=== PATIENT | male | born 1970 | race Caucasian/White ===

== ENCOUNTER 2024-07-02 08:51 | Emergency (ER) | payer OTHER, SELFPAY ==
[2024-07-02] VITALS (22 sets, daily range): BP systolic 114–145; BP diastolic 64–87; PULSE 49–77; RESP 16–18; TEMP 35.7–36.7; O2SAT 95–100
--- NOTE | 2024-07-02 09:00 | DI.US_ITS ---
Exam(s) US LOWER EXTREMITY VENOUS LT EXAM: US LOWER EXTREMITY VENOUS LT CLINICAL HISTORY: h/o DVT, redness, swelling, warmth (knee to foot) TECHNIQUE: Left lower extremity venous ultrasound performed using grayscale, color-flow, and spectra l Doppler analysis. COMPARISON: No exams were available for comparison FINDINGS: The left common femoral, femoral and popliteal veins demonstrate normal compressibility, augmentation , and color Doppler. The posterior tibial and peroneal veins are patent. The saphenofemoral junction is unremarkable. There is no evidence of a Bliss cyst. There is edema in the soft tissues of the l ower leg. IMPRESSION: No evidence of a left lower extremity DVT. DATA REPOSITORY:
--- NOTE | 2024-07-02 09:15 | ED.GENADUL_ITS ---
Discharge Plan Disposition Patient Disposition: Home Discharge Details Clinical Impression: Cellulitis Primary Care Provider: Alee Mclain ED Provider: Yun Menchaca Home Meds and New Rx's Prescriptions: New amoxicillin 875 mg tablet 875 mg PO BID Qty: 10 0RF doxycycline hyclate 100 mg capsule 100 mg PO BID Qty: 10 0RF No Action Anoro Ellipta 62.5-25 mcg/actuation blister with device 1 inh inhalation DAILY pantoprazole 40 mg tablet,delayed release (DR/EC) 40 mg PO DAILY acetaminophen 325 mg capsule 650 mg PO BID PRN buprenorphine-naloxone 2-0.5 mg film 2 film sublingual DAILY Rx Instructions: place 1 strip/tab under (each) side of tongue buprenorphine-naloxone 8-2 mg film 2 film sublingual DAILY Rx Instructions: place 1 strip/tab under (each) side of tongue amlodipine 10 mg tablet 10 mg PO DAILY metoprolol succinate 100 mg tablet extended release 24 hr 100 mg PO DAILY dabigatran etexilate [Pradaxa] 150 mg capsule 150 mg PO BID montelukast 10 mg tablet 10 mg PO DAILY lisinopril 30 mg tablet 30 mg PO DAILY albuterol sulfate 90 mcg/actuation HFA aerosol inhaler 1 inh inhalation 6XD PRN Discharge Instructions Additional Instructions: Please follow-up with your primary care provider/medical provider within the next 2 to 3 days for reassessment to make sure you are skin infection is healing up well. Take antibiotics as prescribed for the full course. Please note this may cause antibiotic associated diarrhea, so please try taking with probiotics such as yogurt or supplements. Elevate your leg above heart level to help with swelling and discomfort. Tylenol 650 mg every 6 hours may also be used for discomfort. Wash your legs daily with antibacterial soap and water apply a thin layer of bacitracin or triple antibiotic ointment. Avoid scratching, as this may open up skin and further contribute to infection Return to emergency care if develop new signs of worsening infection such as fever/chills, general feeling of unwellness, worsening swelling/redness/pain despite treatment, numbness to your foot, or if you are very worried and need to be rechecked again immediately HPI General Date/Time Provider Initiated Documentation: 07/02/24 08:55 . HPI Narrative: Saroj is a 54 year old male who presents to the ED today from [facility] for e valuation of L lower leg swelling/tenderness/warmth since yesterday afternoon. He does admit to scratching the skin on his legs a lot due to dry water in the facility, but denies recent trauma or inciting event. Denies fever/chills, general unwellness, nausea/vomiting, chest pain, shortness of breath, change in bowel or bladder function. 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 Physical exam remarkable for significant swelling, warmth, and tenderness from just below knee to the foot. Distal pulses intact, brisk cap refill. Multiple excoriations noted on bilateral lower legs. Calf measurement 48.5 (L) versus 44.0 (R). Full painless range of motion of knee. Range of motion to ankle is limited due to swelling. Patient is alert and oriented, easy work of breathing, no acute distress. DDx includes but is not limited to cellulitis, DVT despite anticoagulation. No red flags concerning for acute bony abnormality or neurological compromise. I independently interpreted the following tests: CBC and CMP unremarkable. Ultrasound of lower extremity performed, no DVT noted, tissue edema noted, consistent with clinical picture History and presentation consistent with uncomplicated cellulitis. Will treat with doxycycline and amoxicillin to cover for strep and staph coverage due to incarceration. Recommend close follow-up with medical staff for reevaluation. While in the emergency department Saroj received Tylenol for discomfort Reviewed discharge instructions with patient, including importance of elevation, antibiotic use, wound care, and avoidance of scratching. Educated on red flags indicating need for return to emergency care. Related Data Home Medications ?Medication ?Instructions ?Recorded ?Confirmed acetaminophen 325 mg capsule 650 mg PO BID PRN 07/02/24 07/02/24 albuterol sulfate 90 mcg/actuation 1 inh inhalation 6XD PRN 07/02/24 07/02/24 aerosol inhaler amlodipine 10 mg tablet 10 mg PO DAILY 07/02/24 07/02/24 amoxicillin 875 mg tablet 875 mg PO BID #10 tabs 07/02/24 buprenorphine 2 mg-naloxone 0.5 mg 2 film sublingual DAILY 07/02/24 07/02/24 sublingual film buprenorphine 8 mg-naloxone 2 mg 2 film sublingual DAILY 04/23/25 04/23/25 sublingual film dabigatran etexilate 150 mg 150 mg PO BID 07/02/24 07/02/24 capsule (Pradaxa) doxycycline hyclate 100 mg capsule 100 mg PO BID #10 caps 07/02/24 lisinopril 30 mg tablet 30 mg PO DAILY 07/02/24 07/02/24 metoprolol succinate 100 mg 100 mg PO DAILY 07/02/24 07/02/24 tablet,extended release 24 hr montelukast 10 mg tablet 10 mg PO DAILY 07/02/24 07/02/24 pantoprazole 40 mg tablet,delayed 40 mg PO DAILY 07/02/24 07/02/24 release umeclidinium 62.5 mcg-vilanterol 1 inh inhalation DAILY 07/02/24 07/02/24 25 mcg/actuation powdr for inhalation (Anoro Ellipta) Previous Rx's ?Medication ?Instructions ?Recorded amoxicillin 875 mg tablet 875 mg PO BID #10 tabs 07/02/24 doxycycline hyclate 100 mg capsule 100 mg PO BID #10 caps 07/02/24 Allergies Allergy/AdvReac Type Severity Reaction Status Date / Time codeine Allergy Intermediate Hives Unverified 07/02/24 09:04 sulfur dioxide Allergy Intermediate Hives Unverified 07/02/24 09:04 General Stated Complaint: RashLesion CARLOS A: 3 Review of Systems Narrative: see HPI Exam Const General: cooperative, healthy appearing, comfortable, no acute distress and well developed Nutritional Appearance: average body habitus Orientation: alert and oriented x3 Resp Effort & Inspection: normal respiratory effort and able to speak in complete sentences Skin General skin exam: excoriation (to bilat shins) Neuro General: patient alert, patient awake, tone normal, moves all extremities and no focal motor deficits Sensory Exam: no sensory deficits noted Extrem Right lower extremity: normal to inspection Left lower extremity: full ROM, lower leg (warmth, erythema, and swelling to lower leg from knee to foot) Details: no ecchymosis and foot Details: vascular exam Details: dorsalis pedis pulse present Course Vital Signs Vital signs: Vital Signs Temperature 36.7 C 07/02/24 08:59 Pulse 66 07/02/24 08:59 Respiratory Rate 16 07/02/24 08:59 Blood Pressure 139/77 07/02/24 08:59 Pulse Oximetry 96 07/02/24 08:59 Temperature 36.7 C 07/02/24 08:59 Temperature Source Tympanic 07/02/24 08:59 Pulse 66 07/02/24 08:59 Respiratory Rate 16 07/02/24 08:59 Blood Pressure 139/77 07/02/24 08:59 Blood Pressure Position Supine 07/02/24 08:59 Pulse Oximetry 96 07/02/24 08:59 Oxygen Delivery Method Room Air 07/02/24 08:59 Oxygen Flow Rate 0 07/02/24 08:59 Pain Level 10 07/02/24 08:59 Medical Decision Making Quality:SDOH Health Related Social Needs: No Data to Display PFSH All Active Problems (Updated 07/02/24 @ 12:14 by Yun Martínez) Cellulitis (Acute) Social History Smoking/Tobacco Use Status: Former Tobacco Use Quit Date: 11/15/23 Tobacco: How many years used: 30 Smoking risk assessment performed?: Yes Alcohol Intake: former Drug use: Never Substance use type: does not use Housing: other
[2024-07-02] MEDS: Acetaminophen 325 MG TAB 650 MG PO (09:36)
[2024-07-02 10:58] LABS: HCT 40.3 % (40.0-50.0); HGB 13.8 g/dL (13.5-17.5); Lymphocytes % 20.8 %; MCH 30.1 pg (27.0-33.0); MCHC 34.2 % (32.0-36.0); MCV 88 fL (80-95); MPV 10.3 fL (8.0-11.0); Platelet Count 239 10^3/uL (130-400); RBC 4.59 10^6/uL (4.36-5.78); RDW 12.7 % (11.8-14.1); RDW-SD 40.8 fL; WBC 9.62 10^3/uL (4.4-10.8)
[2024-07-02 10:59] LABS: Abs Immature Grans 0.02 10^3/uL (0.0-0.06); Absolute Basophil Count 0.09 10^3/uL (0.0-0.2); Absolute Eosinophil Count 0.27 10^3/uL (0.0-0.7); Absolute Monocyte Count 1.18 10^3/uL (0.1-0.8); Absolute Neutrophil Count 6.06 10^3/uL (1.2-6.7); Basophils % 0.9 %; Eosinophils % 2.8 %; Immature Grans % 0.2 %; Monocytes % 12.3 %
[2024-07-02] MEDS: Amoxicillin 875 MG TAB PO (11:12)
[2024-07-02] MEDS: Doxycycline Hyclate 100 MG CAP PO (11:12)
[2024-07-02 11:38] LABS: ALT 16 U/L (16-63); AST 16 U/L (15-37); Albumin 3.6 g/dL (3.4-5.0); Alkaline Phosphatase 88 U/L (46-116); Anion Gap 9.1 mmol/L (3-11); BUN 11 mg/dL (7-18); Bilirubin, Total 0.6 mg/dL (0.2-1.0); CO2 28.9 mmol/L (21.0-32.0); CREATININE 1.1 mg/dL (0.70-1.30); Calcium 9.4 mg/dL (8.5-10.1); Chloride 104 mmol/L (98-107); Estimated GFR 80.77 (mL/min/1.73m2); Glucose 102 mg/dL (74-106); Sodium 142 mmol/L (136-145); Total Protein 7.5 g/dL (6.4-8.2)
[2024-07-02] MEDS: Bacitracin 1 PACKET (12:26)
== END 2024-07-02 12:25 | disposition home or self-care (01) ==
PROVIDERS: Emergency Provider Nurse Practitioner Family; PCP Nurse Practitioner Adult Health
DX: L03.116 Cellulitis of left lower limb (principal)
CPT/HCPCS: 99283; 99284; 36415; 80053; 85025; 93971

== ENCOUNTER 2024-08-18 19:08 | Inpatient (IN) | payer MEDICAID, SELFPAY ==
[2024-08-18 19:39] VITALS: BP 117/77; PULSE 114; RESP 20; TEMP 38.2; O2SAT 97
--- NOTE | 2024-08-18 20:00 | DI.CT_ITS ---
Exam(s) CT LOWER EXTREMITY LT W EXAM: CT LOWER EXTREMITY LT W CLINICAL HISTORY: EVAL FOR INFECTION / ABSCESS. TECHNIQUE: Imaging Protocol: Axial computed tomography images with coronal and sagittal reformatted images were created and reviewed. CONTRAST MATERIAL: Intravenous: Omnipaque 350 Contrast volume:structured data in ml Contrast route:I V - Oral: yes / no COMPARISON: No exams were available for comparison FINDINGS: SOFT TISSUES: There is diffuse soft tissue edema in the subcutaneous tissues involving most of the lo wer leg dorsal proximal foot. There is no gas in the soft tissues. No formed abscess evident. Ther e is a small knee joint effusion noted. No radiopaque foreign bodies. OSSEOUS: No fractures. No osseous lesions. No evidence of osteomyelitis. IMPRESSION: Diffuse subcutaneous edema involving most of the lower leg and proximal dorsal foot. No soft tissue gas. No formed abscess evident. Small knee joint effusion noted. No significant osseous findings. RADIATION DOSE DELIVERED: 703.11mGy.cm Total DLP DATA REPOSITORY: All CT scans at this facility are submitted to the National Radiology Data Registry (NRDR) Dose Index Registry (DIR) with the [employer] (A[employer]). RADIATION OPTIMIZATION: All CT scans at this facility use at least one of these dose optimization te chniques: automated exposure control; mA and/or kV adjustment per patient size (includes targeted exa ms where dose is matched to clinical indication); or iterative reconstruction.
[2024-08-18 20:42] LABS: Lactate 2.2 mmol/L (<or=2.0)
[2024-08-18 20:46] LABS: Abs Immature Grans 0.31 10^3/uL (0.0-0.06); Absolute Eosinophil Count 0.05 10^3/uL (0.0-0.7); Absolute Lymphocyte Count 0.43 10^3/uL (1.2-3.4); Absolute Monocyte Count 0.36 10^3/uL (0.1-0.8); Basophils % 0.3 %; Eosinophils % 0.3 %; HCT 37.8 % (40.0-50.0); HGB 13.1 g/dL (13.5-17.5); Immature Grans % 1.8 %; Lymphocytes % 2.5 %; MCH 30.4 pg (27.0-33.0); MCHC 34.7 % (32.0-36.0); MCV 88 fL (80-95); MPV 10.6 fL (8.0-11.0); Monocytes % 2.1 %; Platelet Count 176 10^3/uL (130-400); RBC 4.31 10^6/uL (4.36-5.78); RDW 13.8 % (11.8-14.1); RDW-SD 44.6 fL; WBC 17.19 10^3/uL (4.4-10.8)
[2024-08-18 20:47] LABS: Absolute Basophil Count 0.05 10^3/uL (0.0-0.2); Absolute Neutrophil Count 15.99 10^3/uL (1.2-6.7); ESR 26 mm/hr (0-20)
[2024-08-18] MEDS: PIPERACILLIN/TAZO 4.5 GM in Normal Saline 100 ML IVPB (20:53)
[2024-08-18] MEDS: Ondansetron 4 MG/2 ML VIAL IVP (20:53)
[2024-08-18 21:09] LABS: ALT 59 U/L (16-63); AST 25 U/L (15-37); Albumin 3.4 g/dL (3.4-5.0); Alkaline Phosphatase 68 U/L (46-116); Anion Gap 9.6 mmol/L (3-11); BUN 19 mg/dL (7-18); Bilirubin, Total 0.5 mg/dL (0.2-1.0); CO2 25.4 mmol/L (21.0-32.0); CREATININE 1.5 mg/dL (0.70-1.30); Chloride 104 mmol/L (98-107); Creatine Kinase 348 U/L (39-308); Estimated GFR 55.67 (mL/min/1.73m2); Glucose 114 mg/dL (74-106); Potassium 3.4 mmol/L (3.5-5.1); Sodium 139 mmol/L (136-145); Total Protein 7.5 g/dL (6.4-8.2)
[2024-08-18] MEDS: Normal Saline - Diluent 50 ML VIAL IJ (21:14)
[2024-08-18] MEDS: Omnipaque 350 MG/ML 100 ML BTL IJ (21:18)
[2024-08-18] MEDS: Normal Saline 1,000 ML 1000 ML IV (21:36)
[2024-08-18] MEDS: VANCOMYCIN 1,500 MG in Normal Saline 250 ML 166.6666 MG IVPB (21:36)
--- NOTE | 2024-08-18 22:14 | W.ED.GENAD ---
Discharge Plan Disposition Patient Disposition: Admit to [facility] Condition: Fair Discharge Details Chief Complaint: RashLesion Clinical Impression: Cellulitis, Sepsis Primary Care Provider: Unknown,Unknown ED Provider: Rolly Alberts Home Meds and New Rx's Prescriptions: No Action umeclidinium-vilanterol [Anoro Ellipta] 62.5-25 mcg/actuation blister with device 1 inh inhalation DAILY pantoprazole 40 mg tablet,delayed release (DR/EC) 40 mg PO DAILY acetaminophen 325 mg capsule 650 mg PO BID PRN buprenorphine-naloxone 2-0.5 mg film 2 film sublingual DAILY Rx Instructions: place 1 strip/tab under (each) side of tongue buprenorphine-naloxone 8-2 mg film 2 film sublingual DAILY Rx Instructions: place 1 strip/tab under (each) side of tongue amlodipine 10 mg tablet 10 mg PO DAILY metoprolol succinate 100 mg tablet extended release 24 hr 100 mg PO DAILY montelukast 10 mg tablet 10 mg PO DAILY lisinopril 30 mg tablet 30 mg PO DAILY albuterol sulfate 90 mcg/actuation HFA aerosol inhaler 1 inh inhalation 6XD PRN HPI General Date/Time Provider Initiated Documentation: 08/18/24 19:47. Limitations to Documentation: no limitations. Information obtained by: patient and RN/MD. HPI Narrative: 54-year-old gentleman presents in custody from the local custodial. He reports that he has had 1 day of left leg pain swelling and redness. Associated with fever. He reports that the symptoms started overnight last night and have been progressively worsening throughout the day. He was given antibiotics and had his wound marked by the custodial nurse earlier today but reports persistent fever and worsening of the redness and pain in his leg. Of note the custodial nurse reports that several other inmates in his unit have had significant skin infections that have not responded to antibiotic therapy and have required hospitalization. Related Data Home Medications ?Medication ?Instructions ?Recorded ?Confirmed acetaminophen 325 mg capsule 650 mg PO BID PRN 07/02/24 08/18/24 albuterol sulfate 90 mcg/actuation 1 inh inhalation 6XD PRN 07/02/24 08/18/24 aerosol inhaler amlodipine 10 mg tablet 10 mg PO DAILY 07/02/24 08/18/24 buprenorphine 2 mg-naloxone 0.5 mg 2 film sublingual DAILY 07/02/24 08/18/24 sublingual film buprenorphine 8 mg-naloxone 2 mg 2 film sublingual DAILY 07/02/24 08/18/24 sublingual film lisinopril 30 mg tablet 30 mg PO DAILY 07/02/24 08/18/24 metoprolol succinate 100 mg 100 mg PO DAILY 07/02/24 08/18/24 tablet,extended release 24 hr montelukast 10 mg tablet 10 mg PO DAILY 07/02/24 08/18/24 pantoprazole 40 mg tablet,delayed 40 mg PO DAILY 07/02/24 08/18/24 release umeclidinium 62.5 mcg-vilanterol 1 inh inhalation DAILY 07/02/24 08/18/24 25 mcg/actuation powdr for inhalation (Anoro Ellipta) Allergies Allergy/AdvReac Type Severity Reaction Status Date / Time codeine Allergy Intermediate Hives Unverified 08/18/24 19:42 sulfur dioxide Allergy Intermediate Hives Unverified 08/18/24 19:42 General Stated Complaint: RashLesion CARLOS A: 3 Exam Narrative Exam Narrative: Review of Systems: All systems reviewed & are unremarkable except as noted in HPI and below Well-developed, no acute distress febrile NCAT Tachycardic Unlabored respiratory effort Nondistended abdomen With extensive circumferential erythema and warmth around the left calf. Wound does not extend or track above the knee. No joint involvement of the ankle or the knee. No appreciable crepitus or fluctuance noted left lower extremity There are several small lesions of folliculitis on the right lower extremity as well Course Vital Signs Vital signs: Vital Signs Temperature 38.2 C H 08/18/24 19:39 Pulse 114 H 08/18/24 19:39 Respiratory Rate 20 08/18/24 19:39 Blood Pressure 117/77 08/18/24 19:39 Pulse Oximetry 97 08/18/24 19:39 Temperature 38.2 C H 08/18/24 19:39 Pulse 114 H 08/18/24 19:39 Respiratory Rate 20 08/18/24 19:39 Blood Pressure 117/77 08/18/24 19:39 Blood Pressure Position Sitting 08/18/24 19:39 Pulse Oximetry 97 08/18/24 19:39 Oxygen Delivery Method Room Air 08/18/24 19:39 Oxygen Flow Rate 0 08/18/24 19:39 Lab/Test Results Lab/Test Results: 08/18/24 20:18 Blood Blood Culture - Pending 08/18/24 21:54 Blood Blood Culture - Pending Laboratory Tests Range/Units 08/18/24 20:18 WBC (4.4-10.8) 10^3/uL 17.19 H RBC (4.36-5.78) 10^6/uL 4.31 L Hgb (13.5-17.5) g/dL 13.1 L Hct (40.0-50.0) % 37.8 L MCV (80-95) fL 88 MCH (27.0-33.0) pg 30.4 MCHC (32.0-36.0) % 34.7 RDW (11.8-14.1) % 13.8 Plt Count (130-400) 10^3/uL 176 MPV (8.0-11.0) fL 10.6 Immature Gran % % 1.8 Neutrophils % % 93.0 Lymphocytes % % 2.5 Monocytes % % 2.1 Eosinophils % % 0.3 Basophils % % 0.3 Nucleated RBC % (0.0-0.3) % 0.0 Absolute Neutrophils (1.2-6.7) 10^3/uL 15.99 H Absolute Lymphocytes (1.2-3.4) 10^3/uL 0.43 L Absolute Monocytes (0.1-0.8) 10^3/uL 0.36 Absolute Eosinophils (0.0-0.7) 10^3/uL 0.05 Absolute Basophils (0.0-0.2) 10^3/uL 0.05 ESR (0-20) mm/hr 26 H VBG Lactate (<or=2.0) mmol/L 2.2 H* Sodium (136-145) mmol/L 139 Potassium (3.5-5.1) mmol/L 3.4 L Chloride (98-107) mmol/L 104 Carbon Dioxide (21.0-32.0) mmol/L 25.4 Anion Gap (3-11) mmol/L 9.6 BUN (7-18) mg/dL 19 H Creatinine (0.70-1.30) mg/dL 1.5 H Est GFR (CKD-EPI 2020) (mL/min/1.73m2) 55.67 Glucose (74-106) mg/dL 114 H Calcium (8.5-10.1) mg/dL 9.0 Total Bilirubin (0.2-1.0) mg/dL 0.5 AST (15-37) U/L 25 ALT (16-63) U/L 59 Alkaline Phosphatase (46-116) U/L 68 Creatine Kinase (39-308) U/L 348 H C-Reactive Protein (<or=0.5) mg/dL 16.70 H Total Protein (6.4-8.2) g/dL 7.5 Albumin (3.4-5.0) g/dL 3.4 Medical Decision Making Emergent evaluation of left lower extremity skin color changes. In the setting of fever, tachycardia and extensive cellulitis I am concerned for possible sepsis deep space infection or myositis. Patient has received doxycycline and IM Rocephin today at the custodial but has had worsening of his symptoms. He arrives persistently febrile and tachycardic. Plan for labs cultures inflammatory markers and will start broad-spectrum antibiotics. Lab work was reviewed and notable for significant leukocytosis. There is no significant anemia. The patient does have an elevated lactic acid at 2.2 as well as elevated ESR and CRP. Renal function is slightly elevated at 1.5. Patient has been resuscitated with IV fluids in addition to the broad-spectrum antibiotics. A CT image lower extremity was obtained to evaluate for any deep space infection tracking or abscess. I have discussed with the hospitalist for admission for continued IV antibiotic therapy. the CT had not been completed when I discussed with the hospitalist for admission. Quality:SDAK Health Related Social Needs: No Data to Display PFSH All Active Problems (Updated 08/18/24 @ 22:19 by Rolly Alberts MD) Sepsis (Acute) Cellulitis (Acute) Social History Smoking/Tobacco Use Status: Former Tobacco Use Quit Date: 11/15/23 Tobacco: How many years used: 30 Smoking risk assessment performed?: Yes Alcohol Intake: former Drug use: Never Substance use type: does not use Housing: other
--- NOTE | 2024-08-18 22:39 | W.PM.HP.N ---
Date of service: 08/18/24 Time of Service: 22:39 Assessment and Plan Assessment and plan (1) Cellulitis: Status: Acute Assessment and plan: Rapid onset non-purlulent infection with some tracking up leg, most c/w strep. Started on pip/tazo and vanco, continue this for now pending blood cultures. given h/o DVT will get LE doppler in AM on that side CT LE read pending, but no clear complicated infection/abscess. (2) Severe sepsis: Status: Acute Assessment and plan: Fever, elevated WBC, HR, lactate, and HODAN c/w severe sepsis. BP has been stable. Give another liter of fluid, abx as above. (3) Hypertension: Assessment and plan: Continue outpatient therapy (4) Opioid use disorder, moderate, dependence: Assessment and plan: Continue suboxone (5) GERD (gastroesophageal reflux disease): Assessment and plan: continue PPI (6) COPD (chronic obstructive pulmonary disease): Assessment and plan: Not active, continue LAMA and albuterol prn (7) DVT prophylaxis: Status: Acute Assessment and plan: enoxaparin History of Present Illness History of Present Illness Chief Complaint: leg pain/swelling, fever Narrative: 54-year-old gentleman with history of HTN, opioid use disorder on burprenorphine, HTN, and COPD who presented in custody from the local [facility] with 1 day of worsening left leg pain swelling and redness and fevers despite starting on IM ceftriaxone and doxycycline in the [facility] earlier today. He woke up in the [facility] with shaking chills and fever, about 2:30am. He felt so bad he couldn't get up in the morning to get his medication, started to vomit. He noted his left lower leg was red and hot and tender. He has had infections multiple times in his legs, left more than right, and has had a DVT in that leg last year. He was take to the [facility] and given a shot of IM cefriaxone and doxycycline and antiemetic. Despite this, his symtpoms worsened and he was taken to the ED. He is fatigued, not much appetite, but has been drinking and keeping fluids down. Of note, another inmate from the facility was recently hospitalized with multi-resistant MRSA. Review of Systems All systems reviewed & are unremarkable except as noted in HPI and below PFSH All Active Problems (Updated 08/19/24 @ 00:24 by Saroj Echols) Severe sepsis (Acute) DVT prophylaxis (Acute) Cellulitis (Acute) Medical History (Updated 08/19/24 @ 00:24 by Saroj Echols) H/O pyloric stenosis GERD (gastroesophageal reflux disease) COPD (chronic obstructive pulmonary disease) Opioid use disorder, moderate, dependence on buprenorphine/naloxone Hypertension Surgical History (Updated 08/19/24 @ 00:18 by Saroj Echols) H/O pyloromyotomy as Family History (Updated 08/19/24 @ 00:19 by Saroj Echols) Father Heart disease Cancer Mother Cancer Lung Social History (Updated 08/19/24 @ 00:19 by Saroj Echols) Smoking/Tobacco Use Status: Former Tobacco Use Quit Date: 11/15/23 Tobacco: How many years used: 30 Smoking risk assessment performed?: Yes Alcohol Intake: former Drug use: Never Substance use type: does not use Details: no h/o IVDU Housing: other Additional Social history: currently encarcerated Meds Allergies and Home Medications Allergies Allergy/AdvReac Type Severity Reaction Status Date / Time codeine Allergy Intermediate Hives Unverified 08/18/24 19:42 sulfur dioxide Allergy Intermediate Hives Unverified 08/18/24 19:42 Home Medications ?Medication ?Instructions ?Recorded ?Confirmed ?Type acetaminophen 325 mg capsule 650 mg PO BID PRN 07/02/24 08/18/24 History albuterol sulfate 90 mcg/actuation 1 inh inhalation 6XD PRN 07/02/24 08/18/24 History aerosol inhaler amlodipine 10 mg tablet 10 mg PO DAILY 07/02/24 08/18/24 History buprenorphine 2 mg-naloxone 0.5 mg 2 film sublingual DAILY 07/02/24 08/18/24 History sublingual film buprenorphine 8 mg-naloxone 2 mg 2 film sublingual DAILY 07/02/24 08/18/24 History sublingual film lisinopril 30 mg tablet 30 mg PO DAILY 07/02/24 08/18/24 History metoprolol succinate 100 mg 100 mg PO DAILY 07/02/24 08/18/24 History tablet,extended release 24 hr montelukast 10 mg tablet 10 mg PO DAILY 07/02/24 08/18/24 History pantoprazole 40 mg tablet,delayed 40 mg PO DAILY 07/02/24 08/18/24 History release umeclidinium 62.5 mcg-vilanterol 1 inh inhalation DAILY 07/02/24 08/18/24 History 25 mcg/actuation powdr for inhalation (Anoro Ellipta) Exam Narrative Exam Narrative: GEN: Alert and oriented x 4, appears fatigued but not toxix, cooperative, gives linear history. No acute distress at rest. HEENT: Head atraumatic. Conjunctiva clear, no icterus. PEERL, EOMI. no rhinorrhea. MMM, OP benign. Neck is supple with no masses or lymphadenopathy, trachea midline LUNGS: CTAB with normal effort CV: RRR with 1/6 systolic murmur only at LUSB, no radiation. no gallops, or rubs. ABD: active bowel sounds, soft, nontender and nondistended. No masses. EXT: no cyanosis, clubbing. 1+ marya ankle/foot edema (seperate from cellulitis below) MSK: No joint redness or swelling. See skin. Lymph: +left axillary LAD NEURO: CN 2-12 grossly intact. Normal movement of 4 extremities. Normal speech and coordination. No tremor SKIN: Clammy. Left lower leg from just below knee to ankle with red tender circumferential rash, with some seeping from scabbed excoriations, serosanguinous. Some slightly red tender area in medial thigh. PSYCH: normal mood and affect, nl thought process Results Labs 08/18/24 20:18 08/18/24 20:18 Labs: Laboratory Results - last 24 hr 08/18/24 20:18 WBC 17.19 H RBC 4.31 L Hgb 13.1 L Hct 37.8 L MCV 88 MCH 30.4 MCHC 34.7 RDW 13.8 Plt Count 176 MPV 10.6 Immature Gran % 1.8 Neutrophils % 93.0 Lymphocytes % 2.5 Monocytes % 2.1 Eosinophils % 0.3 Basophils % 0.3 Nucleated RBC % 0.0 Absolute Neutrophils 15.99 H Absolute Lymphocytes 0.43 L Absolute Monocytes 0.36 Absolute Eosinophils 0.05 Absolute Basophils 0.05 ESR 26 H VBG Lactate 2.2 H* Sodium 139 Potassium 3.4 L Chloride 104 Carbon Dioxide 25.4 Anion Gap 9.6 BUN 19 H Creatinine 1.5 H Est GFR (CKD-EPI 2020) 55.67 Glucose 114 H Calcium 9.0 Total Bilirubin 0.5 AST 25 ALT 59 Alkaline Phosphatase 68 Creatine Kinase 348 H C-Reactive Protein 16.70 H Total Protein 7.5 Albumin 3.4 Last Vital Signs Temp 38.2 C H 08/18/24 19:39 Pulse 114 H 08/18/24 19:39 Resp 20 08/18/24 19:39 BP 117/77 08/18/24 19:39 Pulse Ox 97 08/18/24 19:39 Time Spent Time spent with Patient: 55-74 minutes Time was spent: preparing to see the patient(eg.review tests), obtaining and/or reviewing separately otained hiistory, ordering medications,tests, procedures, referring, communicating with other health healthcare liaison, indepentently interpreting results, counseling the patient and care coordination
[2024-08-19] VITALS (10 sets, daily range): BP systolic 116–151; BP diastolic 60–80; PULSE 79–105; RESP 15–18; TEMP 36.7–39.7; O2SAT 95–98
--- NOTE | 2024-08-19 00:06 | W.PC.ACHO ---
Registration Status: Primary Language: Preferred Language: ED Information & Data Chief Complaint RashLesion 08/18/24 22:19 Triage Note Woke up late last night with 08/18/24 19:39 chills, noticed large, red, tender rash on lower left leg. Pain in inner thigh. Hx of DVT. Fever Most Recent Vital Signs Temperature 38.2 C H 08/18/24 19:39 Pulse 114 H 08/18/24 19:39 Respiratory Rate 20 08/18/24 19:39 Blood Pressure 117/77 08/18/24 19:39 Blood Pressure Position Sitting 08/18/24 19:39 Pulse Oximetry 97 08/18/24 19:39 Oxygen Delivery Method Room Air 08/18/24 19:39 Oxygen Flow Rate 0 08/18/24 19:39 Allergies codeine Allergy (Intermediate, Unverified 08/18/24 19:42) Hives sulfur dioxide Allergy (Intermediate, Unverified 08/18/24 19:42) Hives Active Medications Generic Name Dose Route Start Last Admin Trade Name Brijesh PRN Reason Stop Dose Admin Iohexol 100 ml 08/18/24 21:30 08/18/24 21:18 Omnipaque 350 Mg/Ml 100 Ml Btl IJ 09/17/24 23:59 100 ml DIRECTED SAMEER Administration Sodium Chloride 50 ml 08/18/24 21:15 08/18/24 21:14 Normal Saline - Diluent 50 Ml Vial IJ 50 ml .FOR DI USE SAMEER Administration IV IV Catheter Type [Left Forearm Saline Lock ] IV Catheter Gauge [Left 18 Forearm] Diet Orders Category Date Time Status Regular/Normal [DIET] Nutrition 08/19/24 Breakfast Ordered Diagnostics 08/18/24 Range/Units 20:18 WBC 17.19 H (4.4-10.8) 10^3/uL RBC 4.31 L (4.36-5.78) 10^6/uL Hgb 13.1 L (13.5-17.5) g/dL Hct 37.8 L (40.0-50.0) % MCV 88 (80-95) fL MCH 30.4 (27.0-33.0) pg MCHC 34.7 (32.0-36.0) % RDW 13.8 (11.8-14.1) % Plt Count 176 (130-400) 10^3/uL MPV 10.6 (8.0-11.0) fL Immature Gran % 1.8 % Neutrophils % 93.0 % Lymphocytes % 2.5 % Monocytes % 2.1 % Eosinophils % 0.3 % Basophils % 0.3 % Nucleated RBC % 0.0 (0.0-0.3) % Absolute Neutrophils 15.99 H (1.2-6.7) 10^3/uL Absolute Lymphocytes 0.43 L (1.2-3.4) 10^3/uL Absolute Monocytes 0.36 (0.1-0.8) 10^3/uL Absolute Eosinophils 0.05 (0.0-0.7) 10^3/uL Absolute Basophils 0.05 (0.0-0.2) 10^3/uL ESR 26 H (0-20) mm/hr VBG Lactate 2.2 H* (<or=2.0) mmol/L Sodium 139 (136-145) mmol/L Potassium 3.4 L (3.5-5.1) mmol/L Chloride 104 (98-107) mmol/L Carbon Dioxide 25.4 (21.0-32.0) mmol/L Anion Gap 9.6 (3-11) mmol/L BUN 19 H (7-18) mg/dL Creatinine 1.5 H (0.70-1.30) mg/dL Est GFR (CKD-EPI 2020) 55.67 (mL/min/1.73m2) Glucose 114 H (74-106) mg/dL Calcium 9.0 (8.5-10.1) mg/dL Total Bilirubin 0.5 (0.2-1.0) mg/dL AST 25 (15-37) U/L ALT 59 (16-63) U/L Alkaline Phosphatase 68 (46-116) U/L Creatine Kinase 348 H (39-308) U/L C-Reactive Protein 16.70 H (<or=0.5) mg/dL Total Protein 7.5 (6.4-8.2) g/dL Albumin 3.4 (3.4-5.0) g/dL 08/18/24 22:19 Blood Culture - Pending Blood 08/18/24 20:18 Blood Culture - Pending Blood Intake and Output - 24 Hour Total 08/18/24 19:08 thru 08/18/24 21:38 Intake Total 100 Balance 100 Weight 114.759 kg Intake: IV 100 Falls Risk Assessment History of Falls No History 08/18/24 19:43 Contributing Factors No Factors 08/18/24 19:43 Ambulatory Aids Independent 08/18/24 19:43 Tubes/Lines None 08/18/24 19:43 Gait Evaluation No gait disturbance 08/18/24 19:43 Cognition No cognitive impairment 08/18/24 19:43 Fall Total Score 0 08/18/24 19:43 Level of Risk Standard/Low Risk 08/18/24 19:43 Problems Sepsis (Acute) Cellulitis (Acute) v v v v v v v v v Sending and/or Receiving Nurses: Please use comment section below to note any information pertinent to the patient hand-off not included above. Information / Comments: From correctional facility with guard, woke up with chills, fever at facility, hx of DVT. LLE to inner thigh redness. Zosyn and Vanco given in ER. #18 LFA Report received from: Cherise Nguyen RN from ED
[2024-08-19] MEDS: ACETAMINOPHEN 1,000 MG/100 ML BAG 400 MG IVPB (00:12)
--- NOTE | 2024-08-19 00:58 | DI.VRAD_ITS ---
PROCEDURE INFORMATION: Exam: CT Left Lower Extremity With Contrast Exam date and time: 08/18/2024 9:13 PM Age: 54 years old Clinical indication: Pain; Other: Eval for infection/ abscess TECHNIQUE: Imaging protocol: CT of the left lower extremity with intravenous contrast was performed. Contrast material: OMNIPAQUE 350; Contrast volume: 100 ml; Contrast route: INTRAVENOUS (IV); COMPARISON: US LOWER EXTREMITY VENOUS LT 07/02/2024 9:30 AM FINDINGS: Bones/joints: Small volume knee joint effusion. Soft tissues: There is diffuse subcutaneous edema involving most of the lower leg and proximal dorsal foot as well as the pretibial/prepatellar subcutaneous tissue. No soft tissue gas or abscess. Vasculature: No vascular thrombosis. IMPRESSION: 1. Small volume knee joint effusion. 2. There is diffuse subcutaneous edema involving most of the lower leg and proximal dorsal foot as well as the pretibial/prepatellar subcutaneous tissue. No soft tissue gas or abscess. Dictated and Authenticated by: Clarke Foster MD. Orderin Lexus Valentin MD
[2024-08-19] MEDS: Lactated Ringers 1,000 ML 1000 ML IV (01:26)
[2024-08-19 01:34] LABS: MRSA PCR Positive (Negative)
[2024-08-19] MEDS: Normal Saline Flush 10 ML SYR IVP ×7 (02:19→21:40)
[2024-08-19] MEDS: PIPERACILLIN/TAZO 4.5 GM in Normal Saline 100 ML IVPB ×4 (02:45→20:17)
[2024-08-19] MEDS: Normal Saline 500 ML IV (04:29)
[2024-08-19] MEDS: Acetaminophen 325 MG TAB 650 MG PO ×3 (05:58→17:57)
--- NOTE | 2024-08-19 07:00 | DI.US_ITS ---
Exam(s) US LOWER EXTREMITY VENOUS LT EXAM: US LOWER EXTREMITY VENOUS LT CLINICAL HISTORY: left leg swelling/pain, cellulitis, but h/o DVT TECHNIQUE: Grayscale, color, and doppler imaging of the deep venous system of the left lower extremi ty was performed. COMPARISON: US US LOWER EXTREMITY VENOUS LT from 07/02/2024 FINDINGS: There is no evidence of intraluminal thrombus and there is normal compression and augmentation demons trated within the common femoral vein, femoral vein, and popliteal vein. In the ipsilateral calf the interrogated veins also exhibit normal compression/ augmentation properti es. The ipsilateral saphenofemoral junction is patent. There are slightly prominent lymph nodes in the left groin region which appear reactive. Largest of these measures 3.8 x 1.8 x 2.6 cm. IMPRESSION: 1. No evidence of DVT in the left lower extremity. 2. Reactive appearing lymph nodes noted in the left groin. No abnormal fluid collection. DATA REPOSITORY:
[2024-08-19] MEDS: amLODIPine 10 MG TAB PO (08:00)
[2024-08-19] MEDS: Buprenorphine/Naloxone 8 mg/2 mg FILM 2 EACH SL (08:00)
[2024-08-19] MEDS: Lisinopril 10 MG TAB 30 MG PO (08:00)
[2024-08-19] MEDS: Buprenorphine/Naloxone 2 mg/0.5 mg FILM 2 EACH SL (08:00)
[2024-08-19] MEDS: Pantoprazole 40 MG TABCR PO (08:01)
[2024-08-19] MEDS: Metoprolol CR 100 MG TABCR PO (08:01)
[2024-08-19] MEDS: Enoxaparin 40 MG/0.4 ML SYR SC (08:03)
[2024-08-19 08:04] LABS: HCT 34.9 % (40.0-50.0); HGB 11.9 g/dL (13.5-17.5); MCH 30.4 pg (27.0-33.0); MCHC 34.1 % (32.0-36.0); MCV 89 fL (80-95); MPV 10.5 fL (8.0-11.0); Platelet Count 133 10^3/uL (130-400); RBC 3.91 10^6/uL (4.36-5.78); RDW 14.1 % (11.8-14.1); RDW-SD 45.6 fL; WBC 13.22 10^3/uL (4.4-10.8)
[2024-08-19] MEDS: Montelukast 10 MG TAB PO (08:04)
[2024-08-19 08:12] LABS: Anion Gap 9.8 mmol/L (3-11); BUN 18 mg/dL (7-18); CO2 24.2 mmol/L (21.0-32.0); CREATININE 1.3 mg/dL (0.70-1.30); Calcium 8.1 mg/dL (8.5-10.1); Chloride 105 mmol/L (98-107); Glucose 111 mg/dL (74-106); Potassium 3.1 mmol/L (3.5-5.1); Sodium 139 mmol/L (136-145)
[2024-08-19] MEDS: Tiotropium/Olodaterol 10 PUFF INHALER 2 PUFF IH (08:14)
--- NOTE | 2024-08-19 09:36 | PDOC.CMIN ---
Date of service: 08/19/24 Time of Service: 09:36 Care Management Initial Assmt Initial Assessment Reason for Hospitalization: cellulitis Functional Status/Living Situation Patient Presentation: Saroj was sitting up in bed on shackles accompanied by a first officer and flight instructor. He was ppolite and agreeable to conversation. Saroj is originally from [facility]. He is and has 2 daughters that live locally and that he is close to. He is a contractor/builder by occupation. Saroj is independent at baseline and does not need to use a walker or cane. Saroj was admitted with cellulitis and sepsis and is receiving IV antibiotics. Town of Residence: [facility] Resides with: Other (in group home) Employment Status: Unemployed Instrumental Activities of Daily Living (ADLs): Independent Medications Medication Management: No Issues/Barriers identified Advance Directives Advance Directives: Do you have an Advance Directive: N 07/02/24 08:56 AD On File at [facility]: N 11/03/15 09:34 Date Asked 08/18/24 08/18/24 19:10 AD Date Reviewed COLST On File at [facility] COLST Date Scanned Code Status Resuscitation Status Full Code Portal Pt does not currently have a portal and education provided: Yes Insurance Coverage/Financial Issues Insurance: self pay Care Team Visit Care Team Role Provider Type Kulwinder Pope MD MD [facility] STAFF PHYSICIAN Unknown Unknown Primary Care Provider STAFF PHYSICIAN Rolly Alberts MD Emergency Provider [facility] STAFF PHYSICIAN Saroj Echols Admit Provider [facility] STAFF PHYSICIAN Attending Provider Discharge Potential Discharge Needs: Other (return to corrections) Anticipated Barriers to Discharge: None Identified Patient/Family Education Needs: Review discharge instructions, discuss Ask Me Three Transportation: Facility Transport Plan: Anticipate Saroj will return to the [facility] when medically stable. He will follow up with facility providers and plan of care and transport with corrections staff. Social Determinants of Health Screening Will the Patient Participate in the Screening?: Unable to obtain Comments: currently in a correctional facility Health Related Social Needs Health related social needs details: currently in correctional facility PFSH All Active Problems (Updated 08/19/24 @ 00:24 by Saroj Echols) Severe sepsis (Acute) DVT prophylaxis (Acute) Cellulitis (Acute) Medical History (Updated 08/19/24 @ 00:24 by Saroj Echols) H/O pyloric stenosis GERD (gastroesophageal reflux disease) COPD (chronic obstructive pulmonary disease) Opioid use disorder, moderate, dependence on buprenorphine/naloxone Hypertension Surgical History (Updated 08/19/24 @ 00:18 by Saroj Echols) H/O pyloromyotomy as infant Family History (Updated 08/19/24 @ 00:19 by Saroj Echols) Father Heart disease Cancer Mother Cancer Lung Social History (Updated 08/19/24 @ 00:19 by Saroj Echols) Smoking/Tobacco Use Status: Former Tobacco Use Quit Date: 11/15/23 Tobacco: How many years used: 30 Smoking risk assessment performed?: Yes Alcohol Intake: former Drug use: Never Substance use type: does not use Details: no h/o IVDU Housing: other Additional Social history: currently encarcerated
[2024-08-19 09:48] LABS: Absolute Monocyte Count 0.13 10^3/uL (0.1-0.8); Absolute Neutrophil Count 12.69 10^3/uL (1.2-6.7); Bands % 13 %
[2024-08-19 09:49] LABS: Diff Comment Manual Differential; RBC Morphology Normal
--- NOTE | 2024-08-19 10:07 | PGE_ITS ---
Date of Service Date of service: 08/19/24 Time of Service: 10:07 Assessment and Plan Assessment and plan (1) Severe sepsis: Status: Acute Assessment and plan: -patient met criteria for severe sepsis with temp 100.8oF, WBC 17.9, HR 114bpm, LLE cellulitis as source of infection, and an initial lactatic acid of 2.2 -repeat LA was not obtained -s/p 2L IVFs -treatment for cellulitis as noted below (2) Cellulitis: Status: Acute Assessment and plan: -Rapid onset non-purlulent infection with some tracking up leg, most c/w strep. -Started on pip/tazo and vanco, continue this for now pending blood cultures. -given h/o DVT but LLE US negative -CT LE showed no gas or abscess, just diffuse subcu eema (3) Hypertension: Assessment and plan: -Continue outpatient therapy (4) Opioid use disorder, moderate, dependence: Assessment and plan: -Continue suboxone (5) GERD (gastroesophageal reflux disease): Assessment and plan: -continue PPI (6) COPD (chronic obstructive pulmonary disease): Assessment and plan: -without acute exacerbation -continue LAMA and albuterol prn (7) DVT prophylaxis: Status: Acute Assessment and plan: enoxaparin Subjective Subjective Interval history since last seen: Patient states that he is overall feeling better but is experiencing some intermittent nausea. Otherwise he has no other complaints or concerns at this time. Exam Narrative Exam Narrative: Well-appearing gentleman sitting up at the edge of the bed in handcuffs as he is in state custody with presence of guard, no acute distress, ANO x 4, heart regular rhythm, lungs good auscultation bilaterally, abdomen soft, nontender, nondistended, area of demarcation with improved erythema, without drainage, fluctuance Objective Last Vital Signs Temp 98.6 F 08/19/24 09:52 Pulse 90 08/19/24 09:52 Resp 18 08/19/24 09:52 BP 135/80 08/19/24 09:52 Pulse Ox 96 08/19/24 09:52 Laboratory Results - last 24 hr 08/18/24 08/19/24 08/19/24 20:18 00:07 07:44 WBC 17.19 H 13.22 H RBC 4.31 L 3.91 L Hgb 13.1 L 11.9 L Hct 37.8 L 34.9 L MCV 88 89 MCH 30.4 30.4 MCHC 34.7 34.1 RDW 13.8 14.1 Plt Count 176 133 MPV 10.6 10.5 Immature Gran % 1.8 0.0 Neutrophils % 93.0 83.0 Band Neutrophils % 13 Lymphocytes % 2.5 3.0 Monocytes % 2.1 1.0 Eosinophils % 0.3 0.0 Basophils % 0.3 0.0 Nucleated RBC % 0.0 0.0 Absolute Neutrophils 15.99 H 12.69 H Absolute Lymphocytes 0.43 L 0.40 L Absolute Monocytes 0.36 0.13 Absolute Eosinophils 0.05 0.00 Absolute Basophils 0.05 0.00 RBC Morphology Normal ESR 26 H VBG Lactate 2.2 H* Sodium 139 139 Potassium 3.4 L 3.1 L Chloride 104 105 Carbon Dioxide 25.4 24.2 Anion Gap 9.6 9.8 BUN 19 H 18 Creatinine 1.5 H 1.3 Est GFR (CKD-EPI 2020) 55.67 66.10 Glucose 114 H 111 H Calcium 9.0 8.1 L Total Bilirubin 0.5 AST 25 ALT 59 Alkaline Phosphatase 68 Creatine Kinase 348 H C-Reactive Protein 16.70 H Total Protein 7.5 Albumin 3.4 MRSA (TEM-PCR) Positive A Time Spent with Patient Time Spent with Patient: >50 minutes Time was spent: preparing to see the patient(eg.review tests), obtaining and/or reviewing separately otained hiistory, ordering medications,tests, procedures, referring, communicating with other health nurse healthcare manager, indepentently interpreting results, counseling the patient and care coordination
[2024-08-19] MEDS: Ondansetron O.D.T. 4 MG TABEF PO (10:24)
[2024-08-19 10:30] LABS: Vancomycin, Trough 5.7 ug/mL (10.0-20.0)
[2024-08-19] MEDS: VANCOMYCIN/WATER (PEG) 1 GM/200 ML BAG IVPB (10:30)
[2024-08-19 15:16] LABS: Vancomycin, Random 17.2 ug/mL
[2024-08-19] MEDS: VANCOMYCIN/WATER (PEG) 750 MG/150 ML BAG 150 MG IVPB ×2 (16:06→21:40)
[2024-08-19] MEDS: Ibuprofen 600 MG TAB PO (21:40)
[2024-08-20] MEDS: Normal Saline Flush 10 ML SYR IVP ×8 (02:34→21:39)
[2024-08-20] MEDS: PIPERACILLIN/TAZO 4.5 GM in Normal Saline 100 ML IVPB ×4 (02:35→19:58)
[2024-08-20 03:26] VITALS: BP 126/80; PULSE 72; RESP 16; TEMP 36.6; O2SAT 98
[2024-08-20] MEDS: VANCOMYCIN/WATER (PEG) 750 MG/150 ML BAG 150 MG IVPB ×4 (03:37→21:38)
[2024-08-20] MEDS: Acetaminophen 325 MG TAB 650 MG PO ×4 (06:09→23:59)
[2024-08-20 06:29] LABS: HCT 34.1 % (40.0-50.0); HGB 11.2 g/dL (13.5-17.5); MCH 28.6 pg (27.0-33.0); MCHC 32.8 % (32.0-36.0); MCV 87 fL (80-95); MPV 10.5 fL (8.0-11.0); Platelet Count 127 10^3/uL (130-400); RBC 3.92 10^6/uL (4.36-5.78); RDW 13.6 % (11.8-14.1); RDW-SD 43.3 fL; WBC 10.63 10^3/uL (4.4-10.8)
[2024-08-20 07:30] VITALS: BP 131/78; PULSE 66; RESP 16; TEMP 37.2; O2SAT 96
[2024-08-20] MEDS: Lisinopril 10 MG TAB 30 MG PO (08:19)
[2024-08-20] MEDS: Metoprolol CR 100 MG TABCR PO (08:20)
[2024-08-20] MEDS: amLODIPine 10 MG TAB PO (08:20)
[2024-08-20] MEDS: Pantoprazole 40 MG TABCR PO (08:20)
[2024-08-20] MEDS: Montelukast 10 MG TAB PO (08:21)
[2024-08-20] MEDS: Buprenorphine/Naloxone 2 mg/0.5 mg FILM 2 EACH SL (08:21)
[2024-08-20] MEDS: Buprenorphine/Naloxone 8 mg/2 mg FILM 2 EACH SL (08:22)
[2024-08-20] MEDS: Enoxaparin 40 MG/0.4 ML SYR SC (08:22)
[2024-08-20] MEDS: Tiotropium/Olodaterol 10 PUFF INHALER 2 PUFF IH (08:40)
--- NOTE | 2024-08-20 09:15 | PDOC.CMPRO ---
Date of service: 08/20/24 Time of Service: 09:16 Care Management Progress Note Progress Note Text Progress Note Text: Saroj continues to be treated for cellulitis of his LLE. He had fever again last evening (39.7) but has been afebrile so far today. Saroj's vital signs are stable and his WBC has returned to normal. If he continues to improve, he will likely be ready for discharge tomorrow, per provider. CM will follow. Discharge Potential Discharge Needs: Other (return to corrections) Anticipated Barriers to Discharge: None Identified Patient/Family Education Needs: Review discharge instructions, discuss Ask Me Three Transportation: Facility Transport Plan: Anticipate Saroj will return to the [facility] when medically stable. He will follow up with facility providers and plan of care and transport with corrections staff. CM will continue to support discharge planning efforts. Social Determinants of Health Screening Will the Patient Participate in the Screening?: Unable to obtain Comments: currently in a correctional facility Health Related Social Needs Health related social needs details: currently in correctional facility
--- NOTE | 2024-08-20 09:59 | PGE_ITS ---
Date of Service Date of service: 08/20/24 Time of Service: 09:59 Assessment and Plan Assessment and plan (1) Severe sepsis: Status: Acute Assessment and plan: -patient met criteria for severe sepsis with temp 100.8oF, WBC 17.9, HR 114bpm, LLE cellulitis as source of infection, and an initial lactatic acid of 2.2 -repeat LA was not obtained -s/p 2L IVFs -treatment for cellulitis as noted below (2) Cellulitis: Status: Acute Assessment and plan: -Rapid onset non-purlulent infection with some tracking up leg, most c/w strep. -Started on pip/tazo and vanco, continue this for now pending blood cultures. -continued to have fevers 08/19, last 103.5oF at 19:39 08/19 -given h/o DVT but LLE US negative -CT LE showed no gas or abscess, just diffuse subcu edema -plan to monitor until afebrile for 24hrs prior to transitioning to PO abx and discharge (3) Hypertension: Assessment and plan: -Continue outpatient therapy (4) Opioid use disorder, moderate, dependence: Assessment and plan: -Continue suboxone (5) GERD (gastroesophageal reflux disease): Assessment and plan: -continue PPI (6) COPD (chronic obstructive pulmonary disease): Assessment and plan: -without acute exacerbation -continue LAMA and albuterol prn (7) DVT prophylaxis: Status: Acute Assessment and plan: enoxaparin Subjective Subjective Interval history since last seen: Patient states that he is feeling better as compared to yesterday and last night where he continued to have fevers up to 103.5oF. Otherwise he has no other complaints or concerns at this time. Exam Narrative Exam Narrative: Well-appearing gentleman sitting up at the edge of the bed in handcuffs as he is in state custody with presence of guard, no acute distress, ANO x 4, heart regular rhythm, lungs good auscultation bilaterally, abdomen soft, nontender, nondistended, area of demarcation with improved erythema as compared to previous day and remains without drainage, fluctuance Objective Last Vital Signs Temp 99.0 F 08/20/24 07:30 Pulse 66 08/20/24 07:30 Resp 16 08/20/24 07:30 BP 131/78 08/20/24 07:30 Pulse Ox 96 08/20/24 07:30 Laboratory Results - last 24 hr 08/19/24 08/19/24 08/20/24 09:00 14:15 06:16 WBC 10.63 RBC 3.92 L Hgb 11.2 L Hct 34.1 L MCV 87 MCH 28.6 MCHC 32.8 RDW 13.6 Plt Count 127 L MPV 10.5 Vancomycin Trough 5.7 L Random Vancomycin 17.2 Time Spent with Patient Time Spent with Patient: >50 minutes Time was spent: preparing to see the patient(eg.review tests), obtaining and/or reviewing separately otained hiistory, ordering medications,tests, procedures, referring, communicating with other health early breastfeeding care specialist, indepentently interpreting results, counseling the patient and care coordination
[2024-08-20] MEDS: Normal Saline 100 ML (10:46)
[2024-08-20 11:00] VITALS: BP 121/72; PULSE 64; RESP 16; TEMP 36.2; O2SAT 95
--- NOTE | 2024-08-20 15:24 | PHA.REVIEW2 ---
Pharmacy Admission Review Admission Clinical Review Admission Pharmacy Review: Severe sepsis (Acute) DVT prophylaxis (Acute) Cellulitis (Acute) codeine Allergy (Intermediate, Unverified 08/18/24 19:42) Hives sulfur dioxide Allergy (Intermediate, Unverified 08/18/24 19:42) Hives Resuscitation Status Full Code Height 6 ft Weight 120.429 kg Comments Comments/Follow Ups: Watch VS, K+, plts, labs, for culture results and for med changes (additional BM meds if needed) Pharmacy Admission Review Renal Dosing Renal Dosing: BUN 18 mg/dL (7-18) 08/19/24 07:44 Creatinine 1.3 mg/dL (0.70-1.30) 08/19/24 07:44 Medications needing adjustments: Reviewed (Crcl ~96.5 mL/min current meds are okay) Anticoagulation Anticoagulation: Hgb 11.2 g/dL (13.5-17.5) L 08/20/24 06:16 Hct 34.1 % (40.0-50.0) L 08/20/24 06:16 Plt Count 127 10^3/uL (130-400) L 08/20/24 06:16 Creatinine 1.3 mg/dL (0.70-1.30) 08/19/24 07:44 DVT Prophylaxis: Reviewed Medications: Enoxaparin Opiate Usage Evaluate Pain Scale/Pains Meds: Reviewed Scheduled Bowel Reg ordered if on Opiates?: No (has PRN meds ordered) Relevant Labs Relevant Labs: ESR 26 mm/hr (0-20) H 08/18/24 20:18 Sodium 139 mmol/L (136-145) 08/19/24 07:44 Potassium 3.1 mmol/L (3.5-5.1) L 08/19/24 07:44 Chloride 105 mmol/L (98-107) 08/19/24 07:44 C-Reactive Protein 16.70 mg/dL (<or=0.5) H 08/18/24 20:18 Electrolytes, C-Reactive P, ESR: Intervened (K+ was low yesterday, no replacement has been ordered, will mention to provider) DM Control DM Control: Glucose 111 mg/dL (74-106) H 08/19/24 07:44 DM Control: Reviewed (No DM noted medical history, no A1c on file.) Cardiac Review BP, HR, EF%: Reviewed (BP has been within normal limits most of admission so far, HR was elevated earlier this admission but has been within normal limits today) QTc Review QTc: N/A IV to PO Switch IV Medications: Reviewed Home Meds Home Med List reviewed: Reviewed Relevent Home Meds Not ordered & why?: umeclidinium-vilanterol (has tiotropium/olodaterol subbed for this while here) Current Meds Current Medication Order Review: Intervened (Discontinued duplicate med orders. ) Pharmacy Antibiotic Review Pharmacy Antibiotic Activity: C/S review and Reviewed, no change Comments: Blood cultures have no growth at 24 hours. Vanco and cefepime continue for sepsis/cellulitis (day 2). Vanco serum level 15.3 today, continuing current dose. New estimated AUC 547 (target AUC is 400-600 for sepsis). Comments Comments/Follow Ups: Watch VS, K+, plts, labs, for culture results and for med changes (additional BM meds if needed)
[2024-08-20 15:50] LABS: CREATININE 1.2 mg/dL (0.70-1.30); Estimated GFR 72.76 (mL/min/1.73m2)
[2024-08-20 15:54] VITALS: BP 119/73; PULSE 67; RESP 23; TEMP 36.7
[2024-08-20 15:56] LABS: Vancomycin, Trough 15.3 ug/mL (10.0-20.0)
[2024-08-20] MEDS: Ibuprofen 600 MG TAB PO (17:10)
[2024-08-20 19:13] VITALS: BP 126/74; PULSE 67; RESP 20; TEMP 36.6; O2SAT 98
[2024-08-20 22:44] VITALS: BP 129/80; PULSE 64; RESP 20; TEMP 37.1; O2SAT 97
[2024-08-21] MEDS: PIPERACILLIN/TAZO 4.5 GM in Normal Saline 100 ML IVPB ×2 (01:42→07:39)
[2024-08-21] MEDS: Normal Saline Flush 10 ML SYR IVP ×2 (01:42→08:50)
[2024-08-21 02:24] VITALS: BP 118/78; PULSE 64; RESP 20; TEMP 36.8; O2SAT 97
[2024-08-21] MEDS: VANCOMYCIN/WATER (PEG) 750 MG/150 ML BAG 150 MG IVPB ×2 (03:39→09:31)
[2024-08-21 07:19] LABS: HCT 32.6 % (40.0-50.0); HGB 11.2 g/dL (13.5-17.5); MCH 29.6 pg (27.0-33.0); MCHC 34.4 % (32.0-36.0); MCV 86 fL (80-95); MPV 11.5 fL (8.0-11.0); Platelet Count 137 10^3/uL (130-400); RBC 3.78 10^6/uL (4.36-5.78); RDW 13.7 % (11.8-14.1); RDW-SD 43.5 fL; WBC 7.49 10^3/uL (4.4-10.8)
[2024-08-21 07:22] VITALS: BP 133/76; PULSE 75; RESP 16; TEMP 37.2; O2SAT 96
[2024-08-21] MEDS: Ibuprofen 600 MG TAB PO (07:39)
[2024-08-21] MEDS: Pantoprazole 40 MG TABCR PO (07:39)
[2024-08-21] MEDS: Tiotropium/Olodaterol 10 PUFF INHALER 2 PUFF IH (08:14)
[2024-08-21] MEDS: Enoxaparin 40 MG/0.4 ML SYR SC (08:35)
[2024-08-21] MEDS: Metoprolol CR 100 MG TABCR PO (08:36)
[2024-08-21] MEDS: amLODIPine 10 MG TAB PO (08:36)
[2024-08-21] MEDS: Buprenorphine/Naloxone 2 mg/0.5 mg FILM 2 EACH SL (08:37)
[2024-08-21] MEDS: Lisinopril 10 MG TAB 30 MG PO (08:37)
[2024-08-21] MEDS: Buprenorphine/Naloxone 8 mg/2 mg FILM 2 EACH SL (08:37)
[2024-08-21] MEDS: Montelukast 10 MG TAB PO (08:37)
--- NOTE | 2024-08-21 10:03 | DSE_ITS ---
Date of service: 08/21/24 Time of Service: 10:03 DS: Diagnosis Discharge Diagnosis (1) Severe sepsis: Status: Acute (2) Cellulitis: Status: Acute (3) DVT prophylaxis: Status: Acute Discharge Plan Disposition Patient Disposition: [facility] Condition: Good Discharge Details Reason For Visit: Cellulitis, severe sepsis Admit Date/Time: 08/18/24 22:35 Admit Provider: Saroj Echols Attending Provider: Saroj Echols Primary Care Provider: Unknown,Unknown Hospital Course Hospital Course: Patient initially presented with signs and symptoms consistent with severe sepsis secondary to a left lower extremity cellulitis. Patient met severe sepsis criteria with initial temperature of 100.8 ?F, WBC of 17.9, heart rate of 114 bpm, and a lactic acid of 2.2. Patient was treated vancomycin and cefepime as he is incarcerated and is at high risk for MRSA. Patient continued to have fevers with last fever on the evening of 08/19/2024 but has since been afebrile. Given the patient has been afebrile and has had improvement of his cellulitis, it is determined that he is stable for discharge with a prescription being sent for recommendation of 3 times daily 400 mg clindamycin for an additional 12 days. Home Meds and New Rx's Prescriptions: New clindamycin HCl [Cleocin HCl] 150 mg capsule 450 mg PO TID 12 Days Qty: 108 0RF Continued umeclidinium-vilanterol [Anoro Ellipta] 62.5-25 mcg/actuation blister with device 1 inh inhalation DAILY pantoprazole 40 mg tablet,delayed release (DR/EC) 40 mg PO DAILY acetaminophen 325 mg capsule 650 mg PO BID PRN buprenorphine-naloxone 2-0.5 mg film 2 film sublingual DAILY Rx Instructions: place 1 strip/tab under (each) side of tongue buprenorphine-naloxone 8-2 mg film 2 film sublingual DAILY Rx Instructions: place 1 strip/tab under (each) side of tongue amlodipine 10 mg tablet 10 mg PO DAILY metoprolol succinate 100 mg tablet extended release 24 hr 100 mg PO DAILY montelukast 10 mg tablet 10 mg PO DAILY lisinopril 30 mg tablet 30 mg PO DAILY albuterol sulfate 90 mcg/actuation HFA aerosol inhaler 1 inh inhalation 6XD PRN Discharge Instructions Stand Alone Forms: Nursing Discharge Form Activity:: Activity as Tolerated Equipment/Supplies:: No Equipment Needed Diet:: As Tolerated Discharge Orders Discharge Orders: Discharge Order (Routine); Ordered 08/21/24 Ordered By: Kulwinder Pope Discharge Data Discharge Date/Time-TO BE ENTERED AT DEPARTURE: 08/21/24 11:26 DS: Summary Time Spent with Patient providing and/or coordinating discharge services: Greater than 30 minutes Status at Discharge Functional status at discharge: independent ambulation Overall status at discharge: patient is back to baseline Mental Status: mental status grossly normal Speech and Movement: speech and movement normal Mood: congruent mood Affect: normal affect Quality:SDOH Health Related Social Needs: Health related social needs details [facility] Health related social needs details: currently in correctional facility Exam Narrative Exam Narrative: Well-appearing gentleman sitting up at the edge of the bed in handcuffs as he is in state custody with presence of guard, no acute distress, ANO x 4, heart regular rhythm, lungs good auscultation bilaterally, abdomen soft, nontender, nondistended, area of demarcation with improved erythema as compared to previous day and remains without drainage, fluctuance Psych Mental Status: mental status grossly normal Speech and Movement: speech and movement normal Mood: congruent mood Affect: normal affect DS: Data Vitals/I&O Vitals and I&O: Vital Signs Temperature 99.0 F 08/21/24 07:22 Temperature Source Temporal Artery Scan 08/21/24 07:22 Pulse 75 08/21/24 07:22 Pulse Rhythm Regular 08/19/24 00:45 Respiratory Rate 16 08/21/24 07:22 Respiratory Effort Normal, Non-Labored 08/19/24 00:45 Respiratory Depth Normal 08/19/24 00:45 Respiratory Pattern Normal 08/19/24 00:45 Blood Pressure 133/76 08/21/24 07:22 Blood Pressure Mean 95 08/21/24 07:22 Blood Pressure Position Sitting 08/18/24 19:39 Pulse Oximetry 96 08/21/24 07:22 Oxygen Delivery Method Room Air 08/21/24 07:22 Oxygen Flow Rate 0 08/21/24 07:22 Pain Level 4 08/21/24 08:53 Comment RN notified 08/21/24 07:22 Intake & Output 08/20/24 08/21/24 08/21/24 17:59 05:59 17:59 Intake Total 2319.998 / 2319.998 1499.996 / 3819.994 540 / 540 Balance 2319.998 / 2319.998 1499.996 / 3819.994 540 / 540 Weight 265 lb 8 oz 262 lb 5.601 oz Intake: IV 1019.998 / 2199.505 8790.996 / 2519.994 100 / 100 Oral 1300 / 1300 440 / 440 Other: Urine Color Yellow Yellow Urine Appearance Clear Urine Odor None Normal Comment Pt voids ind. in toilet. Data Completed and Pending Labs on day of discharge: Labs from last 24 hours 08/21/24 08/20/24 06:03 15:30 WBC 7.49 RBC 3.78 L Hgb 11.2 L Hct 32.6 L MCV 86 MCH 29.6 MCHC 34.4 RDW 13.7 Plt Count 137 MPV 11.5 H Creatinine 1.2 Est GFR (CKD-EPI 2020) 72.76 Vancomycin Trough 15.3 Preliminary micro results at discharge 08/18/24 22:19 Blood Blood Culture - Preliminary NO GROWTH 48 HOURS 08/18/24 20:18 Blood Blood Culture - Preliminary NO GROWTH 48 HOURS PFSH All Active Problems (Updated 08/19/24 @ 00:24 by Saroj Echols) Severe sepsis (Acute) DVT prophylaxis (Acute) Cellulitis (Acute) Medical History (Updated 08/19/24 @ 00:24 by Saroj Echols) H/O pyloric stenosis GERD (gastroesophageal reflux disease) COPD (chronic obstructive pulmonary disease) Opioid use disorder, moderate, dependence on buprenorphine/naloxone Hypertension Surgical History (Updated 08/19/24 @ 00:18 by Saroj Echols) H/O pyloromyotomy as infant Family History (Updated 08/19/24 @ 00:19 by Saroj Echols) Father Heart disease Cancer Mother Cancer Lung Social History (Updated 08/19/24 @ 00:19 by Saroj Echols) Smoking/Tobacco Use Status: Former Tobacco Use Quit Date: 11/15/23 Tobacco: How many years used: 30 Smoking risk assessment performed?: Yes Alcohol Intake: former Drug use: Never Substance use type: does not use Details: no h/o IVDU Housing: other Additional Social history: currently encarcerated Time Spent with Patient Time Spent with Patient: <45 minutes Time was spent: preparing to see the patient(eg.review tests), obtaining and/or reviewing separately otained hiistory, ordering medications,tests, procedures, referring, communicating with other health career resource specialist, indepentently int erpreting results, counseling the patient and care coordination
--- NOTE | 2024-08-21 10:49 | CMDISCH_ITS ---
Date of service: 08/21/24 Time of Service: 10:49 LACE Index Scoring Tool Questions: Length of Stay (in days): 3 Was the patient admitted via the E.D.?: Yes Comorbidities: Chronic Pulmonary Disease E.D. Visits: 2 Answers: Total Score: 10 Risk of Readmission: High Risk Care Management Discharge Plan Reason for Hospitalization: cellulitis Discharge Plan: Saroj will be discharged back to [facility] accompanied by corrections officers. He will follow up with the facility providers and plan of care. Saroj has been prescribed Clindamycin 450 mg PO tid for an additional 12 days to complete treatment for the cellulitis. Patient/Family Education Needs: Review of discharge instructions, limitations, follow up plan and discuss Ask Me Three SDOH Health Related Social Needs: Health related social needs details currently in [facility] Health related social needs details: currently in [facility] facility
== END 2024-08-21 11:26 | DRG 872 ==
LOC: ER 23:33 → MS 08-19 00:47
PROVIDERS: Admitting Provider Family Medicine; Emergency Provider Emergency Medicine; Responsible Provider Family Medicine; Visit Provider Family Medicine
DX: A41.9 Sepsis, unspecified organism (principal); F11.20 Opioid dependence, uncomplicated; L03.116 Cellulitis of left lower limb; D68.59 Other primary thrombophilia; R65.20 Severe sepsis without septic shock; I10 Essential (primary) hypertension; K21.9 Gastro-esophageal reflux disease without esophagitis; J44.9 Chronic obstructive pulmonary disease, unspecified; Z86.718 Personal history of other venous thrombosis and embolism; Z87.891 Personal history of nicotine dependence; Z79.899 Other long term (current) drug therapy; Z88.2 Allergy status to sulfonamides
CPT/HCPCS: 00123; 36415; 80048; 80053; 82550; 85027; 85652; 87040; 87389; 87641; 94640; 96365; 96366; 96367; 96375; 99238; 99239; 99285; J1650; 73701; 80202; 82565; 83036; 83605; 83735; 85025; 86140; 93970; 93971; 94664; 99222; 99223; 99232; 99233; J0131; J0692; J1938; J2270; J2405; J2543; J3370; J3372; J3373; J3480; J3490

== ENCOUNTER 2024-08-22 11:11 | Inpatient (IN) | payer MEDICAID, SELFPAY ==
[2024-08-22] VITALS (20 sets, daily range): BP systolic 122–152; BP diastolic 65–117; PULSE 71–99; RESP 12–22; TEMP 36.1–39.9; O2SAT 96–100
[2024-08-22 12:02] LABS: Lactate 1.1 mmol/L (<or=2.0)
[2024-08-22 12:03] LABS: Abs Immature Grans 0.13 10^3/uL (0.0-0.06); Absolute Basophil Count 0.04 10^3/uL (0.0-0.2); Absolute Eosinophil Count 0.12 10^3/uL (0.0-0.7); Absolute Lymphocyte Count 1.23 10^3/uL (1.2-3.4); Absolute Neutrophil Count 6.92 10^3/uL (1.2-6.7); Basophils % 0.4 %; Eosinophils % 1.3 %; HCT 34.5 % (40.0-50.0); HGB 11.6 g/dL (13.5-17.5); Immature Grans % 1.4 %; Lymphocytes % 13.3 %; MCH 29.4 pg (27.0-33.0); MCHC 33.6 % (32.0-36.0); MCV 87 fL (80-95); MPV 10.3 fL (8.0-11.0); Monocytes % 8.7 %; Neutrophils % 74.9 %; Platelet Count 171 10^3/uL (130-400); RBC 3.95 10^6/uL (4.36-5.78); RDW-SD 45.1 fL; WBC 9.24 10^3/uL (4.4-10.8)
[2024-08-22 12:04] LABS: ESR 33 mm/hr (0-20)
[2024-08-22 12:21] LABS: ALT 24 U/L (16-63); AST 27 U/L (15-37); Albumin 2.6 g/dL (3.4-5.0); Alkaline Phosphatase 94 U/L (46-116); Anion Gap 8.2 mmol/L (3-11); BUN 12 mg/dL (7-18); Bilirubin, Total 0.6 mg/dL (0.2-1.0); C-Reactive Protein 16.35 mg/dL (<or=0.5); CO2 30.8 mmol/L (21.0-32.0); CREATININE 1.2 mg/dL (0.70-1.30); Calcium 8.9 mg/dL (8.5-10.1); Chloride 102 mmol/L (98-107); Estimated GFR 72.76 (mL/min/1.73m2); Glucose 116 mg/dL (74-106); Potassium 3.1 mmol/L (3.5-5.1); Sodium 141 mmol/L (136-145); Total Protein 7.4 g/dL (6.4-8.2)
--- NOTE | 2024-08-22 12:37 | W.PM.HP.N ---
Date of service: 08/22/24 Time of Service: 12:37 Assessment and Plan Assessment and plan (1) Cellulitis: Status: Resolved Assessment and plan: -Rapid worsening of cellulitis within 24 hours of discharge - Patient had been on Vanco and Zosyn prior to discharge and was reportedly taking the p.o. clindamycin that was prescribed - Will go back to vancomycin and Zosyn - Follow-up blood culture results - On this admission though, patient does not meet criteria for sepsis as he does not have a leukocytosis, tachycardia or tachypnea, though did have a reported fever of 103 ?F at the detention prior to presentation. - During this hospitalization though, it is recommended that once it is determined patient is ready for p.o. antibiotic regimen that he be observed for an additional 24 hours prior to discharge (2) Hypertension: Assessment and plan: -Continue outpatient therapy (3) Opioid use disorder, moderate, dependence: Assessment and plan: -Continue suboxone (4) GERD (gastroesophageal reflux disease): Assessment and plan: -continue PPI (5) COPD (chronic obstructive pulmonary disease): Assessment and plan: -without acute exacerbation -continue LAMA and albuterol prn (6) DVT prophylaxis: Status: Resolved Assessment and plan: enoxaparin History of Present Illness History of Present Illness Chief Complaint: worsening cellulitis Narrative: 54-year-old incarcerated gentleman with a past medical history of hypertension, opiate use disorder on Suboxone, hypertension, GERD, COPD presents back to the emergency department after being discharged 08/21/2024 with worsening left lower extremity cellulitis. During previous hospitalization patient was treated for severe sepsis secondary to cellulitis. He was febrile, tachycardic had leukocytosis all of which significantly improved while on vancomycin and cefepime. Patient has documented allergy to sulfa medications and was discharged on p.o. clindamycin. However, after only missing about 1 dose of what would have been IV Vanco and cefepime upon returning to detention, he reported worsening of redness swelling and pain of his left lower extremity including streaking up his left thigh. He also said he had fever prior to arrival for which he was given Tylenol. In the emergency department the patient was noted as having normal vital signs, normal CBC and CMP but did continue to have elevated CRP of 16 which is similar to previous presentation. He was also noted as having worsening redness and swelling of his left lower extremity with streaks up his leg. Emergency room provider also reached out to detention in which the patient is incarcerated and stated that they had been giving his 450 mg p.o. clindamycin as prescribed and they believe the patient was taking the medication as recommended. At which time emergency room PA initiated vancomycin and cefepime paged hospitalist for admission for patient with failed outpatient p.o. therapy for cellulitis. Review of Systems All systems reviewed & are unremarkable except as noted in HPI and below PFSH Medical History H/O pyloric stenosis GERD (gastroesophageal reflux disease) COPD (chronic obstructive pulmonary disease) Opioid use disorder, moderate, dependence on buprenorphine/naloxone Hypertension Surgical History H/O pyloromyotomy as infant Family History Father Heart disease Cancer Mother Cancer Lung Social History Smoking/Tobacco Use Status: Former Tobacco Use Quit Date: 11/15/23 Tobacco: How many years used: 30 Smoking risk assessment performed?: Yes Alcohol Intake: former Drug use: Never Substance use type: does not use Details: no h/o IVDU Housing: other Additional Social history: currently encarcerated Meds Allergies and Home Medications Allergies Allergy/AdvReac Type Severity Reaction Status Date / Time codeine Allergy Intermediate Hives Verified 08/22/24 13:00 sulfur dioxide Allergy Intermediate Hives Verified 08/22/24 13:00 Home Medications ?Medication ?Instructions ?Recorded ?Confirmed ?Type acetaminophen 325 mg capsule 650 mg PO BID PRN 07/02/24 08/22/24 History albuterol sulfate 90 mcg/actuation 1 inh inhalation 6XD PRN 07/02/24 08/22/24 History aerosol inhaler amlodipine 10 mg tablet 10 mg PO DAILY 07/02/24 08/22/24 History buprenorphine 2 mg-naloxone 0.5 mg 2 film sublingual DAILY 07/02/24 08/22/24 History sublingual film buprenorphine 8 mg-naloxone 2 mg 2 film sublingual DAILY 07/02/24 08/22/24 History sublingual film lisinopril 30 mg tablet 30 mg PO DAILY 07/02/24 08/22/24 History metoprolol succinate 100 mg 100 mg PO DAILY 07/02/24 08/22/24 History tablet,extended release 24 hr montelukast 10 mg tablet 10 mg PO DAILY 07/02/24 08/22/24 History pantoprazole 40 mg tablet,delayed 40 mg PO DAILY 07/02/24 08/22/24 History release umeclidinium 62.5 mcg-vilanterol 1 inh inhalation DAILY 07/02/24 08/22/24 History 25 mcg/actuation powdr for inhalation (Anoro Ellipta) clindamycin HCl 150 mg capsule 450 mg (3 x 150 mg) PO TID 12 days 08/21/24 08/22/24 Rx (Cleocin HCl) #108 caps dabigatran etexilate 150 mg 150 mg PO BID 08/22/24 08/22/24 History capsule (Pradaxa) emollient combination no.119 1 applic topical BID 08/22/24 08/22/24 History (Eucerin Advanced Repair topical cream) ondansetron 4 mg disintegrating 4 mg PO BID PRN 08/22/24 08/22/24 History tablet Exam Narrative Exam Narrative: Well-appearing gentleman laying in bed in no acute distress, ANO x 4, heart regular rhythm, lungs good auscultation bilaterally, abdomen soft, nontender, nondistended, left lower extremity with significantly worsened erythema extending past previously drawn borders and now tracking up into the upper inner thigh but without any localized palpable areas of fluctuance Results Labs 08/22/24 11:51 08/22/24 11:51 Labs: Laboratory Results - last 24 hr 08/22/24 08/22/24 11:49 11:51 WBC 9.24 RBC 3.95 L Hgb 11.6 L Hct 34.5 L MCV 87 MCH 29.4 MCHC 33.6 RDW 14.0 Plt Count 171 MPV 10.3 Immature Gran % 1.4 Neutrophils % 74.9 Lymphocytes % 13.3 Monocytes % 8.7 Eosinophils % 1.3 Basophils % 0.4 Nucleated RBC % 0.0 Absolute Neutrophils 6.92 H Absolute Lymphocytes 1.23 Absolute Monocytes 0.80 Absolute Eosinophils 0.12 Absolute Basophils 0.04 ESR 33 H VBG Lactate 1.1 Sodium 141 Potassium 3.1 L Chloride 102 Carbon Dioxide 30.8 Anion Gap 8.2 BUN 12 Creatinine 1.2 Est GFR (CKD-EPI 2020) 72.76 Glucose 116 H Calcium 8.9 Total Bilirubin 0.6 AST 27 ALT 24 Alkaline Phosphatase 94 C-Reactive Protein 16.35 H Total Protein 7.4 Albumin 2.6 L Last Vital Signs Temp 98.2 F 08/22/24 11:14 Pulse 85 08/22/24 12:31 Resp 22 08/22/24 11:14 BP 142/87 H 08/22/24 12:31 Pulse Ox 97 08/22/24 12:31 Time Spent Time spent with Patient: >75 minutes Time was spent: preparing to see the patient(eg.review tests), obtaining and/or reviewing separately otained hiistory, ordering medications,tests, procedures, referring, communicating with other health manager care, indepentently interpreting results, counseling the patient and care coordination
--- NOTE | 2024-08-22 12:39 | ED.GENADUL_ITS ---
Discharge Plan Disposition Patient Disposition: Admit to [facility] Condition: Serious Discharge Details Admit Date/Time: 08/22/24 12:37 Admit Provider: Kulwinder Pope Attending Provider: Kulwinder Pope Primary Care Provider: Unknown,Unknown ED Provider: Zbigniew Perdomo Discharge Data Discharge Date/Time-TO BE ENTERED AT DEPARTURE: 08/22/24 13:16 HPI General Mode of arrival: ambulatory . Date/Time Provider Initiated Documentation: 08/22/24 11:27 . Limitations to Documentation: no limitations . Information obtained by: patient and police . History of Present Illness 54 year old M presents to the emergency department with the chief complaint of Left leg cellulitis, described as moderate, with intensity rated at 7. Quality is described as aching, and is localized to the left and lower extremity. Patient reports no radiation. Patient started experiencing this day(s) (5) and it has been other (Worsening). No relieving factors improve symptom(s), No exacerbating factors reported . Patient notes fever/chills. Patient did receive the following treatments prior to arrival, other (Oral clindamycin) Related Data Home Medications ?Medication ?Instructions ?Recorded ?Confirmed acetaminophen 325 mg capsule 650 mg PO BID PRN 5 08/22/24 albuterol sulfate 90 mcg/actuation 1 inh inhalation 6X D PRN 07/02/24 08/22/24 aerosol inhaler amlodipine 10 mg tablet 10 mg PO DAILY 07/02/2408/10 buprenorphine 2 mg-naloxone 0.5 mg 2 film sublingual D AILY 07/02/24 08/22/24 sublingual film buprenorphine 8 mg-naloxone 2 mg 2 film sublingual THAI LY 07/02/24 08/22/24 sublingual film lisinopril 30 mg tablet 30 mg PO DAILY 07/02/2408/10 metoprolol succinate 100 mg 100 mg PO DAILY 07/02/24 0 08/22/24 tablet,extended release 24 hr montelukast 10 mg tablet 10 mg PO DAILY 07/02/2408/10 pantoprazole 40 mg tablet,delayed 40 mg PO DAILY 07/0208/22/24 release umeclidinium 62.5 mcg-vilanterol 1 inh inhalation BIBIANA Y 07/02/24 08/22/24 25 mcg/actuation powdr for inhalation (Anoro Ellipta) clindamycin HCl 150 mg capsule 450 mg (3 x 150 mg) PO TID 12 days 08/21/24 08/22/24 (Cleocin HCl) #108 caps dabigatran etexilate 150 mg 150 mg PO BID 08/22/24 capsule (Pradaxa) emollient combination no.119 1 applic topical BID 08/1008/22/24 (Eucerin Advanced Repair topical cream) ondansetron 4 mg disintegrating 4 mg PO BID PRN 08/22/24 tablet Previous Rx's ?Medication ?Instructions ?Recorded clindamycin HCl 150 mg capsule 450 mg (3 x 150 mg) PO TID 12 days 08/21/24 (Cleocin HCl) #108 caps Allergies Allergy/AdvReac Type Severity Reaction Status Date / Time codeine Allergy Intermediate Hives Verified 08/22/24 13:00 sulfur dioxide Allergy Intermediate Hives Verified 08/22/24 13:00 General Stated Complaint: Cellulitis CARLOS A: 3 Review of Systems Constitutional Constitutional: Reports chills, Reports fatigue, Reports fever(s) and Denies weakness Cardiovascular Cardiovascular: Denies chest pain and Denies dyspnea Respiratory Respiratory: Denies dyspnea Gastrointestinal Gastrointestinal: Denies abdominal pain, Reports nausea and Denies vomiting Musculoskeletal Musculoskeletal: Denies back pain, Denies numbness and Denies tingling Integumentary/Breasts Skin/Breast: Reports rash Neurologic Neurologic: Denies numbness, Denies tingling and Denies weakness Endocrine Endocrine: Reports fatigue Hematologic/Lymphatic Hematologic/Lymphatic: Denies easy bleeding Exam Const General: cooperative, healthy appearing and no acute distress Orientation: alert, awake and oriented x3 HENMT Head: normal to inspection, normocephalic and atraumatic Face and sinus: normal facial exam Mouth: moist mucous membranes Eyes General: appearance normal, both eyes and all related structures Conjunctivae: conjunctivae normal Neck Neck: normal visual inspection, full ROM, no meningeal signs, trachea midline and supple Resp Effort & Inspection: normal respiratory effort and able to speak in complete sentences Auscultation: clear to auscultation bilaterally Cardio Rate: regular rate Rhythm: regular rhythm GI Palpation: soft and nontender Back/Spine/Pelvis Back: no CVA tenderness and No back tenderness Skin Rashes: rashes noted Neuro General: patient alert, patient awake, moves all extremities and no focal motor deficits Cognition: normal cognition Speech: speech normal Gait: normal gait Motor: muscle tone normal throughout Sensory Exam: no sensory deficits noted Extrem General: full ROM and capillary refill normal Other: There is circumferential extensive erythema, warmth, tenderness about the left leg, which does extend to the dorsum of the foot. There are multiple prior fading boundary markers and the erythema is either fat or extending past all of them. Now there are 2 additional areas of erythema up above the knee along the medial leg extending almost to the groin. There does not appear to be any obvious joint involvement or septic joint. No crepitus, induration, fluctuance. No drainage. Psych Appearance: grossly normal Mental Status: mental status grossly normal Course Vital Signs Vital signs: Vital Signs Temperature 36.8 C 08/22/24 11:14 Pulse 95 H 08/22/24 11:14 Respiratory Rate 22 08/22/24 11:14 Blood Pressure 152/91 H 08/22/24 11:14 Pulse Oximetry 98 08/22/24 11:14 Temperature 36.8 C 08/22/24 11:14 Temperature Source Oral 08/22/24 11:14 Pulse 85 08/22/24 12:31 Respiratory Rate 22 08/22/24 11:14 Blood Pressure 142/87 H 08/22/24 12:31 Blood Pressure Mean 104 08/22/24 12:31 Blood Pressure Position Sitting 08/22/24 11:14 Pulse Oximetry 97 08/22/24 12:31 Oxygen Delivery Method Room Air 08/22/24 11:14 Oxygen Flow Rate 0 08/22/24 11:14 Pain Level 4 08/22/24 11:14 Lab/Test Results Lab/Test Results: 08/22/24 12:20 Blood Blood Culture - Pending 08/22/24 11:51 Blood Blood Culture - Pending Laboratory Tests Range/Units 08/22/24 08/22/24 11:49 11:51 WBC (4.4-10.8) 10^3/uL 9.24 RBC (4.36-5.78) 10^6/uL 3.95 L Hgb (13.5-17.5) g/dL 11.6 L Hct (40.0-50.0) % 34.5 L MCV (80-95) fL 87 MCH (27.0-33.0) pg 29.4 MCHC (32.0-36.0) % 33.6 RDW (11.8-14.1) % 14.0 Plt Count (130-400) 10^3/uL 171 MPV (8.0-11.0) fL 10.3 Immature Gran % % 1.4 Neutrophils % % 74.9 Lymphocytes % % 13.3 Monocytes % % 8.7 Eosinophils % % 1.3 Basophils % % 0.4 Nucleated RBC % (0.0-0.3) % 0.0 Absolute Neutrophils (1.2-6.7) 10^3/uL 6.92 H Absolute Lymphocytes (1.2-3.4) 10^3/uL 1.23 Absolute Monocytes (0.1-0.8) 10^3/uL 0.80 Absolute Eosinophils (0.0-0.7) 10^3/uL 0.12 Absolute Basophils (0.0-0.2) 10^3/uL 0.04 ESR (0-20) mm/hr 33 H VBG Lactate (<or=2.0) mmol/L 1.1 Sodium (136-145) mmol/L 141 Potassium (3.5-5.1) mmol/L 3.1 L Chloride (98-107) mmol/L 102 Carbon Dioxide (21.0-32.0) mmol/L 30.8 Anion Gap (3-11) mmol/L 8.2 BUN (7-18) mg/dL 12 Creatinine (0.70-1.30) mg/dL 1.2 Est GFR (CKD-EPI 2020) (mL/min/1.73m2) 72.76 Glucose (74-106) mg/dL 116 H Calcium (8.5-10.1) mg/dL 8.9 Total Bilirubin (0.2-1.0) mg/dL 0.6 AST (15-37) U/L 27 ALT (16-63) U/L 24 Alkaline Phosphatase (46-116) U/L 94 C-Reactive Protein (<or=0.5) mg/dL 16.35 H Total Protein (6.4-8.2) g/dL 7.4 Albumin (3.4-5.0) g/dL 2.6 L Medical Decision Making 54-year-old gentleman who resides at the local senior care was admitted on 08/18/2024 for left lower leg cellulitis treated with IV Vanco and pip/tazo subsequently discharged yesterday on oral clindamycin. Patient does states that he has been compliant with the clindamycin since discharge. He reports rapid worsening of his symptoms overnight including a fever of 103 this morning, subjective chills. The entire lower leg is now more swollen and the redness is now tracking toward his groin. He did take Tylenol this morning. Upon arrival he is uncomfortable, pulse in the 90s, he is afebrile. Plan to obtain IV access, obtain routine screening laboratory values including potential markers and blood cultures. I will involve our hospitalist team, Dr. Pope, early on as he personally evaluated and discharged the patient yesterday. Given likely readmission, I would like to discuss antibiotic choice with him. Laboratory values reveal a white blood cell count of 9.25, although normal is trending up from yesterday. ESR of 33, lactate of 1.1, CRP of 16.35. Both CRP and ESR remain elevated, white blood cell count trending upward. In the setting of what appears to be progressive worsening of his cellulitis in less than 24 hours, I do believe additional admission and antibiotics is reasonable. Case was discussed with Dr. Pope who was agreeable to admission. Recommended IV vancomycin and cefepime. He will write admission orders. Will initiate antibiotic therapy here in the ER. Lab Data Lab results reviewed: Yes I reviewed the patient's lab results. Labs: 08/22/24 12:20 Blood Blood Culture - Pending 08/22/24 11:51 Blood Blood Culture - Pending Laboratory Tests Range/Units 08/22/24 08/22/24 11:49 11:51 WBC (4.4-10.8) 10^3/uL 9.24 RBC (4.36-5.78) 10^6/uL 3.95 L Hgb (13.5-17.5) g/dL 11.6 L Hct (40.0-50.0) % 34.5 L MCV (80-95) fL 87 MCH (27.0-33.0) pg 29.4 MCHC (32.0-36.0) % 33.6 RDW (11.8-14.1) % 14.0 Plt Count (130-400) 10^3/uL 171 MPV (8.0-11.0) fL 10.3 Immature Gran % % 1.4 Neutrophils % % 74.9 Lymphocytes % % 13.3 Monocytes % % 8.7 Eosinophils % % 1.3 Basophils % % 0.4 Nucleated RBC % (0.0-0.3) % 0.0 Absolute Neutrophils (1.2-6.7) 10^3/uL 6.92 H Absolute Lymphocytes (1.2-3.4) 10^3/uL 1.23 Absolute Monocytes (0.1-0.8) 10^3/uL 0.80 Absolute Eosinophils (0.0-0.7) 10^3/uL 0.12 Absolute Basophils (0.0-0.2) 10^3/uL 0.04 ESR (0-20) mm/hr 33 H VBG Lactate (<or=2.0) mmol/L 1.1 Sodium (136-145) mmol/L 141 Potassium (3.5-5.1) mmol/L 3.1 L Chloride (98-107) mmol/L 102 Carbon Dioxide (21.0-32.0) mmol/L 30.8 Anion Gap (3-11) mmol/L 8.2 BUN (7-18) mg/dL 12 Creatinine (0.70-1.30) mg/dL 1.2 Est GFR (CKD-EPI 2020) (mL/min/1.73m2) 72.76 Glucose (74-106) mg/dL 116 H Calcium (8.5-10.1) mg/dL 8.9 Total Bilirubin (0.2-1.0) mg/dL 0.6 AST (15-37) U/L 27 ALT (16-63) U/L 24 Alkaline Phosphatase (46-116) U/L 94 C-Reactive Protein (<or=0.5) mg/dL 16.35 H Total Protein (6.4-8.2) g/dL 7.4 Albumin (3.4-5.0) g/dL 2.6 L Quality:SDOH Health Related Social Needs: Health related social needs risk of homeless material hardship Health related social needs details pt resides in senior care [facility] Medical History H/O pyloric stenosis GERD (gastroesophageal reflux disease) COPD (chronic obstructive pulmonary disease) Opioid use disorder, moderate, dependence on buprenorphine/naloxone Hypertension Surgical History H/O pyloromyotomy as infant Family History Father Heart disease Cancer Mother Cancer Lung Social History Smoking/Tobacco Use Status: Former Tobacco Use Quit Date: 11/15/23 Tobacco: How many years used: 30 Smoking risk assessment performed?: Yes Alcohol Intake: former Drug use: Never Substance use type: does not use Details: no h/o IVDU Housing: other Additional Social history: currently encarcerated
[2024-08-22] MEDS: CEFEPIME 2 GM in Normal Saline 100 ML IVPB ×2 (12:44→20:07)
--- NOTE | 2024-08-22 13:00 | W.PC.ACHO ---
Registration Status: REG ER Primary Language: Preferred Language: Amharic ED Information & Data Chief Complaint Cellulitis 08/22/24 12:39 Triage Note Pt reports left leg 08/22/24 11:14 cellulitis. Has been receiving antibx, but no improvement. Pt reports he has increased redness, swelling and pain. Reports fever and sweats, reports had a fever this morning. Received Tylenol around 0900 . Pt currently afebrile. Medical / Surgical History (Last Updated 08/19/24 @ 00:18 by Saroj Echols) H/O pyloric stenosis GERD (gastroesophageal reflux disease) COPD (chronic obstructive pulmonary disease) Opioid use disorder, moderate, dependence Hypertension (Last Updated 08/19/24 @ 00:18 by Saroj Echols) H/O pyloromyotomy Most Recent Vital Signs Temperature 36.8 C 08/22/24 11:14 Temperature Source Oral 08/22/24 11:14 Pulse 86 08/22/24 12:50 Respiratory Rate 22 08/22/24 11:14 Blood Pressure 142/87 H 08/22/24 12:31 Blood Pressure Mean 104 08/22/24 12:31 Blood Pressure Position Sitting 08/22/24 11:14 Pulse Oximetry 99 08/22/24 12:50 Oxygen Delivery Method Room Air 08/22/24 11:14 Oxygen Flow Rate 0 08/22/24 11:14 Pain Level 4 08/22/24 11:14 Allergies codeine Allergy (Intermediate, Verified 08/22/24 11:59) Hives sulfur dioxide Allergy (Intermediate, Verified 08/22/24 11:59) Hives Active Medications Generic Name Dose Route Start Last Admin Trade Name Freq PRN Reason Stop Dose Admin Cefepime HCl 2 gm/ Sodium 100 mls @ 200 mls/hr 08/22/24 12:35 08/22/24 12:44 Chloride IVPB 08/22/24 13:04 200 mls/hr NOW ONE Administration IV IV Catheter Type [Right Upper Saline Lock arm] IV Catheter Type [Left Upper Saline Lock arm] IV Catheter Gauge [Right Upper 20 arm] IV Catheter Gauge [Left Upper 20 arm] Diagnostics 08/22/24 08/22/24 Range/Units 11:51 11:49 WBC 9.24 (4.4-10.8) 10^3/uL RBC 3.95 L (4.36-5.78) 10^6/uL Hgb 11.6 L (13.5-17.5) g/dL Hct 34.5 L (40.0-50.0) % MCV 87 (80-95) fL MCH 29.4 (27.0-33.0) pg MCHC 33.6 (32.0-36.0) % RDW 14.0 (11.8-14.1) % Plt Count 171 (130-400) 10^3/uL MPV 10.3 (8.0-11.0) fL Immature Gran % 1.4 % Neutrophils % 74.9 % Lymphocytes % 13.3 % Monocytes % 8.7 % Eosinophils % 1.3 % Basophils % 0.4 % Nucleated RBC % 0.0 (0.0-0.3) % Absolute Neutrophils 6.92 H (1.2-6.7) 10^3/uL Absolute Lymphocytes 1.23 (1.2-3.4) 10^3/uL Absolute Monocytes 0.80 (0.1-0.8) 10^3/uL Absolute Eosinophils 0.12 (0.0-0.7) 10^3/uL Absolute Basophils 0.04 (0.0-0.2) 10^3/uL ESR 33 H (0-20) mm/hr VBG Lactate 1.1 (<or=2.0) mmol/L Sodium 141 (136-145) mmol/L Potassium 3.1 L (3.5-5.1) mmol/L Chloride 102 (98-107) mmol/L Carbon Dioxide 30.8 (21.0-32.0) mmol/L Anion Gap 8.2 (3-11) mmol/L BUN 12 (7-18) mg/dL Creatinine 1.2 (0.70-1.30) mg/dL Est GFR (CKD-EPI 2020) 72.76 (mL/min/1.73m2) Glucose 116 H (74-106) mg/dL Calcium 8.9 (8.5-10.1) mg/dL Total Bilirubin 0.6 (0.2-1.0) mg/dL AST 27 (15-37) U/L ALT 24 (16-63) U/L Alkaline Phosphatase 94 (46-116) U/L C-Reactive Protein 16.35 H (<or=0.5) mg/dL Total Protein 7.4 (6.4-8.2) g/dL Albumin 2.6 L (3.4-5.0) g/dL 08/22/24 12:20 Blood Culture - Pending Blood 08/22/24 11:51 Blood Culture - Pending Blood Intake and Output - 24 Hour Total 08/22/24 11:11 thru 08/22/24 12:45 Intake Total 20 Balance 20 Weight 114.759 kg Intake: IV 20 Falls Risk Assessment History of Falls No History 08/22/24 11:34 Contributing Factors Impairments 08/22/24 11:34 Ambulatory Aids Independent 08/22/24 11:34 Tubes/Lines None 08/22/24 11:34 Gait Evaluation No gait disturbance 08/22/24 11:34 Cognition No cognitive impairment 08/22/24 11:34 Fall Total Score 3 08/22/24 11:34 Level of Risk Standard/Low Risk 08/22/24 11:34 v v v v v v v v v Sending and/or Receiving Nurses: Please use comment section below to note any information pertinent to the patient hand-off not included above. Information / Comments: Report received from:gabino
--- NOTE | 2024-08-22 14:02 | INITIAL_ITS ---
Date of service: 08/22/24 Time of Service: 14:02 Care Management Initial Assmt Initial Assessment Reason for Hospitalization: Cellulitis Functional Status/Living Situation Patient Presentation: Saroj was readmitted to [facility] after presenting to the ED for worsening cellulitis. He was discharged 08/21/24, back to [facility] and was prescribed Clindamycin 450 mg PO tid for an additional 12 days to complete treatment for the cellulitis. He will likely return back to [facility], once medically cleared. CM will continue to follow. Town of Residence: [place] Resides with: Other ([facility] ) Employment Status: Unemployed Instrumental Activities of Daily Living (ADLs): Independent Medications Medication Management: No Issues/Barriers identified Advance Directives Advance Directives: Do you have an Advance Directive: N , 08:56 AD On File at [facility]: N 11/03/15, 09:34 Date Asked 08/18/24 08/18/24, 19:10 AD Date Reviewed COLST On File at [facility] COLST Date Scanned Code Status Resuscitation Status Full Code Portal Pt does not currently have a portal and education provided: Yes Insurance Coverage/Financial Issues Insurance: [facility] Facility Care Team Visit Care Team Role Provider Type Unknown Unknown Primary Care Provider STAFF PHYSICIAN YANNI Peña Emergency Provider PHYSICIANS CAPTURE MANAGER Kulwinder Pope MD Admit Provider [facility] STAFF PHYSICIAN Attending Provider Discharge Potential Discharge Needs: PCP F/U Appt Anticipated Barriers to Discharge: Medical Status Patient/Family Education Needs: Review discharge instructions, discuss Ask Me Three Transportation: Other (DOC) Plan: Anticipate, Saroj will return to the [facility] when medically stable. He will follow up with facility providers and plan of care and transport with corrections staff. CM will continue to follow. Social Determinants of Health Screening Social Determinants of health last assessed in clinic: 08/22/24 Will the Patient Participate in the Screening?: Yes Do you worry about having a steady place to live?: yes What is your living situation today?: I have housing today, but am worried about losing it Problems where you live: no known problems In the past 12 months, have you had to go without electric, gas, oil or water in your home?: choose not to answer 1. Within the past 12 months, we worried whether our food would run out before we got money to buy more.: Never true 2. Within the past 12 months, the food we bought just didn't last and we didn't have money to get more.: Never true Has lack of transportation kept you from medical appointments or from doing things needed for daily living?: choose not to answer Has anyone in your life made you feel unsafe or unsupported?: choose not to answer How hard is it for you to pay for the very basics like food, housing, medical care, and heating? Would you say it is:: Not hard at all Do you want help finding or keeping work or a job?: I do not need or want help If for any reason you need help with day-to-day activities such as bathing, preparing meals, shopping, managing finances, etc., do you get the help you need?: I don?t need any help How often do you feel lonely or isolated from those around you?: Never Do you speak a language other than Afghan at home?: No Comments: N/A-pt resides in group home Health Related Social Needs Health related social needs: housing instability, housed, with risk of homelessness (Z59.811) and material hardship(utilities) (Z59.12) Health related social needs details: pt resides in group home [facility] Medical History (Updated 08/22/24 @ 00:02 by FERNANDO SOLIS) H/O pyloric stenosis GERD (gastroesophageal reflux disease) COPD (chronic obstructive pulmonary disease) Opioid use disorder, moderate, dependence on buprenorphine/naloxone Hypertension Surgical History (Updated 08/19/24 @ 00:18 by Saroj Echols) H/O pyloromyotomy as Family History (Updated 08/19/24 @ 00:19 by Saroj Echols) Father Heart disease Cancer Mother Cancer Lung Social History (Updated 08/19/24 @ 00:19 by Saroj Echols) Smoking/Tobacco Use Status: Former Tobacco Use Quit Date: 11/15/23 Tobacco: How many years used: 30 Smoking risk assessment performed?: Yes Alcohol Intake: former Drug use: Never Substance use type: does not use Details: no h/o IVDU Housing: other Additional Social history: currently encarcerated Readmission Within the Past 30 Days Yes or No: Yes Date of First Admission Date of 1st Admission: 08/18/24 Date of this Admission Date of Admission: 08/22/24 This admission was: Through ED Office Visit Since 1st Admission Have you seen your PCP in the office since discharge?: Yes Date of PCP Appointment: Today Describe barriers for scheduling or getting an appointment: Facility provider Speicalist Appointments Have you seen any other specialist since your 1st Admission?: No I. Interview patient and/or Family Difficulty reaching your doctor or getting an office appt?: No Have you had trouble purchasing/ or taking medication?: No Describe barriers fpr purchasing or taking medication: Correctional facility How do you take your medications and set up your pills?: Daily Have you had trouble with getting meals at home?: No Were services received that you thought were set up on disch: Yes Did you call your physician beore you came to the ED?: Yes (Correctional Facility ) If the patient had a VNA ordered Did the patient have a VNA order?: No If the patient had home care service Call them to discuss the patient's admission: Correctional faciltiy ED visits How many ED visits in the past 12 months: 3
[2024-08-22] MEDS: VANCOMYCIN/WATER (PEG) 2 GM/400 ML BAG IVPB (14:42)
[2024-08-22] MEDS: Acetaminophen 325 MG TAB PO ×2 (15:31→20:19)
--- NOTE | 2024-08-22 15:35 | PHACLINREV_ITS ---
Pharmacy Admission Review Admission Clinical Review Admission Pharmacy Review: codeine Allergy (Intermediate, Verified 08/22/24 13:00) Hives sulfur dioxide Allergy (Intermediate, Verified 08/22/24 13:00) Hives Resuscitation Status Full Code Height 6 ft Weight 114 kg Comments Comments/Follow Ups: Watch BP, K+, labs, for culture results and for med changes. Pharmacy Admission Review Renal Dosing Renal Dosing: BUN 12 mg/dL (7-18) 08/22/24 11:51 Creatinine 1.2 mg/dL (0.70-1.30) 08/22/24 11:51 Medications needing adjustments: Reviewed (Crcl ~93.8 mL/min current meds are okay) Anticoagulation Anticoagulation: Hgb 11.6 g/dL (13.5-17.5) L 08/22/24 11:51 Hct 34.5 % (40.0-50.0) L 08/22/24 11:51 Plt Count 171 10^3/uL (130-400) 08/22/24 11:51 Creatinine 1.2 mg/dL (0.70-1.30) 08/22/24 11:51 Therapeutic Anticoagulation: Reviewed Medications: Dabigatran (hx DVT/PE) Opiate Usage Evaluate Pain Scale/Pains Meds: Reviewed Scheduled Bowel Reg ordered if on Opiates?: No (has PRN miralax ordered) Relevant Labs Relevant Labs: ESR 33 mm/hr (0-20) H 08/22/24 11:51 Sodium 141 mmol/L (136-145) 08/22/24 11:51 Potassium 3.1 mmol/L (3.5-5.1) L 08/22/24 11:51 Chloride 102 mmol/L (98-107) 08/22/24 11:51 C-Reactive Protein 16.35 mg/dL (<or=0.5) H 08/22/24 11:51 Electrolytes, C-Reactive P, ESR: Intervened (Will ask provider about possible K+ replacement) DM Control DM Control: Glucose 116 mg/dL (74-106) H 08/22/24 11:51 DM Control: Reviewed (No DM noted in pt's medical historym no A1c on file.) Cardiac Review BP, HR, EF%: Reviewed (BP has been normal to high and HR has mostly been within normal limits so far this admission.) QTc Review QTc: N/A IV to PO Switch IV Medications: Reviewed Home Meds Home Med List reviewed: Intervened (Per the correctional facility med list the patient should be on dabigatran due to a history of DVT/PE) Relevent Home Meds Not ordered & why?: clindamycin (has other antibiotics ordered), umeclidinium-vilanterol (has tiotropium/olodaterol subbed for this while here) Current Meds Current Medication Order Review: Intervened (Pantoprazole adjusted per medical records assistant time policy, PRN added to ondansetron frequency so crosses over to pyxis correctly, discontinued duplicate med orders, pt's anoro ellipta subbed per therapeutic drug substitution policy, prophylactic enoxaparin discontinued since pt is on dabigatran. ) Pharmacy Antibiotic Review Relevant Labs: Relevant Labs 08/22/24 11:51 C-Reactive Protein 16.35 H Pharmacy Antibiotic Activity: Abx regimen adjustment and C/S review Comments: Blood cultures are pending. Vanco and cefepime started for cellulitis. Resume previous vanco dosing (750 mg Q6H) as patient was improving while on that dose/frequency and previous serum levels were okay based on AUC target at that time. Administration rate decreased so each dose is given over 90 minutes to help increase estimated trough. Estimated trough with this regimen is ~11.2 (target trough of 10-15). Comments Comments/Follow Ups: Watch BP, K+, labs, for culture results and for med changes.
[2024-08-22] MEDS: Ondansetron O.D.T. 4 MG TABEF PO (15:36)
[2024-08-22] MEDS: MORPHine 2 MG/ML SYR 1 MG IVP ×2 (16:57→21:23)
[2024-08-22 19:16] LABS: MRSA PCR Positive (Negative)
[2024-08-22] MEDS: Normal Saline Flush 10 ML SYR IVP (20:06)
[2024-08-22] MEDS: VANCOMYCIN/WATER (PEG) 750 MG/150 ML BAG 100 MG IVPB (21:23)
[2024-08-23] VITALS (11 sets, daily range): BP systolic 135–155; BP diastolic 77–92; PULSE 70–90; RESP 14–19; TEMP 36.9–39; O2SAT 95–100
[2024-08-23] MEDS: CEFEPIME 2 GM in Normal Saline 100 ML IVPB ×3 (03:29→21:16)
[2024-08-23] MEDS: VANCOMYCIN/WATER (PEG) 750 MG/150 ML BAG 100 MG IVPB ×4 (04:07→22:04)
[2024-08-23] MEDS: MORPHine 2 MG/ML SYR 1 MG IVP ×5 (04:14→22:00)
[2024-08-23] MEDS: Acetaminophen 325 MG TAB PO ×2 (05:35→15:13)
[2024-08-23 06:43] LABS: HCT 31.5 % (40.0-50.0); MCH 30.2 pg (27.0-33.0); MCHC 34.9 % (32.0-36.0); MCV 87 fL (80-95); Platelet Count 181 10^3/uL (130-400); RBC 3.64 10^6/uL (4.36-5.78); RDW 14.2 % (11.8-14.1); WBC 9.76 10^3/uL (4.4-10.8)
[2024-08-23 06:54] LABS: Anion Gap 10.8 mmol/L (3-11); BUN 11 mg/dL (7-18); CO2 26.2 mmol/L (21.0-32.0); CREATININE 1.1 mg/dL (0.70-1.30); Calcium 8.8 mg/dL (8.5-10.1); Chloride 104 mmol/L (98-107); Estimated GFR 80.77 (mL/min/1.73m2); Glucose 128 mg/dL (74-106); Magnesium 1.9 mg/dL (1.8-2.4); Potassium 3.2 mmol/L (3.5-5.1); Sodium 141 mmol/L (136-145)
[2024-08-23] MEDS: Lisinopril 10 MG TAB 30 MG PO (07:58)
[2024-08-23] MEDS: Pantoprazole 40 MG TABCR PO (07:58)
[2024-08-23] MEDS: Metoprolol CR 100 MG TABCR PO (07:58)
[2024-08-23] MEDS: Montelukast 10 MG TAB PO (07:59)
[2024-08-23] MEDS: Normal Saline Flush 10 ML SYR IVP ×2 (07:59→19:33)
[2024-08-23] MEDS: amLODIPine 10 MG TAB PO (07:59)
--- NOTE | 2024-08-23 08:35 | W.PM.PROGNOT ---
Date of Service Date of service: 08/23/24 Time of Service: 08:35 Assessment and Plan Assessment and plan (1) Cellulitis: Status: Resolved Assessment and plan: -Rapid worsening of cellulitis within 24 hours of discharge - Patient had been on Vanco and Zosyn prior to discharge and was reportedly taking the p.o. clindamycin that was prescribed - Will go back to vancomycin and Zosyn - Follow-up blood culture results - On this admission though, patient does not meet criteria for sepsis as he does not have a leukocytosis, tachycardia or tachypnea, though did have a reported fever of 103 ?F at the long-term prior to presentation. - During this hospitalization though, it is recommended that once it is determined patient is ready for p.o. antibiotic regimen that he be observed for an additional 24 hours prior to discharge (2) Hypertension: Assessment and plan: -Continue outpatient therapy (3) Opioid use disorder, moderate, dependence: Assessment and plan: -Continue suboxone (4) GERD (gastroesophageal reflux disease): Assessment and plan: -continue PPI (5) COPD (chronic obstructive pulmonary disease): Assessment and plan: -without acute exacerbation -continue LAMA and albuterol prn (6) DVT prophylaxis: Status: Resolved Assessment and plan: enoxaparin Subjective Subjective Interval history since last seen: Patient states that he had a fever overnight but otherwise is feeling a little better. He is encouraged that some of the redness of his cellulitis has improved, though he does have significant worsening swelling in that left lower extremity. Otherwise he has no other complaints or concerns at this time. Exam Narrative Exam Narrative: Well-appearing gentleman laying in bed in no acute distress, ANO x 4, heart regular rhythm, lungs good auscultation bilaterally, abdomen soft, nontender, nondistended, left lower extremity with improved erythema as compared to the day of admission, with almost complete resolution of the erythema that was previously seen tracking up the upper inner left thigh, but without any localized palpable areas of fluctuance Objective Last Vital Signs Temp 98.8 F 08/23/24 08:26 Pulse 72 08/23/24 08:26 Resp 16 08/23/24 08:26 BP 152/92 H 08/23/24 08:26 Pulse Ox 99 08/23/24 08:26 Laboratory Results - last 24 hr 08/22/24 08/22/24 08/22/24 11:49 11:51 16:40 WBC 9.24 RBC 3.95 L Hgb 11.6 L Hct 34.5 L MCV 87 MCH 29.4 MCHC 33.6 RDW 14.0 Plt Count 171 MPV 10.3 Immature Gran % 1.4 Neutrophils % 74.9 Lymphocytes % 13.3 Monocytes % 8.7 Eosinophils % 1.3 Basophils % 0.4 Nucleated RBC % 0.0 Absolute Neutrophils 6.92 H Absolute Lymphocytes 1.23 Absolute Monocytes 0.80 Absolute Eosinophils 0.12 Absolute Basophils 0.04 ESR 33 H VBG Lactate 1.1 Sodium 141 Potassium 3.1 L Chloride 102 Carbon Dioxide 30.8 Anion Gap 8.2 BUN 12 Creatinine 1.2 Est GFR (CKD-EPI 2020) 72.76 Glucose 116 H Calcium 8.9 Magnesium Total Bilirubin 0.6 AST 27 ALT 24 Alkaline Phosphatase 94 C-Reactive Protein 16.35 H Total Protein 7.4 Albumin 2.6 L MRSA (TEM-PCR) Positive A 08/23/24 06:33 WBC 9.76 RBC 3.64 L Hgb 11.0 L Hct 31.5 L MCV 87 MCH 30.2 MCHC 34.9 RDW 14.2 H Plt Count 181 MPV 10.0 Immature Gran % Neutrophils % Lymphocytes % Monocytes % Eosinophils % Basophils % Nucleated RBC % Absolute Neutrophils Absolute Lymphocytes Absolute Monocytes Absolute Eosinophils Absolute Basophils ESR VBG Lactate Sodium 141 Potassium 3.2 L Chloride 104 Carbon Dioxide 26.2 Anion Gap 10.8 BUN 11 Creatinine 1.1 Est GFR (CKD-EPI 2020) 80.77 Glucose 128 H Calcium 8.8 Magnesium 1.9 Total Bilirubin AST ALT Alkaline Phosphatase C-Reactive Protein Total Protein Albumin MRSA (TEM-PCR) Time Spent with Patient Time Spent with Patient: >50 minutes Time was spent: preparing to see the patient(eg.review tests), obtaining and/or reviewing separately otained hiistory, ordering medications,tests, procedures, referring, communicating with other health pet care worker, indepentently interpreting results, counseling the patient and care coordination
[2024-08-23] MEDS: Buprenorphine/Naloxone 8 mg/2 mg FILM 2 EACH SL (08:52)
[2024-08-23] MEDS: Buprenorphine/Naloxone 2 mg/0.5 mg FILM 2 EACH SL (08:52)
[2024-08-23] MEDS: POTASSIUM CHLORIDE 20 MEQ/100 ML BAG 50 MEQ IV_INF ×2 (08:53→12:37)
[2024-08-23] MEDS: Furosemide 20 MG/2 ML VIAL IVP (08:53)
[2024-08-23] MEDS: Tiotropium/Olodaterol 10 PUFF INHALER 2 PUFF IH (09:12)
[2024-08-24 03:23] VITALS: BP 145/86; PULSE 72; RESP 19; TEMP 37.2; O2SAT 94
[2024-08-24] MEDS: VANCOMYCIN/WATER (PEG) 750 MG/150 ML BAG 100 MG IVPB ×3 (04:00→16:11)
[2024-08-24] MEDS: Normal Saline Flush 10 ML SYR IVP ×6 (04:00→20:32)
[2024-08-24] MEDS: CEFEPIME 2 GM in Normal Saline 100 ML IVPB ×3 (05:41→22:16)
[2024-08-24 06:25] LABS: HCT 31.6 % (40.0-50.0); HGB 10.9 g/dL (13.5-17.5); MCHC 34.5 % (32.0-36.0); MCV 87 fL (80-95); Platelet Count 207 10^3/uL (130-400); RBC 3.63 10^6/uL (4.36-5.78); RDW-SD 44.5 fL; WBC 9.48 10^3/uL (4.4-10.8)
[2024-08-24 06:39] LABS: Anion Gap 8.3 mmol/L (3-11); BUN 12 mg/dL (7-18); CO2 26.7 mmol/L (21.0-32.0); Calcium 8.7 mg/dL (8.5-10.1); Chloride 103 mmol/L (98-107); Estimated GFR 90.56 (mL/min/1.73m2); Glucose 114 mg/dL (74-106); Potassium 3.4 mmol/L (3.5-5.1); Sodium 138 mmol/L (136-145)
[2024-08-24 07:08] VITALS: BP 138/88; PULSE 75; RESP 16; TEMP 37.5; O2SAT 99
[2024-08-24] MEDS: MORPHine 2 MG/ML SYR 1 MG IVP ×3 (07:56→20:37)
[2024-08-24] MEDS: Pantoprazole 40 MG TABCR PO (08:01)
[2024-08-24] MEDS: Metoprolol CR 100 MG TABCR PO (08:01)
[2024-08-24] MEDS: amLODIPine 10 MG TAB PO (08:01)
[2024-08-24] MEDS: Buprenorphine/Naloxone 2 mg/0.5 mg FILM 2 EACH SL (08:02)
[2024-08-24] MEDS: Buprenorphine/Naloxone 8 mg/2 mg FILM 2 EACH SL (08:02)
[2024-08-24] MEDS: Montelukast 10 MG TAB PO (08:02)
[2024-08-24] MEDS: Lisinopril 10 MG TAB 30 MG PO (08:03)
[2024-08-24] MEDS: Tiotropium/Olodaterol 10 PUFF INHALER 2 PUFF IH (09:38)
[2024-08-24 11:48] VITALS: BP 141/88; PULSE 72; RESP 16; TEMP 36.5; O2SAT 96
--- NOTE | 2024-08-24 12:16 | W.PM.PROGNOT ---
Date of Service Date of service: 08/24/24 Time of Service: 12:16 Assessment and Plan Assessment and plan (1) Cellulitis: Status: Resolved Assessment and plan: -Rapid worsening of cellulitis within 24 hours of discharge - Patient had been on Vanco and Zosyn prior to discharge and was reportedly taking the p.o. clindamycin that was prescribed - Will go back to vancomycin and Zosyn - Follow-up blood culture results - On this admission though, patient does not meet criteria for sepsis as he does not have a leukocytosis, tachycardia or tachypnea, though did have a reported fever of 103 ?F at the custodial prior to presentation. - During this hospitalization though, it is recommended that once it is determined patient is ready for p.o. antibiotic regimen that he be observed for an additional 24 hours prior to discharge 08/24/24 Pt is on vancomycin and cefepime. Blood cultures negative at 24 hours (2) Hypertension: Assessment and plan: -Continue outpatient therapy (3) Opioid use disorder, moderate, dependence: Assessment and plan: -Continue suboxone (4) GERD (gastroesophageal reflux disease): Assessment and plan: -continue PPI (5) COPD (chronic obstructive pulmonary disease): Assessment and plan: -without acute exacerbation -continue LAMA and albuterol prn (6) DVT prophylaxis: Status: Resolved Assessment and plan: enoxaparin Subjective Subjective Interval history since last seen: PT seen and examined in his room. No new complaints. States that he does feel better Exam Narrative Exam Narrative: Well-appearing gentleman laying in bed in no acute distress, ANO x 4, heart regular rhythm, lungs good auscultation bilaterally, abdomen soft, nontender, nondistended, left lower extremity with improved erythema as compared to the day of admission, with almost complete resolution of the erythema that was previously seen tracking up the upper inner left thigh, but without any localized palpable areas of fluctuance Objective Last Vital Signs Temp 36.5 C 08/24/24 11:48 Pulse 72 08/24/24 11:48 Resp 16 08/24/24 11:48 BP 141/88 H 08/24/24 11:48 Pulse Ox 96 08/24/24 11:48 Laboratory Results - last 24 hr 08/24/24 06:08 WBC 9.48 RBC 3.63 L Hgb 10.9 L Hct 31.6 L MCV 87 MCH 30.0 MCHC 34.5 RDW 14.0 Plt Count 207 MPV 10.0 Sodium 138 Potassium 3.4 L Chloride 103 Carbon Dioxide 26.7 Anion Gap 8.3 BUN 12 Creatinine 1.0 Est GFR (CKD-EPI 2020) 90.56 Glucose 114 H Calcium 8.7 Time Spent with Patient Time Spent with Patient: 25-34 minutes Time was spent: preparing to see the patient(eg.review tests), obtaining and/or reviewing separately otained hiistory, ordering medications,tests, procedures, referring, communicating with other health health care marketing specialist, indepentently interpreting results, counseling the patient and care coordination
[2024-08-24 16:07] VITALS: BP 148/84; PULSE 82; RESP 16; TEMP 36.6; O2SAT 99
[2024-08-24 19:18] VITALS: BP 154/82; PULSE 77; RESP 16; TEMP 36.8; O2SAT 98
[2024-08-24] MEDS: Acetaminophen 325 MG TAB PO (20:31)
[2024-08-24] MEDS: VANCOMYCIN/WATER (PEG) 750 MG/150 ML BAG 150 MG IVPB (23:08)
[2024-08-24 23:11] VITALS: BP 132/83; PULSE 74; RESP 16; TEMP 36.1; O2SAT 96
--- NOTE | 2024-08-25 | DI.US_ITS ---
Exam(s) US EXTREMITY VENOUS BI EXAM: US EXTREMITY VENOUS BI CLINICAL HISTORY: dvt. TECHNIQUE: Bilateral lower extremity venous ultrasound performed using grayscale, color-flow, and spectral Doppler analysis. COMPARISON: No exams were available for comparison FINDINGS: The right common femoral, femoral and popliteal veins demonstrate normal compressibility, augmentation, and color Doppler. The posterior tibial and peroneal veins are patent. The saphenofemoral junction is unremarkable. There is no evidence of a Bliss's cyst. The soft tissues are unremarkable. The left common femoral, femoral and popliteal veins demonstrate normal compressibility, augmentation, and color Doppler. The posterior tibial and peroneal veins are patent. The saphenofemoral junction is unremarkable. There is no evidence of a Bliss's cyst. The soft tissues are unremarkable. IMPRESSION: 1. No evidence of a right lower extremity DVT. 2. No evidence of a left lower extremity DVT. DATA REPOSITORY:
[2024-08-25] MEDS: Acetaminophen 325 MG TAB PO ×3 (00:29→20:04)
[2024-08-25] MEDS: MORPHine 2 MG/ML SYR 1 MG IVP ×4 (00:29→20:04)
[2024-08-25] MEDS: VANCOMYCIN/WATER (PEG) 750 MG/150 ML BAG 150 MG IVPB ×2 (04:54→11:09)
[2024-08-25] MEDS: Normal Saline Flush 10 ML SYR IVP ×4 (04:54→20:04)
[2024-08-25] MEDS: CEFEPIME 2 GM in Normal Saline 100 ML IVPB ×3 (06:07→21:45)
[2024-08-25 06:08] VITALS: BP 148/81; PULSE 65; RESP 15; TEMP 36.5; O2SAT 99
[2024-08-25 07:10] LABS: HCT 35.5 % (40.0-50.0); HGB 11.8 g/dL (13.5-17.5); MCH 29.4 pg (27.0-33.0); MCHC 33.2 % (32.0-36.0); MCV 89 fL (80-95); MPV 10.3 fL (8.0-11.0); Platelet Count 252 10^3/uL (130-400); RBC 4.01 10^6/uL (4.36-5.78); RDW-SD 45.6 fL; WBC 8.99 10^3/uL (4.4-10.8)
[2024-08-25 07:36] LABS: ALT 30 U/L (16-63); AST 25 U/L (15-37); Albumin 2.5 g/dL (3.4-5.0); Alkaline Phosphatase 86 U/L (46-116); Anion Gap 8.9 mmol/L (3-11); BUN 12 mg/dL (7-18); Bilirubin, Total 0.5 mg/dL (0.2-1.0); CO2 28.1 mmol/L (21.0-32.0); Calcium 9.1 mg/dL (8.5-10.1); Chloride 103 mmol/L (98-107); Estimated GFR 90.56 (mL/min/1.73m2); Glucose 107 mg/dL (74-106); Potassium 3.7 mmol/L (3.5-5.1); Sodium 140 mmol/L (136-145); Total Protein 7.4 g/dL (6.4-8.2)
[2024-08-25] MEDS: Tiotropium/Olodaterol 10 PUFF INHALER 2 PUFF IH (07:41)
[2024-08-25 07:53] LABS: Absolute Eosinophil Count 0.36 10^3/uL (0.0-0.7); Absolute Lymphocyte Count 1.98 10^3/uL (1.2-3.4); Absolute Monocyte Count 0.72 10^3/uL (0.1-0.8); Absolute Neutrophil Count 5.66 10^3/uL (1.2-6.7); Bands % 3 %; Diff Comment Manual Differential; Metamyelocytes % 3; RBC Morphology Normal
[2024-08-25 07:59] VITALS: BP 133/81; PULSE 65; RESP 17; TEMP 36.2; O2SAT 96
--- NOTE | 2024-08-25 08:56 | CMPROGNOTE_ITS ---
Date of service: 08/25/24 Time of Service: 08:57 Care Management Progress Note Progress Note Text Progress Note Text: Saroj was sitting up in bed when CM met with him. He informed CM that he had only been back at [facility] for less than 24 hours. He was discharged on and readmitted on Sunday. Saroj reported that he had been on IV antibiotics at the hospital and switched to oral at discharge. He shared that he had taken 3 doses orally at the intermediate when his fever spiked to 103 F and the cellulitis got worse. The plan this admission will be to observe Saroj on oral antibiotics for at least 24 hours before discharging him back to [facility] after IV antibiotics are discontinued. Discharge Potential Discharge Needs: Other (return to [facility]) Anticipated Barriers to Discharge: None Identified Patient/Family Education Needs: Review discharge instructions, discuss Ask Me Three Transportation: Facility Transport Plan: Anticipate, Saroj will return to the [facility] when medically stable. He will follow up with facility providers and plan of care and transport with corrections staff. CM will continue to follow. Social Determinants of Health Screening Social Determinants of health last assessed in clinic: 08/25/24 Will the Patient Participate in the Screening?: Yes Do you worry about having a steady place to live?: yes What is your living situation today?: I have housing today, but am worried about losing it Problems where you live: no known problems In the past 12 months, have you had to go without electric, gas, oil or water in your home?: choose not to answer 1. Within the past 12 months, we worried whether our food would run out before we got money to buy more.: Never true 2. Within the past 12 months, the food we bought just didn't last and we didn't have money to get more.: Never true Has lack of transportation kept you from medical appointments or from doing things needed for daily living?: choose not to answer Has anyone in your life made you feel unsafe or unsupported?: choose not to answer How hard is it for you to pay for the very basics like food, housing, medical care, and heating? Would you say it is:: Not hard at all Do you want help finding or keeping work or a job?: I do not need or want help If for any reason you need help with day-to-day activities such as bathing, preparing meals, shopping, managing finances, etc., do you get the help you need?: I don?t need any help How often do you feel lonely or isolated from those around you?: Never Do you speak a language other than Lithuanian at home?: No Comments: N/A-pt resides in nursing home Health Related Social Needs Health related social needs: housing instability, housed, with risk of homelessness (Z59.811) and material hardship(utilities) (Z59.12) Health related social needs details: pt resides in nursing home
[2024-08-25] MEDS: amLODIPine 10 MG TAB PO (09:01)
[2024-08-25] MEDS: Montelukast 10 MG TAB PO (09:01)
[2024-08-25] MEDS: Metoprolol CR 100 MG TABCR PO (09:01)
[2024-08-25] MEDS: Buprenorphine/Naloxone 2 mg/0.5 mg FILM 2 EACH SL (09:02)
[2024-08-25] MEDS: Pantoprazole 40 MG TABCR PO (09:02)
[2024-08-25] MEDS: Buprenorphine/Naloxone 8 mg/2 mg FILM 2 EACH SL (09:02)
[2024-08-25] MEDS: Lisinopril 10 MG TAB 30 MG PO (09:02)
--- NOTE | 2024-08-25 11:15 | PGE_ITS ---
Date of Service Date of service: 08/25/24 Time of Service: 11:15 Assessment and Plan Assessment and plan (1) Cellulitis: Status: Resolved Assessment and plan: -Rapid worsening of cellulitis within 24 hours of discharge - Patient had been on Vanco and Zosyn prior to discharge and was reportedly taking the p.o. clindamycin that was prescribed - Will go back to vancomycin and Zosyn - Follow-up blood culture results - On this admission though, patient does not meet criteria for sepsis as he does not have a leukocytosis, tachycardia or tachypnea, though did have a reported f ever of 103 ?F at the half-way prior to presentation. - During this hospitalization though, it is recommended that once it is determined patient is ready for p.o. antibiotic regimen that he be observed for an additional 24 hours prior to discharge 08/24/24 Pt is on vancomycin and cefepime. Blood cultures negative at 24 hours 08/25/24 Continue with iv abx for now as pt had recent abx failure. Will check HIV and a1c to see if there is a component to immuno supression (2) Hypertension: Assessment and plan: -Continue outpatient therapy (3) Opioid use disorder, moderate, dependence: Assessment and plan: -Continue suboxone (4) GERD (gastroesophageal reflux disease): Assessment and plan: -continue PPI (5) COPD (chronic obstructive pulmonary disease): Assessment and plan: -without acute exacerbation -continue LAMA and albuterol prn (6) DVT prophylaxis: Status: Resolved Assessment and plan: enoxaparin (7) Hypercoagulable state: Status: Acute Assessment and plan: Per pt report, pt does take Pradaxa 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 Pt states that he is on Pradax 2/2 episodes of embolism (PE and DVT in LLE). Pt is unsure if he is supposed to take this lifelong. PT denies f/c/n/v Exam Narrative Exam Narrative: Well-appearing gentleman laying in bed in no acute distress, ANO x 4, heart regular rhythm, lungs good auscultation bilaterally, abdomen soft, nontender, nondistended, left lower extremity with improved erythema as compared to the day of admission, with almost complete resolution of the erythema that was previously seen tracking up the upper inner left thigh, but without any localized palpable areas of fluctuance Objective Last Vital Signs Temp 36.2 C L 08/25/24 07:59 Pulse 65 08/25/24 07:59 Resp 17 08/25/24 07:59 BP 133/81 08/25/24 07:59 Pulse Ox 96 08/25/24 07:59 Laboratory Results - last 24 hr 08/25/24 06:45 WBC 8.99 RBC 4.01 L Hgb 11.8 L Hct 35.5 L MCV 89 MCH 29.4 MCHC 33.2 RDW 14.0 Plt Count 252 MPV 10.3 Immature Gran % 0.0 Neutrophils % 60.0 Band Neutrophils % 3 Lymphocytes % 22.0 Monocytes % 8.0 Eosinophils % 4.0 Basophils % 0.0 Metamyelocytes % 3 Nucleated RBC % 0.0 Absolute Neutrophils 5.66 Absolute Lymphocytes 1.98 Absolute Monocytes 0.72 Absolute Eosinophils 0.36 Absolute Basophils 0.00 RBC Morphology Normal Sodium 140 Potassium 3.7 Chloride 103 Carbon Dioxide 28.1 Anion Gap 8.9 BUN 12 Creatinine 1.0 Est GFR (CKD-EPI 2020) 90.56 Glucose 107 H Calcium 9.1 Total Bilirubin 0.5 AST 25 ALT 30 Alkaline Phosphatase 86 Total Protein 7.4 Albumin 2.5 L Time Spent with Patient Time Spent with Patient: 25-34 minutes Time was spent: preparing to see the patient(eg.review tests), obtaining and/or reviewing separately otained hiistory, ordering medications,tests, procedures, referring, communicating with other health career guidance counselor, indepentently interpreting results, counseling the patient and care coordination
[2024-08-25 11:32] VITALS: BP 135/84; PULSE 64; RESP 16; TEMP 36.7; O2SAT 98
[2024-08-25 15:25] LABS: Vancomycin, Trough 22.2 ug/mL (10.0-20.0)
[2024-08-25 16:20] VITALS: BP 132/79; PULSE 61; RESP 16; TEMP 36.3; O2SAT 98
[2024-08-25 19:54] VITALS: BP 148/84; PULSE 70; RESP 16; TEMP 36; O2SAT 98
[2024-08-25] MEDS: VANCOMYCIN/WATER (PEG) 750 MG/150 ML BAG 100 MG IVPB (20:05)
[2024-08-25 23:35] VITALS: BP 118/75; PULSE 68; RESP 16; TEMP 37.1; O2SAT 97
[2024-08-26] MEDS: VANCOMYCIN/WATER (PEG) 750 MG/150 ML BAG 100 MG IVPB ×3 (04:06→20:42)
[2024-08-26] MEDS: Acetaminophen 325 MG TAB PO ×4 (04:13→22:49)
[2024-08-26] MEDS: MORPHine 2 MG/ML SYR 1 MG IVP ×4 (04:13→18:51)
[2024-08-26] MEDS: Normal Saline Flush 10 ML SYR IVP ×5 (04:14→20:41)
[2024-08-26 04:17] VITALS: BP 118/75; PULSE 63; RESP 15; TEMP 36.8; O2SAT 98
[2024-08-26] MEDS: CEFEPIME 2 GM in Normal Saline 100 ML IVPB ×3 (06:25→22:48)
[2024-08-26 07:03] LABS: Abs Immature Grans 0.45 10^3/uL (0.0-0.06); Absolute Basophil Count 0.08 10^3/uL (0.0-0.2); Absolute Eosinophil Count 0.52 10^3/uL (0.0-0.7); Absolute Monocyte Count 0.88 10^3/uL (0.1-0.8); Absolute Neutrophil Count 6.04 10^3/uL (1.2-6.7); Basophils % 0.8 %; Eosinophils % 5.3 %; HCT 34.2 % (40.0-50.0); HGB 11.5 g/dL (13.5-17.5); Immature Grans % 4.6 %; Lymphocytes % 19.3 %; MCH 29.8 pg (27.0-33.0); MCHC 33.6 % (32.0-36.0); MCV 89 fL (80-95); MPV 9.9 fL (8.0-11.0); Monocytes % 8.9 %; Neutrophils % 61.1 %; Platelet Count 327 10^3/uL (130-400); RBC 3.86 10^6/uL (4.36-5.78); RDW-SD 45.1 fL; WBC 9.87 10^3/uL (4.4-10.8)
[2024-08-26 07:18] VITALS: BP 130/77; PULSE 68; RESP 17; TEMP 36; O2SAT 97
[2024-08-26 07:34] LABS: Hemoglobin A1C 5.6 % (<5.7)
[2024-08-26 07:37] LABS: ALT 37 U/L (16-63); AST 26 U/L (15-37); Albumin 2.6 g/dL (3.4-5.0); Alkaline Phosphatase 87 U/L (46-116); Anion Gap 8.7 mmol/L (3-11); BUN 14 mg/dL (7-18); Bilirubin, Total 0.4 mg/dL (0.2-1.0); CO2 27.3 mmol/L (21.0-32.0); CREATININE 1.2 mg/dL (0.70-1.30); Chloride 103 mmol/L (98-107); Estimated GFR 72.76 (mL/min/1.73m2); Glucose 101 mg/dL (74-106); Potassium 3.9 mmol/L (3.5-5.1); Sodium 139 mmol/L (136-145); Total Protein 7.5 g/dL (6.4-8.2)
[2024-08-26] MEDS: Tiotropium/Olodaterol 10 PUFF INHALER 2 PUFF IH (08:36)
--- NOTE | 2024-08-26 09:58 | PDOC.CMPRO ---
Date of service: 08/26/24 Time of Service: 09:58 Care Management Progress Note Progress Note Text Progress Note Text: Saroj was sitting up in bed when CM met with him. he was pleasant in interaction and appeared to be in good spirits. he was eating his diner and was pleased with the salmon he was served. he noted that it it not a food itm he has available at the correctional facility. Saroj's cellulitis in improving. He informed CM that he has less pain and is pleased that the US done yesterday did not reveal any blood clots. Discharge Potential Discharge Needs: Other (return to [facility]) Anticipated Barriers to Discharge: Medical Status Patient/Family Education Needs: Review discharge instructions, discuss Ask Me Three Transportation: Facility Transport Plan: Anticipate Saroj will return to the [facility] when medically stable. He will follow up with facility providers and plan of care and transport with corrections staff. CM will follow and continue to support discharge planning efforts. Social Determinants of Health Screening Social Determinants of health last assessed in clinic: 08/26/24 Will the Patient Participate in the Screening?: Yes Do you worry about having a steady place to live?: yes What is your living situation today?: I have housing today, but am worried about losing it Problems where you live: no known problems In the past 12 months, have you had to go without electric, gas, oil or water in your home?: choose not to answer 1. Within the past 12 months, we worried whether our food would run out before we got money to buy more.: Never true 2. Within the past 12 months, the food we bought just didn't last and we didn't have money to get more.: Never true Has lack of transportation kept you from medical appointments or from doing things needed for daily living?: choose not to answer Has anyone in your life made you feel unsafe or unsupported?: choose not to answer How hard is it for you to pay for the very basics like food, housing, medical care, and heating? Would you say it is:: Not hard at all Do you want help finding or keeping work or a job?: I do not need or want help If for any reason you need help with day-to-day activities such as bathing, preparing meals, shopping, managing finances, etc., do you get the help you need?: I don?t need any help How often do you feel lonely or isolated from those around you?: Never Do you speak a language other than Pashto at home?: No Comments: N/A-pt resides in senior living Health Related Social Needs Health related social needs: housing instability, housed, with risk of homelessness (Z59.811) and material hardship(utilities) (Z59.12) Health related social needs details: pt resides in senior living
[2024-08-26] MEDS: Montelukast 10 MG TAB PO (10:16)
[2024-08-26] MEDS: Metoprolol CR 100 MG TABCR PO (10:16)
[2024-08-26] MEDS: Pantoprazole 40 MG TABCR PO (10:17)
[2024-08-26] MEDS: Buprenorphine/Naloxone 2 mg/0.5 mg FILM 2 EACH SL (10:17)
[2024-08-26] MEDS: Lisinopril 10 MG TAB 30 MG PO (10:17)
[2024-08-26] MEDS: amLODIPine 10 MG TAB PO (10:17)
[2024-08-26] MEDS: Buprenorphine/Naloxone 8 mg/2 mg FILM 2 EACH SL (10:18)
[2024-08-26 11:42] VITALS: BP 155/86; PULSE 59; TEMP 36.2
--- NOTE | 2024-08-26 12:22 | PGE_ITS ---
Date of Service Date of service: 08/26/24 Time of Service: 12:22 Assessment and Plan Assessment and plan (1) Cellulitis: Status: Resolved Assessment and plan: -Rapid worsening of cellulitis within 24 hours of discharge - Patient had been on Vanco and Zosyn prior to discharge and was reportedly taking the p.o. clindamycin that was prescribed - Will go back to vancomycin and Zosyn - Follow-up blood culture results - On this admission though, patient does not meet criteria for sepsis as he does not have a leukocytosis, tachycardia or tachypnea, though did have a reported f ever of 103 ?F at the care home prior to presentation. - During this hospitalization though, it is recommended that once it is determined patient is ready for p.o. antibiotic regimen that he be observed for an additional 24 hours prior to discharge 08/24/24 Pt is on vancomycin and cefepime. Blood cultures negative at 24 hours 08/25/24 Continue with iv abx for now as pt had recent abx failure. Will check HIV and a1c to see if there is a component to immuno supression 08/26/24 a1c wnl, hiv pending. Plan to dc on bactrim tomorrow (2) Hypertension: Assessment and plan: -Continue outpatient therapy (3) Opioid use disorder, moderate, dependence: Assessment and plan: -Continue suboxone (4) GERD (gastroesophageal reflux disease): Assessment and plan: -continue PPI (5) COPD (chronic obstructive pulmonary disease): Assessment and plan: -without acute exacerbation -continue LAMA and albuterol prn (6) DVT prophylaxis: Status: Resolved Assessment and plan: enoxaparin (7) Hypercoagulable state: Status: Acute Assessment and plan: Per pt report, pt does take Pradaxa 2/2 multiple thrombotic events in the past Subjective Subjective Interval history since last seen: No new complaints except a knee bruise. Bilat SOLITARIO USN negative Exam Narrative Exam Narrative: HEENT-NCAT MMM EOMI NECK-NO LAD NO JVD CV-RRR NO MRG LUNGS-CTAB NO AMU ABD-SNTNDBSA EST-LEFT KNEE BRUISE OTW DECREASING ERYTHEMA AND EDEMA OF LLE Objective Last Vital Signs Temp 36.2 C L 08/26/24 11:42 Pulse 59 L 08/26/24 11:42 Resp 17 08/26/24 07:18 BP 155/86 H 08/26/24 11:42 Pulse Ox 97 08/26/24 07:18 Laboratory Results - last 24 hr 08/25/24 08/26/24 15:00 06:41 WBC 9.87 RBC 3.86 L Hgb 11.5 L Hct 34.2 L MCV 89 MCH 29.8 MCHC 33.6 RDW 14.0 Plt Count 327 MPV 9.9 Immature Gran % 4.6 Neutrophils % 61.1 Lymphocytes % 19.3 Monocytes % 8.9 Eosinophils % 5.3 Basophils % 0.8 Nucleated RBC % 0.0 Absolute Neutrophils 6.04 Absolute Lymphocytes 1.90 Absolute Monocytes 0.88 H Absolute Eosinophils 0.52 Absolute Basophils 0.08 Sodium 139 Potassium 3.9 Chloride 103 Carbon Dioxide 27.3 Anion Gap 8.7 BUN 14 Creatinine 1.2 Est GFR (CKD-EPI 2020) 72.76 Glucose 101 Hemoglobin A1c 5.6 Calcium 9.0 Total Bilirubin 0.4 AST 26 ALT 37 Alkaline Phosphatase 87 Total Protein 7.5 Albumin 2.6 L Vancomycin Trough 22.2 H* Time Spent with Patient Time Spent with Patient: 25-34 minutes Time was spent: preparing to see the patient(eg.review tests), obtaining and/or reviewing separately otained hiistory, ordering medications,tests, procedures, referring, communicating with other health childbirth and infant care teacher, indepentently interpreting results, counseling the patient and care coordination
[2024-08-26 15:36] VITALS: BP 116/74; PULSE 65; RESP 17; TEMP 36; O2SAT 97
[2024-08-26 19:48] LABS: HIV-1/2 Ag & Ab Screen Negative (Negative)
[2024-08-26 20:45] VITALS: BP 129/75; PULSE 75; RESP 18; TEMP 36.5; O2SAT 99
[2024-08-26 23:44] VITALS: BP 120/75; PULSE 68; RESP 18; TEMP 36.6; O2SAT 96
[2024-08-27 04:33] VITALS: BP 122/74; PULSE 60; RESP 16; TEMP 36.5; O2SAT 98
[2024-08-27] MEDS: MORPHine 2 MG/ML SYR 1 MG IVP ×4 (05:03→20:43)
[2024-08-27] MEDS: VANCOMYCIN/WATER (PEG) 750 MG/150 ML BAG 100 MG IVPB ×2 (05:03→11:42)
[2024-08-27] MEDS: Normal Saline Flush 10 ML SYR IVP ×3 (05:04→20:39)
[2024-08-27 06:47] LABS: Abs Immature Grans 0.35 10^3/uL (0.0-0.06); Absolute Basophil Count 0.07 10^3/uL (0.0-0.2); Absolute Eosinophil Count 0.48 10^3/uL (0.0-0.7); Absolute Lymphocyte Count 1.85 10^3/uL (1.2-3.4); Absolute Monocyte Count 0.83 10^3/uL (0.1-0.8); Basophils % 0.7 %; Eosinophils % 4.6 %; HCT 35.7 % (40.0-50.0); Immature Grans % 3.3 %; Lymphocytes % 17.7 %; MCH 29.9 pg (27.0-33.0); MCHC 33.6 % (32.0-36.0); MCV 89 fL (80-95); MPV 9.8 fL (8.0-11.0); Monocytes % 7.9 %; Neutrophils % 65.8 %; Platelet Count 370 10^3/uL (130-400); RBC 4.02 10^6/uL (4.36-5.78); RDW 13.6 % (11.8-14.1); RDW-SD 44.3 fL; WBC 10.48 10^3/uL (4.4-10.8)
[2024-08-27] MEDS: CEFEPIME 2 GM in Normal Saline 100 ML IVPB ×2 (06:47→14:22)
[2024-08-27 07:37] LABS: ALT 35 U/L (16-63); AST 25 U/L (15-37); Albumin 2.8 g/dL (3.4-5.0); Alkaline Phosphatase 89 U/L (46-116); Anion Gap 10.3 mmol/L (3-11); BUN 15 mg/dL (7-18); Bilirubin, Total 0.4 mg/dL (0.2-1.0); CO2 25.7 mmol/L (21.0-32.0); CREATININE 1.1 mg/dL (0.70-1.30); Calcium 9.2 mg/dL (8.5-10.1); Chloride 104 mmol/L (98-107); Estimated GFR 80.77 (mL/min/1.73m2); Glucose 104 mg/dL (74-106); Potassium 4.2 mmol/L (3.5-5.1); Sodium 140 mmol/L (136-145); Total Protein 7.7 g/dL (6.4-8.2)
[2024-08-27 07:45] VITALS: BP 131/79; PULSE 64; RESP 12; TEMP 36.8; O2SAT 97
[2024-08-27] MEDS: Tiotropium/Olodaterol 10 PUFF INHALER 2 PUFF IH (07:54)
--- NOTE | 2024-08-27 09:59 | PDOC.CMPRO ---
Date of service: 08/27/24 Time of Service: 09:59 Care Management Progress Note Progress Note Text Progress Note Text: Saroj was ambulating in the art when CM met with him. He appeared to be in good spirits and continues to feel like he is improving. The provider plans to change his antibiotic from IV to oral today and, if he tolerates the new med with no deterioration of the cellulitis, he will likely return to [facility] tomorrow. The choice of oral antibiotic has not been determined yet however as Saroj is allergic to sulfa drugs and Bactrim was the first choice. When the decision is made, CM will notify the corrections staff so that they can order the medication chosen if not in stock. Discharge Potential Discharge Needs: Other (return to [facility]) Anticipated Barriers to Discharge: Medical Status Patient/Family Education Needs: Review discharge instructions, discuss Ask Me Three Transportation: Facility Transport Plan: Anticipate Saroj will return to the [facility] when medically stable. He will follow up with facility providers and plan of care and transport with corrections staff. CM will follow and continue to support discharge planning efforts. Social Determinants of Health Screening Social Determinants of health last assessed in clinic: 08/27/24 Will the Patient Participate in the Screening?: Yes Do you worry about having a steady place to live?: yes What is your living situation today?: I have housing today, but am worried about losing it Problems where you live: no known problems In the past 12 months, have you had to go without electric, gas, oil or water in your home?: choose not to answer 1. Within the past 12 months, we worried whether our food would run out before we got money to buy more.: Never true 2. Within the past 12 months, the food we bought just didn't last and we didn't have money to get more.: Never true Has lack of transportation kept you from medical appointments or from doing things needed for daily living?: choose not to answer Has anyone in your life made you feel unsafe or unsupported?: choose not to answer How hard is it for you to pay for the very basics like food, housing, medical care, and heating? Would you say it is:: Not hard at all Do you want help finding or keeping work or a job?: I do not need or want help If for any reason you need help with day-to-day activities such as bathing, preparing meals, shopping, managing finances, etc., do you get the help you need?: I don?t need any help How often do you feel lonely or isolated from those around you?: Never Do you speak a language other than Romansh at home?: No Comments: N/A-pt resides in assisted Health Related Social Needs Health related social needs: housing instability, housed, with risk of homelessness (Z59.811) and material hardship(utilities) (Z59.12) Health related social needs details: pt resides in assisted
[2024-08-27] MEDS: Pantoprazole 40 MG TABCR PO (10:12)
[2024-08-27] MEDS: Montelukast 10 MG TAB PO (10:12)
[2024-08-27] MEDS: Lisinopril 10 MG TAB 30 MG PO (10:12)
[2024-08-27] MEDS: Metoprolol CR 100 MG TABCR PO (10:13)
[2024-08-27] MEDS: Buprenorphine/Naloxone 8 mg/2 mg FILM 2 EACH SL (10:13)
[2024-08-27] MEDS: amLODIPine 10 MG TAB PO (10:13)
[2024-08-27] MEDS: Buprenorphine/Naloxone 2 mg/0.5 mg FILM 2 EACH SL (10:13)
--- NOTE | 2024-08-27 10:59 | PGE_ITS ---
Date of Service Date of service: 08/27/24 Time of Service: 10:59 Assessment and Plan Assessment and plan (1) Cellulitis: Status: Resolved Assessment and plan: -Rapid worsening of cellulitis within 24 hours of discharge - Patient had been on Vanco and Zosyn prior to discharge and was reportedly taking the p.o. clindamycin that was prescribed - Will go back to vancomycin and Zosyn - Follow-up blood culture results - On this admission though, patient does not meet criteria for sepsis as he does not have a leukocytosis, tachycardia or tachypnea, though did have a reported f ever of 103 [facility]F [facility] prior to [facility]. - During this hospitalization though, it is recommended that once it is determined patient is ready for p.o. antibiotic regimen that he be observed for an additional 24 hours prior to discharge 08/24/24 Pt is on vancomycin and cefepime. Blood cultures negative at 24 hours 08/25/24 Continue with iv abx for now as pt had recent abx failure. Will check HIV and a1c to see if there is a component to immuno supression 08/26/24 a1c wnl, hiv pending. Plan to dc on bactrim tomorrow 08/27/24 HIV negative. Pt with allergy to sulfa so no bactrim. Will start linezolid tonight 2/2 failure with clinda. Monitor overnight plan on dc in am (2) Hypertension: Assessment and plan: -Continue outpatient therapy (3) Opioid use disorder, moderate, dependence: Assessment and plan: -Continue suboxone (4) GERD (gastroesophageal reflux disease): Assessment and plan: -continue PPI (5) COPD (chronic obstructive pulmonary disease): Assessment and plan: -without acute exacerbation -continue LAMA and albuterol prn (6) DVT prophylaxis: Status: Resolved Assessment and plan: enoxaparin (7) Hypercoagulable state: Status: Acute Assessment and plan: Per pt report, pt does take Pradaxa 2/2 multiple thrombotic events in the past Subjective Subjective Interval history since last seen: pt seen and examined. No new complaints. Pt does have an allergy to sulfa which causes hives. Exam Narrative Exam Narrative: HEENT-NCAT MMM EOMI NECK-NO LAD NO JVD CV-RRR NO MRG LUNGS-CTAB NO AMU ABD-SNTNDBSA EST-LEFT KNEE BRUISE OTW DECREASING ERYTHEMA AND EDEMA OF LLE Objective Last Vital Signs Temp 36.8 C 08/27/24 07:45 Pulse 64 08/27/24 07:45 Resp 12 08/27/24 07:45 BP 131/79 08/27/24 07:45 Pulse Ox 97 08/27/24 07:45 Laboratory Results - last 24 hr 08/26/24 08/27/24 06:41 06:20 WBC 10.48 RBC 4.02 L Hgb 12.0 L Hct 35.7 L MCV 89 MCH 29.9 MCHC 33.6 RDW 13.6 Plt Count 370 MPV 9.8 Immature Gran % 3.3 Neutrophils % 65.8 Lymphocytes % 17.7 Monocytes % 7.9 Eosinophils % 4.6 Basophils % 0.7 Nucleated RBC % 0.0 Absolute Neutrophils 6.90 H Absolute Lymphocytes 1.85 Absolute Monocytes 0.83 H Absolute Eosinophils 0.48 Absolute Basophils 0.07 Sodium 140 Potassium 4.2 Chloride 104 Carbon Dioxide 25.7 Anion Gap 10.3 BUN 15 Creatinine 1.1 Est GFR (CKD-EPI 2020) 80.77 Glucose 104 Calcium 9.2 Total Bilirubin 0.4 AST 25 ALT 35 Alkaline Phosphatase 89 Total Protein 7.7 Albumin 2.8 L HIV 1&2 Ag/Ab, 4th Gen Negative Time Spent with Patient Time Spent with Patient: 25-34 minutes Time was spent: preparing to see the patient(eg.review tests), obtaining and/or reviewing separately otained hiistory, ordering medications,tests, procedures, referring, communicating with other health care team coordinator scheduler, indepentently interpreting results, counseling the patient and care coordination
[2024-08-27 11:12] VITALS: BP 122/81; PULSE 74; RESP 12; TEMP 36.4; O2SAT 96
[2024-08-27] MEDS: Acetaminophen 325 MG TAB PO ×2 (14:20→20:38)
[2024-08-27 15:16] VITALS: BP 114/83; PULSE 68; RESP 15; TEMP 36.8; O2SAT 97
[2024-08-27 20:35] VITALS: BP 126/80; PULSE 70; RESP 18; TEMP 36.9; O2SAT 98
[2024-08-27] MEDS: Linezolid 600 MG TAB PO (20:38)
[2024-08-28 00:35] VITALS: BP 112/83; PULSE 68; RESP 20; TEMP 36.6; O2SAT 98
[2024-08-28 03:35] VITALS: BP 122/85; PULSE 69; RESP 20; TEMP 36.5; O2SAT 99
[2024-08-28 06:52] LABS: Abs Immature Grans 0.18 10^3/uL (0.0-0.06); Absolute Basophil Count 0.07 10^3/uL (0.0-0.2); Absolute Eosinophil Count 0.33 10^3/uL (0.0-0.7); Absolute Lymphocyte Count 2.21 10^3/uL (1.2-3.4); Absolute Monocyte Count 0.92 10^3/uL (0.1-0.8); Absolute Neutrophil Count 5.75 10^3/uL (1.2-6.7); Basophils % 0.7 %; Eosinophils % 3.5 %; HCT 37.2 % (40.0-50.0); HGB 11.9 g/dL (13.5-17.5); Immature Grans % 1.9 %; Lymphocytes % 23.4 %; MCH 28.7 pg (27.0-33.0); MCV 90 fL (80-95); MPV 9.6 fL (8.0-11.0); Monocytes % 9.7 %; Neutrophils % 60.8 %; Platelet Count 408 10^3/uL (130-400); RBC 4.15 10^6/uL (4.36-5.78); RDW 13.7 % (11.8-14.1); RDW-SD 45.2 fL; WBC 9.46 10^3/uL (4.4-10.8)
[2024-08-28] MEDS: MORPHine 2 MG/ML SYR 1 MG IVP (06:53)
[2024-08-28] MEDS: Normal Saline Flush 10 ML SYR IVP (06:53)
[2024-08-28] MEDS: Acetaminophen 325 MG TAB PO (06:53)
[2024-08-28 07:45] VITALS: BP 120/81; PULSE 67; RESP 16; TEMP 35.7; O2SAT 96
[2024-08-28 07:48] LABS: ALT 35 U/L (16-63); AST 23 U/L (15-37); Albumin 2.9 g/dL (3.4-5.0); Alkaline Phosphatase 91 U/L (46-116); Anion Gap 6.8 mmol/L (3-11); BUN 18 mg/dL (7-18); Bilirubin, Total 0.4 mg/dL (0.2-1.0); CO2 27.2 mmol/L (21.0-32.0); CREATININE 1.1 mg/dL (0.70-1.30); Calcium 9.5 mg/dL (8.5-10.1); Chloride 104 mmol/L (98-107); Estimated GFR 80.77 (mL/min/1.73m2); Glucose 93 mg/dL (74-106); Potassium 4.4 mmol/L (3.5-5.1); Sodium 138 mmol/L (136-145); Total Protein 7.9 g/dL (6.4-8.2)
[2024-08-28] MEDS: Tiotropium/Olodaterol 10 PUFF INHALER 2 PUFF IH (08:07)
[2024-08-28] MEDS: Buprenorphine/Naloxone 8 mg/2 mg FILM 2 EACH SL (09:41)
--- NOTE | 2024-08-28 09:41 | W.PM.DS.N ---
Date of service: 08/28/24 Time of Service: 09:42 DS: Diagnosis Discharge Diagnosis (1) Cellulitis: Status: Resolved (2) Hypertension: (3) Opioid use disorder, moderate, dependence: (4) GERD (gastroesophageal reflux disease): (5) COPD (chronic obstructive pulmonary disease): (6) DVT prophylaxis: Status: Resolved (7) Hypercoagulable state: Status: Acute Discharge Plan Disposition [facility] [place] Condition: Improving Discharge Details Reason For Visit: Failed outpatient therapy cellulitis Admit Date/Time: 08/22/24 12:37 Admit Provider: Kulwinder Pope Attending Provider: Kulwinder Pope Primary Care Provider: Unknown,Unknown Hospital Course Hospital Course: Patient was admitted for the below mentioned reasons. Was started on Vanco and Zosyn which improved his signs and symptoms of cellulitis. On the I recommended discharge and he will go home with a prescription for linezolid. Patient has an allergy to sulfas and failed clindamycin. Concerning his outpatient failure to appropriate antibiotics I did check an HIV as well as an A1c and both essentially negative. While he was here he also had bilateral lower extremity ultrasounds done due to pain in his lower extremities as well as history of hypercoagulable state and these were also negative. Will send over linezolid for 7 more days he has been discharged in stable condition. History of Present Illness Chief Complaint: worsening cellulitis Narrative: 54-year-old incarcerated gentleman with a past medical history of hypertension, opiate use disorder on Suboxone, hypertension, GERD, COPD presents back to the emergency department after being discharged 08/21/2024 with worsening left lower extremity cellulitis. During previous hospitalization patient was treated for severe sepsis secondary to cellulitis. He was febrile, tachycardic had leukocytosis all of which significantly improved while on vancomycin and cefepime. Patient has documented allergy to sulfa medications and was discharged on p.o. clindamycin. However, after only missing about 1 dose of what would have been IV Vanco and cefepime upon returning to [facility], he reported worsening of redness swelling and pain of his left lower extremity including streaking up his left thigh. He also said he had fever prior to arrival for which he was given Tylenol. In the emergency department the patient was noted as having normal vital signs, normal CBC and CMP but did continue to have elevated CRP of 16 which is similar to previous presentation. He was also noted as having worsening redness and swelling of his left lower extremity with streaks up his leg. Emergency room provider also reached out to [facility] in which the patient is incarcerated and stated that they had been giving his 450 mg p.o. clindamycin as prescribed and they believe the patient was taking the medication as recommended. At which time emergency room PA initiated vancomycin and cefepime paged hospitalist for admission for patient with failed outpatient p.o. therapy for cellulitis assessment and plan (1) Cellulitis: Status: Resolved Assessment and plan: -Rapid worsening of cellulitis within 24 hours of discharge - Patient had been on Vanco and Zosyn prior to discharge and was reportedly taking the p.o. clindamycin that was prescribed - Will go back to vancomycin and Zosyn - Follow-up blood culture results - On this admission though, patient does not meet criteria for sepsis as he does not have a leukocytosis, tachycardia or tachypnea, though did have a reported fever of 103 ?F at the [facility] prior to presentation. - During this hospitalization though, it is recommended that once it is determined patient is ready for p.o. antibiotic regimen that he be observed for an additional 24 hours prior to discharge (2) Hypertension: Assessment and plan: -Continue outpatient therapy (3) Opioid use disorder, moderate, dependence: Assessment and plan: -Continue suboxone (4) GERD (gastroesophageal reflux disease): Assessment and plan: -continue PPI (5) COPD (chronic obstructive pulmonary disease): Assessment and plan: -without acute exacerbation -continue LAMA and albuterol prn (6) DVT prophylaxis: Status: Resolved Assessment and plan: enoxaparin Home Meds and New Rx's Prescriptions: New linezolid 600 mg Tablet 600 mg PO BID 7 Days Qty: 14 0RF Continued ondansetron 4 mg tablet,disintegrating 4 mg PO BID PRN dabigatran etexilate [Pradaxa] 150 mg capsule 150 mg PO BID Eucerin Advanced Repair Cream 1 applic topical BID Patient Comments: Apply cream on lower legs BID umeclidinium-vilanterol [Anoro Ellipta] 62.5-25 mcg/actuation blister with device 1 inh inhalation DAILY pantoprazole 40 mg tablet,delayed release (DR/EC) 40 mg PO DAILY acetaminophen 325 mg capsule 650 mg PO BID PRN buprenorphine-naloxone 2-0.5 mg film 2 film sublingual DAILY Rx Instructions: place 1 strip/tab under (each) side of tongue buprenorphine-naloxone 8-2 mg film 2 film sublingual DAILY Rx Instructions: place 1 strip/tab under (each) side of tongue amlodipine 10 mg tablet 10 mg PO DAILY metoprolol succinate 100 mg tablet extended release 24 hr 100 mg PO DAILY montelukast 10 mg tablet 10 mg PO DAILY lisinopril 30 mg tablet 30 mg PO DAILY albuterol sulfate 90 mcg/actuation HFA aerosol inhaler 1 inh inhalation 6XD PRN Discontinued clindamycin HCl [Cleocin HCl] 150 mg capsule 450 mg PO TID 12 Days Qty: 108 0RF Discharge Instructions Activity:: Activity as Tolerated Equipment/Supplies:: No Equipment Needed Diet:: As Tolerated Discharge Orders Discharge Orders: Discharge Order (Routine); Ordered 08/28/24 Ordered By: Alec Pan DS: Summary Time Spent with Patient providing and/or coordinating discharge services: Less than 30 minutes Status at Discharge Functional status at discharge: independent ambulation Overall status at discharge: patient is progressing back to baseline Mental Status: mental status grossly normal Speech and Movement: speech and movement normal Mood: congruent mood Affect: normal affect Quality:SDOH Health Related Social Needs: Health related social needs risk of homeless material hardship Health related social needs details pt resides in [facility] Health related social needs details: pt resides in [facility] Exam Narrative Exam Narrative: HEENT-NCAT MMM EOMI NECK-NO LAD NO JVD CV-RRR NO MRG LUNGS-CTAB NO AMU ABD-SNTNDBSA EST-LEFT KNEE BRUISE OTW DECREASING ERYTHEMA AND EDEMA OF LLE Psych Mental Status: mental status grossly normal Speech and Movement: speech and movement normal Mood: congruent mood Affect: normal affect DS: Data Vitals/I&O Vitals and I&O: Vital Signs Temperature 35.7 C L 08/28/24 07:45 Temperature Source Tympanic 08/28/24 07:45 Pulse 67 08/28/24 07:45 Pulse Rhythm Regular 08/22/24 13:25 Respiratory Rate 16 08/28/24 07:45 Respiratory Effort Short of Breath 08/22/24 13:25 Respiratory Depth Normal 08/22/24 13:25 Respiratory Pattern Normal 08/22/24 13:25 Blood Pressure 120/81 06/19/25 07:45 Blood Pressure Mean 94 08/28/24 07:45 Blood Pressure Position Sitting 08/22/24 11:14 Pulse Oximetry 96 08/28/24 07:45 Oxygen Delivery Method Room Air 08/28/24 07:45 Oxygen Flow Rate 0 08/28/24 07:45 Pain Level 7 08/28/24 07:45 Comment temp rechecked, RN notified 08/22/24 15:27 Intake & Output 08/27/24 08/27/24 08/28/24 11:59 23:59 11:59 Intake Total 470 / 730 260 / 730 840 / 840 Balance 470 / 730 260 / 730 840 / 840 Intake: IV 250 / 510 260 / 510 Oral 220 / 220 840 / 840 Other: Comment void x 1 pt has voided independently in the room Data Completed and Pending Labs on day of discharge: Labs from last 24 hours 08/28/24 06:33 WBC 9.46 RBC 4.15 L Hgb 11.9 L Hct 37.2 L MCV 90 MCH 28.7 MCHC 32.0 RDW 13.7 Plt Count 408 H MPV 9.6 Immature Gran % 1.9 Neutrophils % 60.8 Lymphocytes % 23.4 Monocytes % 9.7 Eosinophils % 3.5 Basophils % 0.7 Nucleated RBC % 0.0 Absolute Neutrophils 5.75 Absolute Lymphocytes 2.21 Absolute Monocytes 0.92 H Absolute Eosinophils 0.33 Absolute Basophils 0.07 Sodium 138 Potassium 4.4 Chloride 104 Carbon Dioxide 27.2 Anion Gap 6.8 BUN 18 Creatinine 1.1 Est GFR (CKD-EPI 2020) 80.77 Glucose 93 Calcium 9.5 Total Bilirubin 0.4 AST 23 ALT 35 Alkaline Phosphatase 91 Total Protein 7.9 Albumin 2.9 L PFSH All Active Problems (Updated 08/25/24 @ 11:18 by Alec Pan MD) Hypercoagulable state (Acute) Medical History H/O pyloric stenosis GERD (gastroesophageal reflux disease) COPD (chronic obstructive pulmonary disease) Opioid use disorder, moderate, dependence on buprenorphine/naloxone Hypertension Surgical History H/O pyloromyotomy as Family History Father Heart disease Cancer Mother Cancer Lung Social History Smoking/Tobacco Use Status: Former Tobacco Use Quit Date: 11/15/23 Tobacco: How many years used: 30 Smoking risk assessment performed?: Yes Alcohol Intake: former Drug use: Never Substance use type: does not use Details: no h/o IVDU Housing: other Additional Social history: currently encarcerated Time Spent with Patient Time Spent with Patient: <45 minutes Time was spent: preparing to see the patient(eg.review tests), obtaining and/or reviewing separately otained hiistory, ordering medications,tests, procedures, referring, communicating with other health clinical manager home care, indepentently interpreting results, counseling the patient and care coordination
[2024-08-28] MEDS: Metoprolol CR 100 MG TABCR PO (09:42)
[2024-08-28] MEDS: Buprenorphine/Naloxone 2 mg/0.5 mg FILM 2 EACH SL (09:42)
[2024-08-28] MEDS: Lisinopril 10 MG TAB 30 MG PO (09:42)
[2024-08-28] MEDS: Montelukast 10 MG TAB PO (09:42)
[2024-08-28] MEDS: amLODIPine 10 MG TAB PO (09:42)
[2024-08-28] MEDS: Pantoprazole 40 MG TABCR PO (09:43)
[2024-08-28] MEDS: Linezolid 600 MG TAB PO (09:43)
--- NOTE | 2024-08-28 09:49 | CMDISCH_ITS ---
Date of service: 08/28/24 Time of Service: 10:54 LACE Index Scoring Tool Questions: Length of Stay (in days): 4 - 6 Was the patient admitted via the E.D.?: Yes E.D. Visits: 3 Answers: Total Score: 10 Risk of Readmission: High Risk Care Management Discharge Plan Reason for Hospitalization: Failed outpatient therapy cellulitis Discharge Plan: Saroj will return to the [facility]. He will follow up with facility providers and plan of care and transport with corrections staff. [facility] send him with a 3 day supply of linezolid, at request of [facility]. CM faxed discharge summary to [facility]. Patient/Family Education Needs: Review of discharge instructions, activity, limitations, and goals of care. Discuss Ask Me Three. SDOH Health Related Social Needs: Health related social needs risk of homeless material hardship Health related social needs details pt resides in [facility] Health related social needs details: pt resides in [facility]
== END 2024-08-28 10:49 | DRG 603 ==
LOC: ER 11:22 → MS 13:17
PROVIDERS: Admitting Provider Family Medicine; Emergency Provider Physician Assistant; Responsible Provider Hospitalist; Visit Provider Family Medicine
DX: L03.116 Cellulitis of left lower limb (principal); F11.20 Opioid dependence, uncomplicated; D68.59 Other primary thrombophilia; I10 Essential (primary) hypertension; J44.9 Chronic obstructive pulmonary disease, unspecified; K21.9 Gastro-esophageal reflux disease without esophagitis; Z88.2 Allergy status to sulfonamides; Z87.891 Personal history of nicotine dependence; Z79.899 Other long term (current) drug therapy
CPT/HCPCS: 00123; 36415; 80048; 80053; 85027; 85652; 87040; 87389; 87641; 94640; 96365; 99285; 80202; 83036; 83605; 83735; 85025; 86140; 93970; 94664; 99223; 99232; 99233; 99238; J0692; J1938; J2270; J3372; J3480; J3490

== ENCOUNTER 2024-09-16 08:05 | Observation (INO) | payer OTHER, SELFPAY ==
[2024-09-16 08:14] VITALS: BP 153/86; PULSE 72; RESP 16; TEMP 36.7; O2SAT 97
[2024-09-16 08:17] VITALS: BP 153/86; PULSE 72; RESP 16; TEMP 36.7; O2SAT 97
--- NOTE | 2024-09-16 08:44 | W.ED.GENAD ---
Discharge Plan Disposition Patient Disposition: Admit to [facility] Discharge Details Clinical Impression: Left leg swelling Admit Date/Time: 09/16/24 11:50 Admit Provider: Agus Rodriguez Attending Provider: Agus Rodriguez Primary Care Provider: Jovita Bond ED Provider: Yun Menchaca Discharge Data Discharge Date/Time-TO BE ENTERED AT DEPARTURE: 09/16/24 13:07 HPI General Date/Time Provider Initiated Documentation: 09/16/24 08:24. HPI Narrative: Saroj is a 54-year-old male with history of blood clots presenting with persistent cellulitis that is not responding to outpatient treatment. Initially noticed mild redness on the reed approximately 5 weeks ago, progressively worsened over a month to include swelling in ankle/foot. Denies any known inciting incidents, no prior infections, scratches, or injuries. He has been on antibiotics for 5 weeks, recently hospitalized for 10 days, discharged on 09/27/2024. Responded well to IV antibiotics during hospital stay. Denies associated fevers, chills, or general malaise, change in p.o. intake, change in bowel or bladder function, numbness to toes, knee pain. Past medical history significant for history of unprovoked blood clots in leg and lungs, currently on anticoagulation. Denies history of diabetes, heart issues, or lung problems. Past IV drug use Related Data Home Medications ?Medication ?Instructions ?Recorded ?Confirmed acetaminophen 325 mg capsule 650 mg PO BID PRN 07/02/24 09/16/24 albuterol sulfate 90 mcg/actuation 1 inh inhalation 6XD PRN 07/02/24 09/16/24 aerosol inhaler amlodipine 10 mg tablet 10 mg PO DAILY 07/02/24 09/16/24 buprenorphine 2 mg-naloxone 0.5 mg 2 film sublingual DAILY 07/02/24 09/16/24 sublingual film buprenorphine 8 mg-naloxone 2 mg 2 film sublingual DAILY 07/02/24 09/16/24 sublingual film lisinopril 30 mg tablet 30 mg PO DAILY 07/02/24 09/16/24 metoprolol succinate 100 mg 100 mg PO DAILY 07/02/24 09/16/24 tablet,extended release 24 hr montelukast 10 mg tablet 10 mg PO DAILY 07/02/24 09/16/24 pantoprazole 40 mg tablet,delayed 40 mg PO DAILY 07/02/24 09/16/24 release umeclidinium 62.5 mcg-vilanterol 1 inh inhalation DAILY 07/02/24 09/16/24 25 mcg/actuation powdr for inhalation (Anoro Ellipta) dabigatran etexilate 150 mg 150 mg PO BID 08/22/24 09/16/24 capsule (Pradaxa) emollient combination no.119 1 applic topical BID 08/22/24 09/16/24 (Eucerin Advanced Repair topical cream) ondansetron 4 mg disintegrating 4 mg PO BID PRN 08/22/24 09/16/24 tablet hydrochlorothiazide 12.5 mg capsule 12.5 mg PO DAILY 09/16/24 09/16/24 linezolid 600 mg tablet 600 mg PO BID 09/16/24 09/16/24 Allergies Allergy/AdvReac Type Severity Reaction Status Date / Time codeine Allergy Intermediate Hives Verified 09/16/24 08:16 sulfur dioxide Allergy Intermediate Hives Verified 09/16/24 08:16 General Stated Complaint: Cellulitis CARLOS A: 3 Exam Narrative Exam Narrative: General Appearance: Normal. Patient is alert and oriented, in no acute distress. Vital signs: Within normal limits. Respiratory: Lung sounds clear. Able to speak in full sentences Cardiovascular: Heart sounds normal. Back, Musculoskeletal: Significant erythema and warmth to left lower leg from knee to foot. Full painless range of motion to knee. Ankle mobility limited due to swelling. Faint petechia noted to left ankle. Distal pulses intact. Skin: No skin tears or lesions Psychiatric: Normal. Course Vital Signs Vital signs: Vital Signs Temperature 36.7 C 09/16/24 08:14 Pulse 72 09/16/24 08:14 Respiratory Rate 16 09/16/24 08:14 Blood Pressure 153/86 H 09/16/24 08:14 Pulse Oximetry 97 09/16/24 08:14 Temperature 36.7 C 09/16/24 08:17 Temperature Source Oral 09/16/24 08:17 Pulse 72 09/16/24 08:17 Respiratory Rate 16 09/16/24 08:17 Blood Pressure 153/86 H 09/16/24 08:17 Blood Pressure Position Sitting 09/16/24 08:17 Pulse Oximetry 97 09/16/24 08:17 Oxygen Delivery Method Room Air 09/16/24 08:17 Oxygen Flow Rate 0 09/16/24 08:17 Pain Level 0 09/16/24 08:17 Medical Decision Making Initial Assessment: 54-year-old male with cellulitis in left lower leg for over a month, not improving despite 5 weeks of antibiotics. History of blood clots in leg and lungs. No known history of immunocompromise History and presentation concerning for cellulitis not responding to outpatient treatment, though there may be elements of venous stasis that may be contributory or osteomyelitis. Patient does not meet SIRS criteria. ED Course: - CT lower extremity performed - Labs drawn, including blood cultures I independently interpreted the following tests: CBC reassuring, no leukocytosis, anemia unchanged from baseline. Lactate, CMP, magnesium, and CRP all reassuring. Procalcitonin negative. Sed rate slightly elevated at 30 CT lower extremity performed, diffuse edema consistent with cellulitis, no drainable fluid collection/osteomyelitis/DVT. Discussed case with Dr. Rodriguez, hospitalist. Patient to be admitted for management of treatment resistant cellulitis, though ultrasound will be ordered to rule out DVT Clinical Impression: - Cellulitis - History of blood clots Patient consented to the use of [facility] Imaging Data Radiologic Study: Radiologist's impression: Exam(s) CT LOWER EXTREMITY LT W EXAM: CT LOWER EXTREMITY LT W CLINICAL HISTORY: cellulitis, h/o DVT, failing outpt tx. TECHNIQUE: Imaging Protocol: Axial computed tomography images with coronal and sagittal reformatted images were created and reviewed. CONTRAST MATERIAL: Intravenous: Omnipaque 350 Contrast volume:structured data in ml Contrast route:IV - Oral: yes / no COMPARISON: CT CT LOWER EXTREMITY LT W from 08/18/2024 FINDINGS: SOFT TISSUES: There is a small knee joint effusion noted. There is subcutaneous edema throughout the length of the left calf which increases more distally, but without a distinct focal fluid collection. No evidence of drainable abscess. There is no radiopaque foreign body. There is no gas in the soft tissues. No evidence of focal muscular abnormalities. VASCULAR: No evidence of obvious intraluminal thrombus within the veins of the calf, including the popliteal vein. OSSEOUS: No fractures. No evidence of osteomyelitis. IMPRESSION: Diffuse edema pattern in the calf but without a drainable fluid collection and there is no evidence of radiopaque foreign body nor soft tissue gas No evidence of osteomyelitis. No fractures. Small knee joint effusion incidentally noted. No evidence of obvious DVT in the calf Quality:SDOH Health Related Social Needs: Health related social needs risk of homeless material hardship Health related social needs details pt [place] [facility] [place] [facility] All Active Problems (Updated 09/16/24 @ 17:03 by Yun Martínez) Left leg swelling (Acute) Left leg DVT (Acute) Hypercoagulable state (Acute) Medical History H/O pyloric stenosis GERD (gastroesophageal reflux disease) COPD (chronic obstructive pulmonary disease) Opioid use disorder, moderate, dependence on buprenorphine/naloxone Hypertension Surgical History H/O pyloromyotomy as infant Family History Father Heart disease Cancer Mother Cancer Lung Social History Smoking/Tobacco Use Status: Former Tobacco Use Quit Date: 11/15/23 Tobacco: How many years used: 30 Smoking risk assessment performed?: Yes Alcohol Intake: former Drug use: Never Substance use type: does not use Details: no h/o IVDU Housing: other Additional Social history: currently encarcerated
[2024-09-16 09:52] LABS: Abs Immature Grans 0.01 10^3/uL (0.0-0.06); HCT 35.9 % (40.0-50.0); HGB 12.0 g/dL (13.5-17.5); Immature Grans % 0.2 %; MCH 29.4 pg (27.0-33.0); MCHC 33.4 % (32.0-36.0); MCV 88 fL (80-95); MPV 10.0 fL (8.0-11.0); Platelet Count 203 10^3/uL (130-400); RBC 4.08 10^6/uL (4.36-5.78); RDW 13.3 % (11.8-14.1); RDW-SD 42.9 fL; WBC 6.28 10^3/uL (4.4-10.8)
[2024-09-16 09:56] LABS: ESR 30 mm/hr (0-20)
[2024-09-16 10:16] LABS: C-Reactive Protein < 0.50 mg/dL (<or=0.5)
[2024-09-16 10:22] LABS: ALT 30 U/L (16-63); AST 23 U/L (15-37); Albumin 3.9 g/dL (3.4-5.0); Alkaline Phosphatase 94 U/L (46-116); Anion Gap 9.2 mmol/L (3-11); BUN 16 mg/dL (7-18); Bilirubin, Total 0.5 mg/dL (0.2-1.0); CO2 29.8 mmol/L (21.0-32.0); Calcium 9.5 mg/dL (8.5-10.1); Chloride 103 mmol/L (98-107); Estimated GFR 66.10 (mL/min/1.73m2); Glucose 91 mg/dL (74-106); Magnesium 2.1 mg/dL (1.8-2.4); Potassium 4.0 mmol/L (3.5-5.1); Sodium 142 mmol/L (136-145); Total Protein 8.3 g/dL (6.4-8.2)
--- NOTE | 2024-09-16 10:29 | DI.CT_ITS ---
Exam(s) CT LOWER EXTREMITY LT W EXAM: CT LOWER EXTREMITY LT W CLINICAL HISTORY: cellulitis, h/o DVT, failing outpt tx. TECHNIQUE: Imaging Protocol: Axial computed tomography images with coronal and sagittal reformatted images were created and reviewed. CONTRAST MATERIAL: Intravenous: Omnipaque 350 Contrast volume:structured data in ml Contrast route:IV - Oral: yes / no COMPARISON: CT CT LOWER EXTREMITY LT W from 08/18/2024 FINDINGS: SOFT TISSUES: There is a small knee joint effusion noted. There is subcutaneous edema throughout the length of the left calf which increases more distally, but without a distinct focal fluid collection. No evidence of drainable abscess. There is no radiopaque foreign body. There is no gas in the soft tissues. No evidence of focal muscular abnormalities. VASCULAR: No evidence of obvious intraluminal thrombus within the veins of the calf, including the popliteal vein. OSSEOUS: No fractures. No evidence of osteomyelitis. IMPRESSION: Diffuse edema pattern in the calf but without a drainable fluid collection and there is no evidence of radiopaque foreign body nor soft tissue gas No evidence of osteomyelitis. No fractures. Small knee joint effusion incidentally noted. No evidence of obvious DVT in the calf RADIATION DOSE DELIVERED: 506.88mGy.cm Total DLP DATA REPOSITORY: All CT scans at this facility are submitted to the National Radiology Data Registry (NRDR) Dose Index Registry (DIR) with the [employer] ([employer]). RADIATION OPTIMIZATION: All CT scans at this facility use at least one of these dose optimization techniques: automated exposure control; mA and/or kV adjustment per patient size (includes targeted exams where dose is matched to clinical indication); or iterative reconstruction.
[2024-09-16] MEDS: Normal Saline - Diluent 50 ML VIAL IJ (10:31)
[2024-09-16] MEDS: Omnipaque 350 MG/ML 100 ML BTL IJ (10:32)
--- NOTE | 2024-09-16 11:33 | W.PM.HP.N ---
Date of service: 09/16/24 Time of Service: 11:33 Assessment and Plan Assessment and plan (1) Cellulitis: Status: Resolved Assessment and plan: Just finished a prolong course of antibiotics as per HPI No septic On vancomycin and Zosyn Blood cultures DDx of left lower ext. DVT r/o as per CT LLE results this PM (2) Hypertension: Assessment and plan: On outpatient therapy (3) Opioid use disorder, moderate, dependence: Assessment and plan: -On outpatient suboxone (4) GERD (gastroesophageal reflux disease): Assessment and plan: Ongoing PPI (5) COPD (chronic obstructive pulmonary disease): Assessment and plan: Stable w/o exacerbation Continue outpatient therapy with LAMA and albuterol prn (6) Hypercoagulable state: Status: Acute Assessment and plan: Ongoing home dose Pradaxa 2/2 multiple thrombotic events in the past (7) Left leg DVT: Status: Acute Assessment and plan: Imaging completed and report pending (8) DVT prophylaxis: Status: Resolved Assessment and plan: On pradaxa chronic Discussed with Dr. Rodriguez History of Present Illness History of Present Illness Chief Complaint: left leg erythema and swelling Narrative: This 54-year-old gentleman with history of HTN, opioid use disorder on burprenorphine, HTN, and COPD, GERD, MRSA positive, unprovoked DVT/PE currently on anticoagulation with Pradaxa presented in custody from the local nursing home with worsening left leg swelling and redness to the ED. The patient had similar presentations from June 2024 including admissions X2 in August with discharged on Linezolid. The work-up in the ED was negative for sepsis. Denies fever, chills , dizziness, chest pain, shortness of breath , GI and urinary symptoms. Work-up was negative for leukocytosis; bloodwork was unremarkable. The patient was admitted to the hospitalist team for failed outpatient antibiotic therapy and IV antibiotics.Vancomycin was initiated in the ED. Full code status confirmed. Review of Systems All systems reviewed & are unremarkable except as noted in HPI and below PFSH All Active Problems (Updated 09/16/24 @ 17:03 by Yun Martínez) Left leg swelling (Acute) Left leg DVT (Acute) Hypercoagulable state (Acute) Medical History H/O pyloric stenosis GERD (gastroesophageal reflux disease) COPD (chronic obstructive pulmonary disease) Opioid use disorder, moderate, dependence on buprenorphine/naloxone Hypertension Surgical History H/O pyloromyotomy as infant Family History Father Heart disease Cancer Mother Cancer Lung Social History Smoking/Tobacco Use Status: Former Tobacco Use Quit Date: 11/15/23 Tobacco: How many years used: 30 Smoking risk assessment performed?: Yes Alcohol Intake: former Drug use: Never Substance use type: does not use Details: no h/o IVDU Housing: other Additional Social history: currently encarcerated Meds Allergies and Home Medications Allergies Allergy/AdvReac Type Severity Reaction Status Date / Time codeine Allergy Intermediate Hives Verified 09/16/24 08:16 sulfur dioxide Allergy Intermediate Hives Verified 09/16/24 08:16 Home Medications ?Medication ?Instructions ?Recorded ?Confirmed ?Type acetaminophen 325 mg capsule 650 mg PO BID PRN 07/02/24 09/16/24 History albuterol sulfate 90 mcg/actuation 1 inh inhalation 6XD PRN 07/02/24 09/16/24 History aerosol inhaler amlodipine 10 mg tablet 10 mg PO DAILY 07/02/24 09/16/24 History buprenorphine 2 mg-naloxone 0.5 mg 2 film sublingual DAILY 07/02/24 09/16/24 History sublingual film buprenorphine 8 mg-naloxone 2 mg 2 film sublingual DAILY 07/02/24 09/16/24 History sublingual film lisinopril 30 mg tablet 30 mg PO DAILY 07/02/24 09/16/24 History metoprolol succinate 100 mg 100 mg PO DAILY 07/02/24 09/16/24 History tablet,extended release 24 hr montelukast 10 mg tablet 10 mg PO DAILY 07/02/24 09/16/24 History pantoprazole 40 mg tablet,delayed 40 mg PO DAILY 07/02/24 09/16/24 History release umeclidinium 62.5 mcg-vilanterol 1 inh inhalation DAILY 07/02/24 09/16/24 History 25 mcg/actuation powdr for inhalation (Anoro Ellipta) dabigatran etexilate 150 mg 150 mg PO BID 08/22/24 09/16/24 History capsule (Pradaxa) emollient combination no.119 1 applic topical BID 08/22/24 09/16/24 History (Eucerin Advanced Repair topical cream) ondansetron 4 mg disintegrating 4 mg PO BID PRN 08/22/24 09/16/24 History tablet hydrochlorothiazide 12.5 mg capsule 12.5 mg PO DAILY 09/16/24 09/16/24 History linezolid 600 mg tablet 600 mg PO BID 09/16/24 09/16/24 History Exam Narrative Exam Narrative: Constitutional The patient is without acute distress, non-icteric sclera Neck: No JVD Neuro:alert and oriented to self, person, place time and situation. No neurological focal deficit Resp: Unlabored breathing, clear lungs bilaterally Cardio: regular rhythm, S1, S2, no murmur, bilateral radial and dorsalis pedis pulses are positive, palpable GI: Abdomen is not distended, soft and non tender, bowel sounds are present : CVA, no bladder distension Back/spine/Pelvis: No back tenderness, normal alignment Integumentary: No skin lesions or rash Extremities: erythema to LLE, pitting edema 1+, no pain/tingling, no weakness Psych: RASS 0, congruent mood and normal affect. Results Labs 09/16/24 09:40 09/16/24 09:40 Labs: Laboratory Results - last 24 hr 09/16/24 09:40 WBC 6.28 RBC 4.08 L Hgb 12.0 L Hct 35.9 L MCV 88 MCH 29.4 MCHC 33.4 RDW 13.3 Plt Count 203 MPV 10.0 Immature Gran % 0.2 Neutrophils % 52.9 Lymphocytes % 31.8 Monocytes % 8.6 Eosinophils % 5.9 Basophils % 0.6 Nucleated RBC % 0.0 Absolute Neutrophils 3.32 Absolute Lymphocytes 2.00 Absolute Monocytes 0.54 Absolute Eosinophils 0.37 Absolute Basophils 0.04 ESR 30 H Sodium 142 Potassium 4.0 Chloride 103 Carbon Dioxide 29.8 Anion Gap 9.2 BUN 16 Creatinine 1.3 Est GFR (CKD-EPI 2020) 66.10 Glucose 91 Calcium 9.5 Magnesium 2.1 Total Bilirubin 0.5 AST 23 ALT 30 Alkaline Phosphatase 94 C-Reactive Protein < 0.50 Total Protein 8.3 H Albumin 3.9 Last Vital Signs Temp 36.7 C 09/16/24 08:17 Pulse 72 09/16/24 08:17 Resp 16 09/16/24 08:17 BP 153/86 H 09/16/24 08:17 Pulse Ox 97 09/16/24 08:17 Time Spent Time spent with Patient: >75 minutes Time was spent: preparing to see the patient(eg.review tests), obtaining and/or reviewing separately otained hiistory, ordering medications,tests, procedures, referring, communicating with other health managed care specialist, indepentently interpreting results, counseling the patient and care coordination
[2024-09-16 12:34] VITALS: BP 148/103; PULSE 56; O2SAT 99
[2024-09-16] MEDS: VANCOMYCIN/WATER (PEG) 2 GM/400 ML BAG IVPB (12:34)
--- NOTE | 2024-09-16 13:02 | W.PC.ACHO ---
Registration Status: REG ER Primary Language: Preferred Language: Occitan ED Information & Data Chief Complaint Cellulitis 09/16/24 08:45 Triage Note Pt recently here for IV 09/16/24 08:14 antibioics for cellulitis of left leg- sent home with PO antibiotics but the leg is flaring up again- still on PO antibiotics currently Medical / Surgical History (Last Reviewed 08/22/24 @ 14:23 by YANNI Peña) H/O pyloric stenosis GERD (gastroesophageal reflux disease) COPD (chronic obstructive pulmonary disease) Opioid use disorder, moderate, dependence Hypertension (Last Reviewed 08/22/24 @ 14:23 by AYNNI Peña) H/O pyloromyotomy Most Recent Vital Signs Temperature 36.7 C 09/16/24 08:17 Temperature Source Oral 09/16/24 08:17 Pulse 72 09/16/24 08:17 Respiratory Rate 16 09/16/24 08:17 Blood Pressure 153/86 H 09/16/24 08:17 Blood Pressure Position Sitting 09/16/24 08:17 Pulse Oximetry 97 09/16/24 08:17 Oxygen Delivery Method Room Air 09/16/24 08:17 Oxygen Flow Rate 0 09/16/24 08:17 Pain Level 0 09/16/24 08:17 Allergies codeine Allergy (Intermediate, Verified 09/16/24 08:16) Hives sulfur dioxide Allergy (Intermediate, Verified 09/16/24 08:16) Hives Precautions Isolation Standard precaution 09/16/24 08:15 Active Medications Generic Name Dose Route Start Last Admin Trade Name Freq PRN Reason Stop Dose Admin Vancomycin/PEG/NADA/Lysine/Water 2 gm in 400 mls @ 200 mls/hr 09/16/24 12:30 09/16/24 12:34 Vancocin Injection IVPB 09/16/24 14:29 200 mls/hr ONCE ONE Administration Iohexol 100 ml 09/16/24 10:45 09/16/24 10:32 Omnipaque 350 Mg/Ml 100 Ml Btl IJ 10/16/24 23:59 100 ml DIRECTED SAMEER Administration Sodium Chloride 50 ml 09/16/24 10:45 09/16/24 10:31 Normal Saline - Diluent 50 Ml Vial IJ 50 ml .FOR DI USE SAMEER Administration IV IV Catheter Type [Right Saline Lock Antecubital] IV Catheter Gauge [Right 18 Antecubital] Diagnostics 09/16/24 09/16/24 Range/Units 11:50 09:40 WBC 6.28 (4.4-10.8) 10^3/uL RBC 4.08 L (4.36-5.78) 10^6/uL Hgb 12.0 L (13.5-17.5) g/dL Hct 35.9 L (40.0-50.0) % MCV 88 (80-95) fL MCH 29.4 (27.0-33.0) pg MCHC 33.4 (32.0-36.0) % RDW 13.3 (11.8-14.1) % Plt Count 203 (130-400) 10^3/uL MPV 10.0 (8.0-11.0) fL Immature Gran % 0.2 % Neutrophils % 52.9 % Lymphocytes % 31.8 % Monocytes % 8.6 % Eosinophils % 5.9 % Basophils % 0.6 % Nucleated RBC % 0.0 (0.0-0.3) % Absolute Neutrophils 3.32 (1.2-6.7) 10^3/uL Absolute Lymphocytes 2.00 (1.2-3.4) 10^3/uL Absolute Monocytes 0.54 (0.1-0.8) 10^3/uL Absolute Eosinophils 0.37 (0.0-0.7) 10^3/uL Absolute Basophils 0.04 (0.0-0.2) 10^3/uL ESR 30 H (0-20) mm/hr VBG Lactate Pending Sodium 142 (136-145) mmol/L Potassium 4.0 (3.5-5.1) mmol/L Chloride 103 (98-107) mmol/L Carbon Dioxide 29.8 (21.0-32.0) mmol/L Anion Gap 9.2 (3-11) mmol/L BUN 16 (7-18) mg/dL Creatinine 1.3 (0.70-1.30) mg/dL Est GFR (CKD-EPI 2020) 66.10 (mL/min/1.73m2) Glucose 91 (74-106) mg/dL Calcium 9.5 (8.5-10.1) mg/dL Magnesium 2.1 (1.8-2.4) mg/dL Total Bilirubin 0.5 (0.2-1.0) mg/dL AST 23 (15-37) U/L ALT 30 (16-63) U/L Alkaline Phosphatase 94 (46-116) U/L C-Reactive Protein < 0.50 (<or=0.5) mg/dL Total Protein 8.3 H (6.4-8.2) g/dL Albumin 3.9 (3.4-5.0) g/dL Procalcitonin Pending 09/16/24 10:10 Blood Culture - Pending Blood 09/16/24 09:40 Blood Culture - Pending Blood Intake and Output - 24 Hour Total 09/16/24 08:05 thru 09/16/24 09:44 Intake Total 10 Balance 10 Weight 112.491 kg Intake: IV 10 Falls Risk Assessment History of Falls No History 09/16/24 08:35 Fall Total Score 0 09/16/24 08:35 Level of Risk Standard/Low Risk 09/16/24 08:35 Problems (Last Reviewed 08/22/24 @ 14:23 by YANNI Peña) Left leg DVT (Acute) Hypercoagulable state (Acute) v v v v v v v v v Sending and/or Receiving Nurses: Please use comment section below to note any information pertinent to the patient hand-off not included above. Information / Comments: Report received from:pina
[2024-09-16 13:13] VITALS: BP 158/95; PULSE 60; RESP 16; TEMP 36.1; O2SAT 99
[2024-09-16 13:43] LABS: Procalcitonin < 0.10 ng/mL
[2024-09-16] MEDS: PIPERACILLIN/TAZO 4.5 GM in Normal Saline 100 ML IVPB ×2 (14:35→20:36)
[2024-09-16 19:22] VITALS: BP 149/73; PULSE 63; RESP 18; TEMP 36.7; O2SAT 98
[2024-09-16 19:31] LABS: Vancomycin, Random 18.8 ug/mL
[2024-09-16] MEDS: Normal Saline Flush 10 ML SYR IVP (20:37)
[2024-09-16] MEDS: VANCOMYCIN/WATER (PEG) 1.5 GM/300 ML BAG IVPB (23:13)
[2024-09-17] MEDS: PIPERACILLIN/TAZO 4.5 GM in Normal Saline 100 ML IVPB ×4 (03:03→21:20)
[2024-09-17 07:32] LABS: Abs Immature Grans 0.01 10^3/uL (0.0-0.06); HCT 35.5 % (40.0-50.0); HGB 11.7 g/dL (13.5-17.5); Immature Grans % 0.2 %; MCH 28.9 pg (27.0-33.0); MCHC 33.0 % (32.0-36.0); MCV 88 fL (80-95); MPV 10.6 fL (8.0-11.0); Platelet Count 194 10^3/uL (130-400); RBC 4.05 10^6/uL (4.36-5.78); RDW 13.2 % (11.8-14.1); RDW-SD 41.7 fL; WBC 4.95 10^3/uL (4.4-10.8)
[2024-09-17 07:37] LABS: Anion Gap 10.6 mmol/L (3-11); BUN 17 mg/dL (7-18); CO2 27.4 mmol/L (21.0-32.0); Calcium 9.3 mg/dL (8.5-10.1); Chloride 104 mmol/L (98-107); Estimated GFR 60.47 (mL/min/1.73m2); Glucose 88 mg/dL (74-106); Magnesium 2.1 mg/dL (1.8-2.4); Potassium 3.9 mmol/L (3.5-5.1); Sodium 142 mmol/L (136-145)
[2024-09-17 07:59] VITALS: BP 120/80; PULSE 58; RESP 14; TEMP 36; O2SAT 97
[2024-09-17] MEDS: Tiotropium/Olodaterol 10 PUFF INHALER 2 PUFF IH (08:34)
[2024-09-17] MEDS: Buprenorphine/Naloxone 8 mg/2 mg FILM 2 EACH SL (08:38)
[2024-09-17] MEDS: Buprenorphine/Naloxone 2 mg/0.5 mg FILM 2 EACH SL (08:39)
[2024-09-17] MEDS: Lisinopril 10 MG TAB 30 MG PO (08:40)
[2024-09-17] MEDS: Pantoprazole 40 MG TABCR PO (08:40)
[2024-09-17] MEDS: amLODIPine 10 MG TAB PO (08:40)
[2024-09-17] MEDS: hydroCHLOROthiazide 12.5 MG TAB PO (08:40)
[2024-09-17] MEDS: Montelukast 10 MG TAB PO (08:40)
[2024-09-17] MEDS: Metoprolol CR 100 MG TABCR PO (08:40)
[2024-09-17] MEDS: Normal Saline Flush 10 ML SYR IVP ×2 (08:41→21:23)
--- NOTE | 2024-09-17 08:47 | INITIAL_ITS ---
Date of service: 09/17/24 Time of Service: 08:47 Care Management Initial Assmt Initial Assessment Reason for Hospitalization: cellulitis Functional Status/Living Situation Patient Presentation: Saroj was admitted with cellulitis and sepsis and is receiving IV antibiotics.This is his 3rd admission for the same problem in the last month. Saroj explained that while it is slowly omproving, it seems to have reached a plateau and won't completely heal. It is hoped that another course of IV antibiotics may be adequate to heal the leg. Saroj is originally from [place]. He is and has 2 daughters that live locally and that he is close to. He is a contractor/builder by occupation. Saroj is independent at baseline and does not need to use a walker or cane. Town of Residence: [place] Resides with: Other (incarcerated) Significant Other/Family: Local Employment Status: Unemployed Instrumental Activities of Daily Living (ADLs): Independent Physical Functioning/Mobility Assistive Device: none Advance Directives Advance Directives: Do you have an Advance Directive: N , 08:56 AD On File at [facility]: N 11/02/16, 09:34 Date Asked 09/16/24 09/16/24, 08:15 AD Date Reviewed COLST On File at [facility] COLST Date Scanned Code Status Resuscitation Status Full Code Portal Pt does not currently have a portal and education provided: Yes Insurance Coverage/Financial Issues Insurance: [facility] Care Team Visit Care Team Role Provider Type Jacqueline Chu APRN MD [facility] STAFF PHYSICIAN Jovita Waters [facility] Primary Care Provider NON-[facility] STAFF PHYSICIAN Yun Martínez Emergency Provider NURSE PRACTITIONER Agus Rodriguez MD Admit Provider [facility] STAFF PHYSICIAN Attending Provider Discharge Anticipated Barriers to Discharge: None Identified Patient/Family Education Needs: Review discharge instructions, discuss Ask Me Three Transportation: Facility Transport Plan: Anticipate Saroj will return to the [facility] when medically stable. He will follow up with facility providers and plan of care and transport with corrections staff. Social Determinants of Health Screening Will the Patient Participate in the Screening?: Unable to obtain Comments: [place] [facility] All Active Problems (Updated 09/16/24 @ 17:03 by Yun Martínez) Left leg swelling (Acute) Left leg DVT (Acute) Hypercoagulable state (Acute) Medical History H/O pyloric stenosis GERD (gastroesophageal reflux disease) COPD (chronic obstructive pulmonary disease) Opioid use disorder, moderate, dependence on buprenorphine/naloxone Hypertension Surgical History H/O pyloromyotomy as Family History Father Heart disease Cancer Mother Cancer Lung Social History Smoking/Tobacco Use Status: Former Tobacco Use Quit Date: 11/15/23 Tobacco: How many years used: 30 Smoking risk assessment performed?: Yes Alcohol Intake: former Drug use: Never Substance use type: does not use Details: no h/o IVDU Housing: other Additional Social history: currently encarcerated Readmission Within the Past 30 Days Yes or No: Yes Date of First Admission Date of 1st Admission: 09/21/24 Date of this Admission Date of Admission: 09/16/24 This admission was: Through ED
--- NOTE | 2024-09-17 12:56 | W.NUTRFU ---
Date of service: 09/17/24 Time of Service: 12:56 Nutrition Note NOTE: Reviewed pt's chart for initial assessment. Being treated for cellulitis of left leg with Zosyn and vancomycin. no diarrhea noted. Pt with hx of class I obesity. no concerns with nutrition related labs at this time would initially suggest consideration of probiotic supplement. No aggressive nutrition intervention planned at this time. Patient currently assessed as lower acute nutrition risk. Will continue to monitor weight, po intake, nutrition related labs, need/desire for nutrition education Time Spent in Nutritional Counseling and Treatment: 0
--- NOTE | 2024-09-17 12:57 | PGE_ITS ---
Date of Service Date of service: 09/17/24 Time of Service: 12:57 Assessment and Plan Assessment and plan (1) Cellulitis: Status: Resolved Assessment and plan: initially seen in the system in June 2024 for left lower extremity cellulitis with repeated admissions from August just finished a prolong course of antibiotics as per HPI No septic Continue vancomycin and Zosyn pending respiratory DDx of left lower ext. DVT was ruled out as per CT imaging?patient also on Pradaxa for unprovoked DVT Considering other differential diagnostic of chronic venous insufficiency or PAD (2) Hypertension: Assessment and plan: Continue home meds regimen (3) Opioid use disorder, moderate, dependence: Assessment and plan: -Continue outpatient suboxone (4) GERD (gastroesophageal reflux disease): Assessment and plan: Ongoing PPI (5) COPD (chronic obstructive pulmonary disease): Assessment and plan: Remains stable w/o exacerbation Ongoing outpatient therapy with LAMA and albuterol prn (6) Hypercoagulable state: Status: Acute Assessment and plan: Ongoing home dose Pradaxa 2/2 multiple thrombotic events in the past (7) Left leg DVT: Status: Acute Assessment and plan: Imaging completed and report pending (8) DVT prophylaxis: Status: Resolved Assessment and plan: On low-dose chronic pradaxa Discussed with Dr. Rodriguez Subjective Subjective Patient reports: no new complaints, voiding w/o difficulty and other (Pruritus left lower extremity); denies still having pain, nausea, vomiting, shortness of breath or fever Exam Narrative Exam Narrative: No acute distress, alert oriented x 4, clear lungs, S1-S2 no murmur regular moderate, abdomen is nondistended soft nontender, decreased edema and redness to left lower extremity/patient reporting ongoing pruritus and minimal laceration with meals when scratching last night Objective Last Vital Signs Temp 36.0 C L 09/17/24 07:59 Pulse 58 L 09/17/24 07:59 Resp 14 09/17/24 07:59 BP 120/80 09/17/24 07:59 Pulse Ox 97 09/17/24 07:59 Laboratory Results - last 24 hr 09/16/24 09/16/24 09/17/24 13:00 18:35 06:25 WBC 4.95 RBC 4.05 L Hgb 11.7 L Hct 35.5 L MCV 88 MCH 28.9 MCHC 33.0 RDW 13.2 Plt Count 194 MPV 10.6 Immature Gran % 0.2 Neutrophils % 47.7 Lymphocytes % 33.9 Monocytes % 9.1 Eosinophils % 8.1 Basophils % 1.0 Nucleated RBC % 0.0 Absolute Neutrophils 2.36 Absolute Lymphocytes 1.68 Absolute Monocytes 0.45 Absolute Eosinophils 0.40 Absolute Basophils 0.05 VBG Lactate 1.1 Sodium 142 Potassium 3.9 Chloride 104 Carbon Dioxide 27.4 Anion Gap 10.6 BUN 17 Creatinine 1.4 H Est GFR (CKD-EPI 2020) 60.47 Glucose 88 Calcium 9.3 Magnesium 2.1 Procalcitonin < 0.10 Random Vancomycin 18.8 Time Spent with Patient Time Spent with Patient: 25-34 minutes Time was spent: preparing to see the patient(eg.review tests), obtaining and/or reviewing separately otained hiistory, ordering medications,tests, procedures, referring, communicating with other health customer care professional, indepentently interpreting results, counseling the patient and care coordination
[2024-09-17] MEDS: Triamcinolone 0.1% CR 15 GM TUBE TP ×2 (17:31→21:19)
[2024-09-17 19:44] VITALS: BP 123/76; PULSE 57; RESP 20; TEMP 36.7; O2SAT 98
[2024-09-17] MEDS: VANCOMYCIN/WATER (PEG) 1.5 GM/300 ML BAG IVPB (22:58)
[2024-09-18] MEDS: PIPERACILLIN/TAZO 4.5 GM in Normal Saline 100 ML IVPB ×2 (03:25→08:08)
[2024-09-18 07:30] LABS: Abs Immature Grans 0.01 10^3/uL (0.0-0.06); HCT 36.2 % (40.0-50.0); HGB 12.3 g/dL (13.5-17.5); Immature Grans % 0.2 %; MCH 29.9 pg (27.0-33.0); MCHC 34.0 % (32.0-36.0); MCV 88 fL (80-95); MPV 10.5 fL (8.0-11.0); Platelet Count 214 10^3/uL (130-400); RBC 4.12 10^6/uL (4.36-5.78); RDW 13.3 % (11.8-14.1); RDW-SD 42.4 fL; WBC 5.19 10^3/uL (4.4-10.8)
[2024-09-18 07:37] LABS: Anion Gap 10.8 mmol/L (3-11); BUN 12 mg/dL (7-18); CO2 27.2 mmol/L (21.0-32.0); Calcium 9.4 mg/dL (8.5-10.1); Chloride 105 mmol/L (98-107); Estimated GFR 66.10 (mL/min/1.73m2); Glucose 91 mg/dL (74-106); Magnesium 2.2 mg/dL (1.8-2.4); Potassium 3.8 mmol/L (3.5-5.1); Sodium 143 mmol/L (136-145)
[2024-09-18] MEDS: Tiotropium/Olodaterol 10 PUFF INHALER 2 PUFF IH (07:58)
[2024-09-18 08:00] VITALS: BP 119/90; PULSE 70; RESP 16; TEMP 36.4; O2SAT 100
[2024-09-18] MEDS: Buprenorphine/Naloxone 2 mg/0.5 mg FILM 2 EACH SL (08:08)
[2024-09-18] MEDS: Buprenorphine/Naloxone 8 mg/2 mg FILM 2 EACH SL (08:08)
[2024-09-18] MEDS: Montelukast 10 MG TAB PO (08:10)
[2024-09-18] MEDS: Pantoprazole 40 MG TABCR PO (08:10)
[2024-09-18] MEDS: Lisinopril 10 MG TAB 30 MG PO (08:10)
[2024-09-18] MEDS: hydroCHLOROthiazide 12.5 MG TAB PO (08:10)
[2024-09-18] MEDS: Metoprolol CR 100 MG TABCR PO (08:11)
[2024-09-18] MEDS: amLODIPine 10 MG TAB PO (08:11)
[2024-09-18] MEDS: Normal Saline Flush 10 ML SYR IVP (08:11)
--- NOTE | 2024-09-18 09:04 | PDOC.CMPRO ---
Date of service: 09/18/24 Time of Service: 09:04 Care Management Progress Note Discharge Potential Discharge Needs: Other (return to corrections) Anticipated Barriers to Discharge: None Identified Patient/Family Education Needs: Review discharge instructions, discuss Ask Me Three Transportation: Facility Transport Plan: Anticipate Saroj will return to the [facility] when medically stable. He will follow up with facility providers and plan of care and transport with corrections staff.CM will follow and continue to support discharge planning. Social Determinants of Health Screening Will the Patient Participate in the Screening?: Unable to obtain Comments: [facility]
--- NOTE | 2024-09-18 09:19 | DSE_ITS ---
Date of service: 09/18/24 Time of Service: 09:19 DS: Diagnosis Discharge Diagnosis (1) Cellulitis: Status: Resolved (2) Hypertension: (3) Opioid use disorder, moderate, dependence: (4) GERD (gastroesophageal reflux disease): (5) COPD (chronic obstructive pulmonary disease): (6) Hypercoagulable state: Status: Acute (7) Left leg DVT: Status: Acute (8) DVT prophylaxis: Status: Resolved Discharge Plan Disposition [facility] Disposition: [facility] Condition: Improving Discharge Details Reason For Visit: Cellulitis s/p Failed Outpatient Treatment Admit Date/Time: 09/16/24 11:50 Admit Provider: Agus Rodriguez Attending Provider: Agus Rodriguez [facility] Hospital Course: This 54-year-old gentleman with history of HTN, opioid use disorder on burprenorphine, HTN, and COPD, GERD, MRSA positive, unprovoked DVT/PE currently on anticoagulation with Pradaxa presented in custody from the local longterm with worsening left leg swelling and redness to the ED. The patient had similar presentations from June 2024 including admissions X2 in August with discharged on Linezolid. The work-up in the ED was negative for sepsis. Denies fever, chills , dizziness, chest pain, shortness of breath , GI and urinary symptoms. Work-up was negative for leukocytosis; bloodwork was unremarkable. The patient was admitted to the hospitalist team for failed outpatient antibiotic therapy and IV antibiotics.Piperacillin /tazobactam and Vancomycin IV initiated in the ED. The patient was DVT negative as per imaging. Blood cultures remained negative. During the stay, the patient nicked the back of his legs d/t pruritis, superficial wound swabed and Gram stain grew GNR. Ongoing pruritus treated with triamcinolone topically. TEDs applied to legs and vascular referral at [facility] completed for differential of PVD. The patient is hemodynacmically stable, afebrile and will be discharged on a short course of linezolid, levofloxacin and probiotics to be given 3 hours apart of antibiotics. Legs should be elevated, onging TEDS and MRSA decontamination to be continued as per discussion with [employer] form LU[facility] FERNANDO Mclain which also include the decontamination of the living environment. In case of ongoing infectious cellulitis with a negative PVD Dx, the patient should be referred to infectious disease. Discussed with Dr. Rodriguez [place] Meds and New Rx's Prescriptions: New levofloxacin 750 mg tablet 750 mg PO DAILY Qty: 5 0RF linezolid [Zyvox] 600 mg tablet 600 mg PO BID Qty: 9 0RF Bio-K plus 50 billion cell capsule,delayed release(DR/EC) 1 cap PO DAILY Qty: 10 0RF Rx Instructions: Give 3 hours apart from antibiotics, please chlorhexidine gluconate [Antiseptic Skin Clnsr(chlorhe)] 4 % liquid 1 applic topical ONCE Qty: 473 0RF Rx Instructions: Daily body wash and hair shampoo for 5 days- dry skin & apply hydrating lotion- change into clean clothes after shower - change bed with clean bed linen daily chlorhexidine gluconate 0.12 % mouthwash 15 ml buccal BID Qty: 150 0RF Rx Instructions: mouthwash twice daily mupirocin 2 % Ointment 1 applic topical TID Qty: 22 0RF Rx Instructions: to nostrils for MRSA decontamination triamcinolone acetonide 0.1 % Cream 1 applic topical TID Qty: 80 0RF Rx Instructions: to LLE for pruritus Continued ondansetron 4 mg tablet,disintegrating 4 mg PO BID PRN dabigatran etexilate [Pradaxa] 150 mg capsule 150 mg PO BID Eucerin Advanced Repair Cream 1 applic topical BID Patient Comments: Apply cream on lower legs BID hydrochlorothiazide 12.5 mg capsule 12.5 mg PO DAILY umeclidinium-vilanterol [Anoro Ellipta] 62.5-25 mcg/actuation blister with device 1 inh inhalation DAILY pantoprazole 40 mg tablet,delayed release (DR/EC) 40 mg PO DAILY acetaminophen 325 mg capsule 650 mg PO BID PRN buprenorphine-naloxone 2-0.5 mg film 2 film sublingual DAILY Rx Instructions: place 1 strip/tab under (each) side of tongue buprenorphine-naloxone 8-2 mg film 2 film sublingual DAILY Rx Instructions: place 1 strip/tab under (each) side of tongue amlodipine 10 mg tablet 10 mg PO DAILY metoprolol succinate 100 mg tablet extended release 24 hr 100 mg PO DAILY montelukast 10 mg tablet 10 mg PO DAILY lisinopril 30 mg tablet 30 mg PO DAILY albuterol sulfate 90 mcg/actuation HFA aerosol inhaler 1 inh inhalation 6XD PRN Discontinued linezolid 600 mg tablet 600 mg PO BID Patient Comments: TAKE ONE TABLET BY MOUTH TWICE A DAY FOR 10 DAYS Discharge Instructions Referrals: [facility] [OTHER, Surgery] Referral Note: Referral for PVD studies to LEs, multiple cellulitis to LLE , DVT on chronic DOAC Jovita Bond [Primary Care Provider, Medicine] Referral Note: Follow-up within 7 days of discharge please Activity:: Activity as Tolerated Equipment/Supplies:: No Equipment Needed Diet:: heart healthy Discharge Orders Discharge Orders: Discharge Order (Routine); Ordered 09/18/24 Ordered By: Jacqueline Chu DS: Summary Time Spent with Patient providing and/or coordinating discharge services: Greater than 30 minutes Status at Discharge Functional status at discharge: independent ambulation Overall status at discharge: patient is back to baseline Mental Status: mental status grossly normal Speech and Movement: speech and movement normal Mood: congruent mood Affect: normal affect Quality:SDOH Health Related Social Needs: Health related social needs risk of homeless material hardship Health related social needs details pt resides in longterm Exam Narrative Exam Narrative: No acute distress, alert oriented x 4, clear lungs, S1-S2 no murmur regular moderate, abdomen is nondistended soft nontender, decreased edema and redness to left lower extremity/patient reporting ongoing pruritus and minimal laceration with nails is healing Psych Mental Status: mental status grossly normal Speech and Movement: speech and movement normal Mood: congruent mood Affect: normal affect DS: Data Vitals/I&O Vitals and I&O: Vital Signs Temperature 36.4 C L 09/18/24 08:00 Temperature Source Temporal Artery Scan 09/18/24 08:00 Pulse 70 09/18/24 08:00 Pulse Rhythm Regular 09/16/24 13:13 Respiratory Rate 16 09/18/24 08:00 Respiratory Effort Normal 09/16/24 13:13 Respiratory Depth Normal 09/16/24 13:13 Respiratory Pattern Normal 09/16/24 13:13 Blood Pressure 119/90 09/18/24 08:00 Blood Pressure Mean 99 09/18/24 08:00 Blood Pressure Position Sitting 09/16/24 08:17 Pulse Oximetry 100 09/18/24 08:00 Oxygen Delivery Method Room Air 09/18/24 08:00 Oxygen Flow Rate 0 09/18/24 08:00 Pain Level 0 09/18/24 08:00 Intake & Output 09/17/24 09/17/24 09/18/24 11:59 23:59 11:59 Intake Total 500 / 800 300 / 800 100 / 100 Balance 500 / 800 300 / 800 100 / 100 Intake: IV 500 / 800 300 / 800 100 / 100 Other: Urine Color Yellow Yellow Urine Appearance Clear Clear Urine Odor Normal Normal Data Completed and Pending Labs on day of discharge: Labs from last 24 hours 09/18/24 06:25 WBC 5.19 RBC 4.12 L Hgb 12.3 L Hct 36.2 L MCV 88 MCH 29.9 MCHC 34.0 RDW 13.3 Plt Count 214 MPV 10.5 Immature Gran % 0.2 Neutrophils % 46.3 Lymphocytes % 35.1 Monocytes % 8.3 Eosinophils % 8.9 Basophils % 1.2 Nucleated RBC % 0.0 Absolute Neutrophils 2.41 Absolute Lymphocytes 1.82 Absolute Monocytes 0.43 Absolute Eosinophils 0.46 Absolute Basophils 0.06 Sodium 143 Potassium 3.8 Chloride 105 Carbon Dioxide 27.2 Anion Gap 10.8 BUN 12 Creatinine 1.3 Est GFR (CKD-EPI 2020) 66.10 Glucose 91 Calcium 9.4 Magnesium 2.2 Preliminary micro results at discharge 09/17/24 13:35 Leg - Left Lower Wound Culture - Preliminary 09/16/24 10:10 Blood Blood Culture - Preliminary NO GROWTH 24 HOURS 09/16/24 09:40 Blood Blood Culture - Preliminary NO GROWTH 24 HOURS PFSH All Active Problems (Updated 09/16/24 @ 17:03 by Yun Martínez) Left leg swelling (Acute) Left leg DVT (Acute) Hypercoagulable state (Acute) Medical History H/O pyloric stenosis GERD (gastroesophageal reflux disease) COPD (chronic obstructive pulmonary disease) Opioid use disorder, moderate, dependence on buprenorphine/naloxone Hypertension Surgical History H/O pyloromyotomy as infant Family History Father Heart disease Cancer Mother Cancer Lung Social History Smoking/Tobacco Use Status: Former Tobacco Use Quit Date: 11/15/23 Tobacco: How many years used: 30 Smoking risk assessment performed?: Yes Alcohol Intake: former Drug use: Never Substance use type: does not use Details: no h/o IVDU Housing: other Additional Social history: currently encarcerated Time Spent with Patient Time Spent with Patient: >85 minutes Time was spent: preparing to see the patient(eg.review tests), obtaining and/or reviewing separately otained hiistory, ordering medications,tests, procedures, referring, communicating with other health career coordinator, indepentently interpreting results, counseling the patient and care coordination
[2024-09-18] MEDS: Triamcinolone 0.1% CR 15 GM TUBE TP ×2 (10:01→13:58)
[2024-09-18] MEDS: levoFLOXacin 500 MG, levoFLOXacin 250 MG 750 MG PO (10:38)
[2024-09-18] MEDS: Linezolid 600 MG TAB PO (10:38)
[2024-09-18] MEDS: Chlorhexidine Gluconate 0.12% Mouthwash 480 ML BTL MM (12:14)
[2024-09-18] MEDS: Mupirocin 2% Oint. 22 GM TUBE TP ×2 (12:15→13:58)
--- NOTE | 2024-09-18 14:33 | PDOC.CMDIS ---
Date of service: 09/18/24 Time of Service: 14:34 LACE Index Scoring Tool Questions: Length of Stay (in days): 2 Was the patient admitted via the E.D.?: Yes Comorbidities: Chronic Pulmonary Disease E.D. Visits: 4 Answers: Total Score: 11 Risk of Readmission: High Risk Care Management Discharge Plan Reason for Hospitalization: cellulitis Discharge Plan: Saroj will return to [facility] under the care of the corrections staff. He will follow up with their providers and plan of care and transport with corrections officers. Patient/Family Education Needs: Review discharge instructions, discuss Ask Me Three SDOH Health Related Social Needs: Health related social needs risk of homeless material hardship Health related social needs details pt [facility] in [facility]
== END 2024-09-18 14:47 ==
LOC: ER 13:01 → MS 13:11
PROVIDERS: Admitting Provider Family Medicine; Emergency Provider Nurse Practitioner Family; Responsible Provider Nurse Practitioner Acute Care; Visit Provider Family Medicine
DX: L03.116 Cellulitis of left lower limb (principal); F11.20 Opioid dependence, uncomplicated; I10 Essential (primary) hypertension; J44.9 Chronic obstructive pulmonary disease, unspecified; K21.9 Gastro-esophageal reflux disease without esophagitis; Z79.02 Long term (current) use of antithrombotics/antiplatelets; D68.59 Other primary thrombophilia; Z86.718 Personal history of other venous thrombosis and embolism; Z79.899 Other long term (current) drug therapy
CPT/HCPCS: 00123; 36415; 80048; 80053; 84145; 85652; 87040; 87077; 94640; 96365; 96366; 96367; 99285; 73701; 80202; 83605; 83735; 85025; 86140; 87070; 87186; 87205; 94664; 99223; 99232; 99239; G0378; J2543; J3373; J3490

== ENCOUNTER 2024-09-19 14:51 | Emergency (ER) | payer OTHER, SELFPAY ==
[2024-09-19 15:09] VITALS: BP 128/83; PULSE 80; RESP 14; TEMP 36.8; O2SAT 98
--- NOTE | 2024-09-19 18:33 | ED.GENADUL_ITS ---
Discharge Plan Disposition Patient Disposition: Home Condition: Good Discharge Details Clinical Impression: Cellulitis of left leg Primary Care Provider: Jovita Bond ED Provider: Jaleel Clark Home Meds and New Rx's Prescriptions: No Action ondansetron 4 mg tablet,disintegrating 4 mg PO BID PRN dabigatran etexilate [Pradaxa] 150 mg capsule 150 mg PO BID Eucerin Advanced Repair Cream 1 applic topical BID Patient Comments: Apply cream on lower legs BID hydrochlorothiazide 12.5 mg capsule 12.5 mg PO DAILY levofloxacin 750 mg tablet 750 mg PO DAILY Qty: 5 0RF linezolid [Zyvox] 600 mg tablet 600 mg PO BID Qty: 9 0RF Bio-K plus 50 billion cell capsule,delayed release(DR/EC) 1 cap PO DAILY Qty: 10 0RF Rx Instructions: Give 3 hours apart from antibiotics, please chlorhexidine gluconate [Antiseptic Skin Clnsr(chlorhe)] 4 % liquid 1 applic topical ONCE Qty: 473 0RF Rx Instructions: Daily body wash and hair shampoo for 5 days- dry skin & apply hydrating lotion- change into clean clothes after shower - change bed with clean bed linen daily chlorhexidine gluconate 0.12 % mouthwash 15 ml buccal BID Qty: 150 0RF Rx Instructions: mouthwash twice daily mupirocin 2 % Ointment 1 applic topical TID Qty: 22 0RF Rx Instructions: to nostrils for MRSA decontamination triamcinolone acetonide 0.1 % Cream 1 applic topical TID Qty: 80 0RF Rx Instructions: to LLE for pruritus umeclidinium-vilanterol [Anoro Ellipta] 62.5-25 mcg/actuation blister with device 1 inh inhalation DAILY pantoprazole 40 mg tablet,delayed release (DR/EC) 40 mg PO DAILY acetaminophen 325 mg capsule 650 mg PO BID PRN buprenorphine-naloxone 2-0.5 mg film 2 film sublingual DAILY Rx Instructions: place 1 strip/tab under (each) side of tongue buprenorphine-naloxone 8-2 mg film 2 film sublingual DAILY Rx Instructions: place 1 strip/tab under (each) side of tongue amlodipine 10 mg tablet 10 mg PO DAILY metoprolol succinate 100 mg tablet extended release 24 hr 100 mg PO DAILY montelukast 10 mg tablet 10 mg PO DAILY lisinopril 30 mg tablet 30 mg PO DAILY albuterol sulfate 90 mcg/actuation HFA aerosol inhaler 1 inh inhalation 6XD PRN Discharge Instructions Instructions: Cellulitis (Skin Infection), Adult ED Additional Instructions: At this time after creating a plan with the inpatient team, we will be discharging you back to your facility. For medical team: The inpatient medicine team requests that when the patient takes his levofloxacin and linezolid that he is being observed taking them and swallowing them for medical consumption confirmation. They also request that the triamcinolone, mupirocin, is applied 3 times per day as instructed on previous discharge instructions. They request that this is observed being performed as directed/prescribed. If the patient has worsening of his symptoms and does not show improvement over the next 48 hours then we would recommend return and recheck here. If you notice any worsening of your symptoms, or any new symptoms such as vomiting, diarrhea, fever, chills, shortness of breath, chest pain, numbness, weakness, or fainting , please return immediately to the emergency department for reevaluation. Please follow up with your primary care provider as soon as possible for reassessment and reevaluation. As always, it was a pleasure participating in your medical care today. Referrals: Jovita Bond [Primary Care Provider, Medicine] Discharge Data Discharge Date/Time-TO BE ENTERED AT DEPARTURE: 09/19/24 18:42 HPI General Date/Time Provider Initiated Documentation: 09/19/24 15:23 . HPI Narrative: 54-year-old male with past medical history of reactive airway disease, MRSA positive, opioid use disorder on buprenorphine, hypercoagulable state previous blood clots on Pradaxa, COPD, hypertension, who [facility], with multiple recent admissions for cellulitis, presents today for cellulitis. Patient has had few recurrent episodes of cellulitis requiring IV antibiotics. Most recent of which was an admission on 09/16/2024, he was admitted for 2 days and subsequently discharged on Zyvox and levofloxacin back to the long-term, as well as a strict regimen of chlorhexidine, mupirocin, triamcinolone cream. He has been discharged for 24 hours, and presents back today out of concern for worsening redness. Patient states that the redness has increased compared to when he was discharged. He feels that IV antibiotics are needed. He denies chest pain or shortness of breath. He denies any other complaints. He states that he is doing his best to adhere to the medical regiment prescribed by the discharging practitioner, however sometimes he is not able to be fully compliant. He denies any other complaints at this time. No other modifying factors. Related Data Home Medications ?Medication ?Instructions ?Recorded ?Confirmed acetaminophen 325 mg capsule 650 mg PO BID PRN 5 09/16/24 albuterol sulfate 90 mcg/actuation 1 inh inhalation 6X D PRN 07/02/24 09/16/24 aerosol inhaler amlodipine 10 mg tablet 10 mg PO DAILY 07/02/2411/03 buprenorphine 2 mg-naloxone 0.5 mg 2 film sublingual D AILY 07/02/24 09/16/24 sublingual film buprenorphine 8 mg-naloxone 2 mg 2 film sublingual THAI LY 07/02/24 09/16/24 sublingual film lisinopril 30 mg tablet 30 mg PO DAILY 07/02/2411/03 metoprolol succinate 100 mg 100 mg PO DAILY 07/02/24 0 09/16/24 tablet,extended release 24 hr montelukast 10 mg tablet 10 mg PO DAILY 07/02/2411/03 pantoprazole 40 mg tablet,delayed 40 mg PO DAILY 07/0209/16/24 release umeclidinium 62.5 mcg-vilanterol 1 inh inhalation BIBIANA Y 07/02/24 09/16/24 25 mcg/actuation powdr for inhalation (Anoro Ellipta) dabigatran etexilate 150 mg 150 mg PO BID 08/22/2411/03 capsule (Pradaxa) emollient combination no.119 1 applic topical BID 08/1009/16/24 (Eucerin Advanced Repair topical cream) ondansetron 4 mg disintegrating 4 mg PO BID PRN 09/16/24 tablet hydrochlorothiazide 12.5 mg capsule 12.5 mg PO DAILY 0 09/16/24 09/16/24 L. acidophilus,casei,rhamnosus 50 1 cap PO DAILY #10 c aps 09/18/24 billion cell capsule,delayed release (Bio-K plus) chlorhexidine gluconate 0.12 % 15 ml buccal BID #150 m L 09/18/24 mouthwash chlorhexidine gluconate 4 % 1 applic topical ONCE #473 mL 09/18/24 topical liquid (Antiseptic Skin Cleanser (chlorhexidine)) levofloxacin 750 mg tablet 750 mg PO DAILY #5 tabs 01/03 linezolid 600 mg tablet (Zyvox) 600 mg PO BID #9 tabs 09/18/24 mupirocin 2 % topical ointment 1 applic topical TID #2 2 grams 09/18/24 triamcinolone acetonide 0.1 % 1 applic topical TID #80 grams 09/18/24 topical cream Previous Rx's ?Medication ?Instructions ?Recorded L. acidophilus,casei,rhamnosus 50 1 cap PO DAILY #10 c aps 09/18/24 billion cell capsule,delayed release (Bio-K plus) chlorhexidine gluconate 0.12 % 15 ml buccal BID #150 m L 09/18/24 mouthwash chlorhexidine gluconate 4 % 1 applic topical ONCE #473 mL 09/18/24 topical liquid (Antiseptic Skin Cleanser (chlorhexidine)) levofloxacin 750 mg tablet 750 mg PO DAILY #5 tabs 01/03 linezolid 600 mg tablet (Zyvox) 600 mg PO BID #9 tabs 09/18/24 mupirocin 2 % topical ointment 1 applic topical TID #2 2 grams 09/18/24 triamcinolone acetonide 0.1 % 1 applic topical TID #80 grams 09/18/24 topical cream Allergies Allergy/AdvReac Type Severity Reaction Status Date / Time codeine Allergy Intermediate Hives Verified 09/19/24 15:12 sulfur dioxide Allergy Intermediate Hives Verified 09/19/24 15:12 General Stated Complaint: Cellulitis CARLOS A: 3 Exam Narrative Exam Narrative: 1.Const: Well-nourished, Well-developed, appearing stated age 2.Eyes: PERRL, no conjunctival injection, and symmetrical lids. 3.ENT: Atraumatic external nose and ears. Moist MM. Neck: Symmetric, trachea midline, No thyromegaly. 4.CVS: +S1/S2, Peripheral pulses 2+ and equal in all extremities. Brisk capillary refill in all extremities. 5.RESP: Unlabored respiratory effort. Clear to auscultation bilaterally. No wheezes rales or rhonchi 6.GI: Soft, Nontender/Nondistended, No hepatosplenomegaly. No guarding or rebound. 7.MSK: Normocephalic/Atraumatic, Extremities w/o deformity or ttp No cyanosis or clubbing, Normal movement of all extremities 8.Skin: Warm, Dry. No rashes or lesions. Patient demonstrates mild rash over the anterior reed with mild redness and erythema. Erythema is not completely circumferential, however it does extend towards the calf. No vesicles or bulla. Mild induration and edema. Please see included images. 9.Neuro: educational recruiter II-XII grossly intact. Sensation grossly intact, no focal neurologic deficits. 10.Psych: (AAO) x3. Appropriate mood and affect Course Vital Signs Vital signs: Vital Signs Temperature 36.8 C 09/19/24 15:09 Pulse 80 09/19/24 15:09 Respiratory Rate 14 09/19/24 15:09 Blood Pressure 128/83 09/19/24 15:09 Pulse Oximetry 98 09/19/24 15:09 Temperature 36.8 C 09/19/24 15:09 Temperature Source Oral 09/19/24 15:09 Pulse 80 09/19/24 15:09 Respiratory Rate 14 09/19/24 15:09 Blood Pressure 128/83 09/19/24 15:09 Blood Pressure Position Sitting 09/19/24 15:09 Pulse Oximetry 98 09/19/24 15:09 Oxygen Delivery Method Room Air 09/19/24 15:09 Oxygen Flow Rate 0 09/19/24 15:09 Pain Level 0 09/19/24 15:09 Medical Decision Making 54-year-old male with past medical history of reactive airway disease, MRSA positive, opioid use disorder on buprenorphine, hypercoagulable state previous blood clots on Pradaxa, COPD, hypertension, who [facility], with multiple recent admissions for cellulitis, presents today for cellulitis. Patient has had few recurrent episodes of cellulitis requiring IV antibiotics. Most recent of which was an admission on 09/16/2024, he was admitted for 2 days and subsequently discharged on Zyvox and levofloxacin back to the long-term, as well as a strict regimen of chlorhexidine, mupirocin, triamcinolone cream. He has been discharged for 24 hours, and presents back today out of concern for worsening redness. Patient states that the redness has increased compared to when he was discharged. He feels that IV antibiotics are needed. He denies chest pain or shortness of breath. He denies any other complaints. He states that he is doing his best to adhere to the medical regiment prescribed by the discharging practitioner, however sometimes he is not able to be fully compliant. He denies any other complaints at this time. No other modifying factors. Exam demonstrates mild erythema around the anterior left reed, as well as a mild component behind the posterior aspect of the reed/calf as well. That being said the erythema appears quite mild and does not seem to demonstrate evidence of fulminant cellulitis or severe cellulitis. No current clinical evidence of staph scalded skin syndrome, erythema multiforme, erythema migrans, toxic epidermal necrolysis, Quinones-Demario syndrome, Kawasaki-like rash, meningococcemia, pemphigus vulgaris, or necrotizing fasciitis. Patient has no fever, tachycardia, hypotension or signs of shock or severe systemic infection. For that matter is labs on his last visit were also notably benign. He shows no evidence to suggest sepsis. I did contact Jacqueline Chu, who admitted and discharged the patient. She came down and evaluated it and feels that the changes are notably minimal compared to the time of discharge. She is also concerned that the patient may not be completely adhering to the strict medical regiment that was being recommended. We discussed the case with the hospitalist medicine team. At this time as there is good bioavailability with the levofloxacin and linezolid as prescribed, and the patient shows no evidence of significant sepsis, systemic infection, or other significant abnormality, medicine team does not feel that hospital admission is indicated. For that matter I do not see an indication for admission either with his current vital signs and clinical standpoint. We will discharge back to the long-term facility, with strict instructions for observation of him taking the medications, adherence to the requested protocol for the administration of the prescribed creams at the time of his last discharge, as well as close follow-up and reassessment in 48 hours if needed. I have extensively reviewed the treatment plan and discharge instructions with the patient. I have addressed all patient concerns at this time. The patient was made aware of what symptoms to monitor for that would warrant a return to the emergency department. Discussed the plan with the patient, they demonstrate verbal understanding and agreement with our assessment and plan at this time. The documentation in this chart was dictated using SPO dictation software. Please excuse any dictation errors. Quality:SDOH Health Related Social Needs: 2 Health related social needs risk of homeless material hardship Health related social needs details [facility] in [facility] All Active Problems (Updated 09/19/24 @ 18:39 by Jaleel Clark DO) Cellulitis of left leg (Acute) Left leg swelling (Acute) Left leg DVT (Acute) Medical History H/O pyloric stenosis GERD (gastroesophageal reflux disease) COPD (chronic obstructive pulmonary disease) Opioid use disorder, moderate, dependence on buprenorphine/naloxone Hypertension Surgical History H/O pyloromyotomy as infant Family History Father Heart disease Cancer Mother Cancer Lung Social History Smoking/Tobacco Use Status: Former Tobacco Use Quit Date: 11/15/23 Tobacco: How many years used: 30 Smoking risk assessment performed?: Yes Alcohol Intake: former Drug use: Never Substance use type: does not use Details: no h/o IVDU Housing: other Additional Social history: currently encarcerated
[2024-09-19 18:41] VITALS: BP 128/83; PULSE 80; RESP 14; TEMP 36.8; O2SAT 98
== END 2024-09-19 18:42 | disposition home or self-care (01) ==
PROVIDERS: Emergency Provider Student in an Organized Health Care Education/Training Program
DX: L03.116 Cellulitis of left lower limb (principal); I10 Essential (primary) hypertension; J45.909 Unspecified asthma, uncomplicated; D68.59 Other primary thrombophilia; Z79.01 Long term (current) use of anticoagulants; Z87.891 Personal history of nicotine dependence
CPT/HCPCS: 99283